=== PATIENT | male | born 1965 | race African-American/Black ===

== ENCOUNTER 2016-11-09 16:06 | Inpatient (IN) | payer OTHER ==
[2016-11-09 16:30] VITALS: BMI 25.2
--- NOTE | 2016-11-09 18:19 | HP ---
CIWA Score - CIWA Score Nausea/Vomitin-No Nausea/No Vomiting Muscle Tremors: 4-Moderate,w/Arms Extend Anxiety: 4-Mod. Anxious/Guarded Agitation: 4-Moderately Restless Paroxysmal Sweats: 3 Orientation: 0-Oriented Tacttile Disturbances: 0-None Auditory Disturbances: 0-None Visual Disturbances: 0-None Headache: 0-None Present CIWA-Ar Total Score: 15 Admission ROS BHS - HPI Chief Complaint: Withdrawal sx. Allergies/Adverse Reactions: Allergies Allergy/AdvReac Type Severity Reaction Status Date / Time No Known Allergies Allergy Verified 09/24/14 17:44 History of Present Illness: 51 y/o man with a long hx. of alcoholism is admitted for detox.Pt. has been in previous detox,reports 3 yrs. drug free. Exam Limitations: No Limitations - Ebola screening Have you traveled outside of the country in the last 21 days: No Have you had contact with anyone from an Ebola affected area: No Have you been sick,other than usual withdrawal symptoms: No Do you have a fever: No - Review of Systems Constitutional: Diaphoresis EENT: reports: No Symptoms Reported Respiratory: reports: No Symptoms reported Cardiac: reports: No Symptoms Reported GI: reports: Nausea, Abdominal cramping : reports: No Symptoms Reported Musculoskeletal: reports: Other (pain in both feet) Integumentary: reports: Sweating Neuro: reports: Tremors Endocrine: reports: No Symptoms Reported Hematology: reports: No Symptoms Reported Psychiatric: reports: No Sypmtoms Reported Other Systems: Reviewed and Negative Patient History - Patient Medical History Hx Anemia: No Hx Asthma: No Hx Chronic Obstructive Pulmonary Disease (COPD): No Hx Cancer: No Hx Cardiac Disorders: No Hx Congestive Heart Failure: No Hx Hypertension: No Hx Hypercholesterolemia: No Hx Pacemaker: No HX Cerebrovascular Accident: No Hx Seizures: No Hx Dementia: No Hx Diabetes: Yes (TYPE II on metformin & lantus) Hx Gastrointestinal Disorders: Yes Hx Liver Disease: No Hx Genitourinary Disorders: No Hx Sexually Transmitted Disorders: No Hx Renal Disease (ESRD): No Hx Thyroid Disease: No Hx Human Immunodeficiency Virus (HIV): No Hx Hepatitis C: No Hx Depression: Yes (ANXIETY) Hx Suicide Attempt: No Hx Bipolar Disorder: No Hx Schizophrenia: No - Patient Surgical History Past Surgical History: No Hx Neurologic Surgery: No Hx Cataract Extraction: No Hx Cardiac Surgery: No Hx Lung Surgery: No Hx Breast Surgery: No Hx Breast Biopsy: No Hx Abdominal Surgery: No Hx Appendectomy: No Hx Cholecystectomy: No Hx Genitourinary Surgery: No Hx Section: No Hx Orthopedic Surgery: No Other Surgical History: right inguinal hernia repair 5 yearsago Anesthesia Reaction: No - PPD History Previous Implant?: Yes Documented Results: Negative w/proof Implanted On Prior [facility] Admission?: Yes Date: 09/26/14 Results: 0mm PPD to be Administered?: Yes - Smoking Cessation Smoking history: Current every day smoker Have you smoked in the past 12 months: Yes Aproximately how many cigarettes per day: 3 Cigars Per Day: 0 Hx Chewing Tobacco Use: No Initiated information on smoking cessation: Yes 'Breaking Loose' booklet given: 11/09/16 - Substance & Tx. History Hx Alcohol Use: Yes Hx Substance Use: Yes Substance Use Type: Alcohol, Cocaine Hx Substance Use Treatment: Yes (Detox) - Substances Abused Alcohol Route: Oral Frequency: Daily Amount used: Vodka 1 pint, Beer 1(pack) Age of first use: 15 Date of Last Use: 11/09/16 Crack Route: Smoking Frequency: Daily Amount used: $200.00 Age of first use: 22 Date of Last Use: 11/09/16 Family Disease History - Family Disease History Family History: Denies Admission Physical Exam [facility] - Vital Signs Vital Signs: Vital Signs - 24 hr 11/09/16 16:27 Temperature 96.2 F L Pulse Rate 89 Respiratory 18 Rate Blood Pressure 140/89 - Physical General Appearance: Yes: Alcohol on Breath, Tremorous, Irritable, Sweating, Anxious HEENTM: Yes: Within Normal Limits Respiratory: Yes: Chest Non-Tender, Lungs Clear, Normal Breath Sounds Neck: Yes: Supple Breast: Yes: Breast Exam Deferred Cardiology: Yes: Regular Rhythm, Regular Rate, S1, S2 Abdominal: Yes: Normal Bowel Sounds, Non Tender, Soft Genitourinary: Yes: Within Normal Limits Back: Yes: Within Normal Limits Musculoskeletal: Yes: Within Normal Limits Extremities: Yes: Tremors Neurological: Yes: Fully Oriented, Alert Integumentary: Yes: Diaphoresis Lymphatic: Yes: Within Normal Limits - Diagnostic (1) Alcohol dependence with uncomplicated withdrawal Current Visit: Yes Status: Acute (2) Cocaine dependence Current Visit: Yes Status: Chronic (3) DM Diabetes mellitus type 2 Current Visit: Yes Status: Chronic (4) Eczema Current Visit: Yes Status: Chronic Qualifiers: Eczema type: flexural Qualified Code(s): L20.82 - Flexural eczema (5) GERD (gastroesophageal reflux disease) Current Visit: Yes Status: Chronic Qualifiers: Esophagitis presence: without esophagitis Qualified Code(s): K21.9 - Gastro-esophageal reflux disease without esophagitis Cleared for Admission BHS - Detox or Rehab [facility] Level of Care: Medically Managed Detox Regimen/Protocol: Librium S Breath Alcohol Content Breath Alcohol Content: 0.066 Urine Drug Screen - Results Drug Screen Negative: No Urine Drug Screen Results: GUERRERO-Cocaine
[2016-11-09] MEDS ORDERED: LOPERAMIDE HCL 2 MG CAPSULE PO PRN (18:28)
[2016-11-09] MEDS ORDERED: MAGNESIUM HYDROX 2400MG/30ML ORAL SUSPENSION 30 ML CUP PO PRN (18:28)
[2016-11-09] MEDS ORDERED: guaiFENesin/D-METHORPHAN HB 10 ML UNIT-DOSE CUPS PO PRN (18:28)
[2016-11-09] MEDS ORDERED: chlordiazePOXIDE HCL 25 MG CAPSULE PO ONE (18:28)
[2016-11-09] MEDS ORDERED: MAG HYDROX/AL HYDROX/SIMETH 30 ML UNIT-DOSE CUP PO PRN (18:28)
[2016-11-09] MEDS ORDERED: P-EPHED 60MG/TRIPROLIDI 2.5MG TABLET PO PRN (18:28)
[2016-11-09] MEDS ORDERED: IBUPROFEN 400 MG TABLET (FP) PO PRN (18:28)
[2016-11-09] MEDS ORDERED: ACETAMINOPHEN 325 MG TABLET (FP) PO PRN (18:28)
[2016-11-09] MEDS ORDERED: diphenhydrAMINE HCL 50 MG CAPSULE PO PRN (18:28)
[2016-11-09] MEDS ORDERED: NICOTINE POLACRILEX 2 MG GUM BUC PRN (18:28)
[2016-11-09] MEDS ORDERED: MAGNESIUM CITRATE 300 ML BOTTLE PO PRN (18:28)
[2016-11-09] MEDS ORDERED: chlordiazePOXIDE HCL 25 MG CAPSULE PO PRN (18:28)
[2016-11-09] MEDS ORDERED: MENTHOL/PHENOL 1 EACH UD MM PRN (18:28)
[2016-11-09] MEDS ORDERED: hydrOXYzine PAMOATE 50 MG CAPSULE (FP) PO PRN (18:28)
[2016-11-09] MEDS: PANTOPRAZOLE 40 MG TABLET (FP) PO SCH (20:16)
[2016-11-09] MEDS ORDERED: INSULIN (NOVOLOG) ASPART 100 UNITS/ML 10ML VIAL ONE (21:58)
[2016-11-09 22:27] LABS: URINE APPEARANCE CLEAR; URINE BILIRUBIN NEGATIVE (NEGATIVE); URINE BLOOD 1+ (NEGATIVE); URINE COLOR LTYELLOW; URINE GLUCOSE (UA) 3+ (NEGATIVE); URINE KETONE 1+ (NEGATIVE); URINE LEUK ESTERASE NEGATIVE (NEGATIVE); URINE NITRITE NEGATIVE (NEGATIVE); URINE UROBILINOGEN NEGATIVE mg/dL (0.2-1.0)
[2016-11-09 22:40] LABS: URINE PROTEIN 2+ (NEGATIVE)
[2016-11-09 22:42] LABS: URINE MUCUS RARE; URINE RBC 1 /hpf (0-3); URINE WBC 2 /hpf (3-5)
[2016-11-09] MEDS: THIAMINE HCL 100 MG TABLET (FP) PO SCH (22:45)
[2016-11-09] MEDS: chlordiazePOXIDE HCL 25 MG CAPSULE PO SCH (22:45)
[2016-11-09] MEDS: INSULIN SLIDING SCALE (NOVOLOG) 1 VIAL SQ SCH (22:49)
[2016-11-09] MEDS: INSULIN DETEMIR 100 UNITS/ML MDV SQ SCH (22:49)
[2016-11-10] MEDS: chlordiazePOXIDE HCL 25 MG CAPSULE PO SCH ×4 (05:47→22:05)
[2016-11-10] MEDS: INSULIN SLIDING SCALE (NOVOLOG) 1 VIAL SQ SCH ×4 (06:54→21:40)
[2016-11-10] MEDS: metFORMIN HCL 500 MG TABLET (FP) PO SCH ×2 (07:51→17:26)
[2016-11-10] MEDS: PRENATAL VITAMINS W/ FOLIC ACID TABLET (FP) PO SCH (10:32)
[2016-11-10] MEDS: PANTOPRAZOLE 40 MG TABLET (FP) PO SCH (10:32)
[2016-11-10 10:35] LABS: ALBUMIN 2.9 g/dl (3.4-5.0); ANION GAP 10 (8-16); CALCIUM 8.2 mg/dL (8.5-10.1); CO2 27 mmol/L (21-32); GLUCOSE,RANDOM 146 mg/dL (74-106); MCH 23.3 pg (25.7-33.7); MCHC 31.9 g/dl (32.0-35.9); MEAN CELL VOLUME 72.9 fl (80-96); MEAN PLT VOLUME 9.3 fl (7.5-11.1); PLATELET COUNT 191 K/MM3 (134-434); RDW 15.8 % (11.9-15.9); WHITE BLOOD COUNT 5.2 K/mm3 (4.0-10.0)
[2016-11-10 10:41] LABS: ALK PHOS 105 U/L (45-117); BILIRUBIN,TOTAL 0.6 mg/dL (0.2-1.0); CREATININE 0.9 mg/dL (0.7-1.3); SGOT/AST 18 U/L (15-37); SGPT/ALT 23 U/L (12-78); TOT PROT 6.7 g/dl (6.4-8.2)
[2016-11-10] MEDS ORDERED: INSULIN (NOVOLOG) ASPART 100 UNITS/ML 10ML VIAL ONE ×2 (11:15→21:33)
--- NOTE | 2016-11-10 13:44 | PN ---
S CIWA - CIWA Score Nausea/Vomitin Muscle Tremors: 4-Moderate,w/Arms Extend Anxiety: 4-Mod. Anxious/Guarded Agitation: 4-Moderately Restless Paroxysmal Sweats: No Perspiration Orientation: 0-Oriented Tacttile Disturbances: 1-Very Mild Itch/Numbness Auditory Disturbances: 0-None Visual Disturbances: 0-None Headache: 2-Mild CIWA-Ar Total Score: 18 BHS Progress Note (SOAP) Subjective: Sweating, nausea, anxious, interrupted sleep Objective: 11/10/16 13:42 Last Vital Signs Temp Pulse Resp BP Pulse Ox 96.5 F L 89 18 124/81 11/10/16 09:24 11/10/16 09:24 11/10/16 09:24 11/10/16 09:24 Laboratory Tests 11/09/16 11/10/16 11/10/16 21:00 05:46 07:45 WBC 5.2 RBC 4.91 Hgb 11.4 L Hct 35.8 MCV 72.9 L MCH 23.3 L MCHC 31.9 L RDW 15.8 Plt Count 191 MPV 9.3 Sodium Potassium Chloride Carbon Dioxide Anion Gap BUN Creatinine Creat Clearance w eGFR POC Glucometer 109 Random Glucose Calcium Total Bilirubin AST ALT Alkaline Phosphatase Total Protein Albumin Urine Color Ltyellow Urine Appearance Clear Urine pH 5.0 Ur Specific [place] 1.025 Urine Protein 2+ H Urine Glucose (UA) 3+ H Urine Ketones 1+ H Urine Blood 1+ H Urine Nitrite Negative Urine Bilirubin Negative Urine Urobilinogen Negative Ur Leukocyte Esterase Negative Urine RBC 1 Urine WBC 2 Ur Epithelial Cells Rare Urine Mucus Rare RPR Titer 11/10/16 11/10/16 11/10/16 07:45 07:45 11:13 WBC RBC Hgb Hct MCV MCH MCHC RDW Plt Count MPV Sodium 140 Potassium 3.8 Chloride 103 Carbon Dioxide 27 Anion Gap 10 BUN 14 Creatinine 0.9 Creat Clearance w eGFR > 60 POC Glucometer 378 Random Glucose 146 H D Calcium 8.2 L Total Bilirubin 0.6 AST 18 D ALT 23 Alkaline Phosphatase 105 D Total Protein 6.7 Albumin 2.9 L Urine Color Urine Appearance Urine pH Ur Specific [place] Urine Protein Urine Glucose (UA) Urine Ketones Urine Blood Urine Nitrite Urine Bilirubin Urine Urobilinogen Ur Leukocyte Esterase Urine RBC Urine WBC Ur Epithelial Cells Urine Mucus RPR Titer Nonreactive Labs noted: Abnormal UA Assessment: 11/10/16 13:44 Withdrawal symptoms Noted with abnormal UA Plan: Continue detox Abnormal UA: encouraged to drink lots of water, repeat UA
[2016-11-10] MEDS: INSULIN DETEMIR 100 UNITS/ML MDV SQ SCH (21:33)
[2016-11-10] MEDS: THIAMINE HCL 100 MG TABLET (FP) PO SCH (21:40)
[2016-11-11] MEDS: chlordiazePOXIDE HCL 25 MG CAPSULE PO SCH ×3 (06:09→16:58)
[2016-11-11] MEDS ORDERED: INSULIN (NOVOLOG) ASPART 100 UNITS/ML 10ML VIAL ONE ×3 (07:25→21:18)
[2016-11-11] MEDS: INSULIN SLIDING SCALE (NOVOLOG) 1 VIAL SQ SCH ×4 (07:27→22:18)
[2016-11-11] MEDS: metFORMIN HCL 500 MG TABLET (FP) PO SCH ×2 (07:27→16:54)
--- NOTE | 2016-11-11 09:59 | EKG ---
Test Reason : Blood Pressure : / mmHG Vent. Rate : 084 BPM Atrial Rate : 084 BPM P-R Int : 146 ms QRS Dur : 090 ms QT Int : 374 ms P-R-T Axes : 070 050 045 degrees QTc Int : 441 ms NORMAL SINUS RHYTHM NORMAL ECG NO PREVIOUS ECGS AVAILABLE Confirmed by SURJIT HERNÁNDEZ MD ([id number]) on 11/11/2016 9:58:37 AM Referred By: Confirmed By:SURJIT HERNÁNDEZ MD
[2016-11-11] MEDS: PRENATAL VITAMINS W/ FOLIC ACID TABLET (FP) PO SCH (10:22)
[2016-11-11] MEDS: PANTOPRAZOLE 40 MG TABLET (FP) PO SCH (10:22)
--- NOTE | 2016-11-11 11:34 | PN ---
[facility] CIWA - CIWA Score Nausea/Vomitin-No Nausea/No Vomiting Muscle Tremors: 3 Anxiety: 2 Agitation: 2 Paroxysmal Sweats: 3 Orientation: 0-Oriented Tacttile Disturbances: 0-None Auditory Disturbances: 0-None Visual Disturbances: 0-None Headache: 0-None Present CIWA-Ar Total Score: 10 [facility] Progress Note (SOAP) Subjective: Anxiety,tremors,sweating,interrupted sleep,restless Objective: 11/11/16 11:34 Vital Signs - 8 hr 11/11/16 11/11/16 04:00 09:10 Temperature 97.4 F L 97.6 F Pulse Rate 94 H 81 Respiratory 18 18 Rate Blood Pressure 138/83 133/87 Laboratory Last Values WBC 5.2 K/mm3 (4.0-10.0) 11/10/16 07:45 RBC 4.91 M/mm3 (4.00-5.60) 11/10/16 07:45 Hgb 11.4 GM/dL (11.7-16.9) L 11/10/16 07:45 Hct 35.8 % (35.4-49) 11/10/16 07:45 MCV 72.9 fl (80-96) L 11/10/16 07:45 MCH 23.3 pg (25.7-33.7) L 11/10/16 07:45 MCHC 31.9 g/dl (32.0-35.9) L 11/10/16 07:45 RDW 15.8 % (11.9-15.9) 11/10/16 07:45 Plt Count 191 K/MM3 (134-434) 11/10/16 07:45 MPV 9.3 fl (7.5-11.1) 11/10/16 07:45 Sodium 140 mmol/L (136-145) 11/10/16 07:45 Potassium 3.8 mmol/L (3.5-5.1) 11/10/16 07:45 Chloride 103 mmol/L (98-107) 11/10/16 07:45 Carbon Dioxide 27 mmol/L (21-32) 11/10/16 07:45 Anion Gap 10 (8-16) 11/10/16 07:45 BUN 14 mg/dL (7-18) 11/10/16 07:45 Creatinine 0.9 mg/dL (0.7-1.3) 11/10/16 07:45 Creat Clearance w eGFR > 60 (>60) 11/10/16 07:45 POC Glucometer 315 UNITS (()) 11/11/16 06:12 Random Glucose 146 mg/dL (74-106) H D 11/10/16 07:45 Calcium 8.2 mg/dL (8.5-10.1) L 11/10/16 07:45 Total Bilirubin 0.6 mg/dL (0.2-1.0) 11/10/16 07:45 AST 18 U/L (15-37) D 11/10/16 07:45 ALT 23 U/L (12-78) 11/10/16 07:45 Alkaline Phosphatase 105 U/L (45-117) D 11/10/16 07:45 Total Protein 6.7 g/dl (6.4-8.2) 11/10/16 07:45 Albumin 2.9 g/dl (3.4-5.0) L 11/10/16 07:45 Urine Color Ltyellow 11/09/16 21:00 Urine Appearance Clear 11/09/16 21:00 Urine pH 5.0 (5.0-8.0) 11/09/16 21:00 Ur Specific [place] 1.025 (1.005-1.025) 11/09/16 21:00 Urine Protein 2+ (NEGATIVE) H 11/09/16 21:00 Urine Glucose (UA) 3+ (NEGATIVE) H 11/09/16 21:00 Urine Ketones 1+ (NEGATIVE) H 11/09/16 21:00 Urine Blood 1+ (NEGATIVE) H 11/09/16 21:00 Urine Nitrite Negative (NEGATIVE) 11/09/16 21:00 Urine Bilirubin Negative (NEGATIVE) 11/09/16 21:00 Urine Urobilinogen Negative mg/dL (0.2-1.0) 11/09/16 21:00 Ur Leukocyte Esterase Negative (NEGATIVE) 11/09/16 21:00 Urine RBC 1 /hpf (0-3) 11/09/16 21:00 Urine WBC 2 /hpf (3-5) 11/09/16 21:00 Ur Epithelial Cells Rare /hpf (FEW) 11/09/16 21:00 Urine Mucus Rare 11/09/16 21:00 RPR Titer Nonreactive (NONREACTIVE) 11/10/16 07:45 labs noted Assessment: 11/11/16 11:35 Withdrawal sx. Plan: Continue detox
--- NOTE | 2016-11-11 12:27 | CONSULT ---
[facility] Psychiatric Consult - Data Date of interview: 11/11/16 Admission source: [facility] Identifying data: This is one of multiple admissions to [facility] for this 51 y/ o AA male seeking detox treatment on for alcohol and cocaine (crack) dependence.Patient is single without children,homeless,unemployed and supported on SSI benefits. Substance Abuse History: Discussed in detail with the patient in my interview.Mr Zazueta confirms data contained in this [facility] report. - Smoking Cessation. Smoking history: Current every day smoker. Have you smoked in the past 12 months: Yes. Aproximately how many cigarettes per day: 3. Cigars Per Day: 0. Hx Chewing Tobacco Use: No. Initiated information on smoking cessation : Yes. 'Breaking Loose' booklet given: 11/09/16. - Substance & Tx. History. Hx Alcohol Use: Yes. Hx Substance Use: Yes. Substance Use Type: Alcohol, Cocaine. Hx Substance Use Treatment: Yes (Detox). - Substances Abused. Alcohol. Route: Oral. Frequency: Daily. Amount used: Vodka 1 pint, Beer 1( pack). Age of first use: 15. Date of Last Use: 11/09/16. Crack. Route: Smoking. Frequency: Daily. Amount used: $200.00. Age of first use: 22. Date of Last Use: 11/09/16 Medical History: GERD and diabetes mellitus. Psychiatric History: Diagnosed with Bipolar Disorder.Patient reports one admission,years ago,to [facility].No OPD care for several months.Patient has abstained from all aspects of psychiatric care.Still not willing to get back on medications.Mr Zazueta states that he has no recall of the names of psychotropic medications prescribed to him in the past.He denies history of suicide attempts. Physical/Sexual Abuse/Trauma History: Patient denies. Additional Comment: Urine Drug Screen Results: GUERRERO-Cocaine.Noted. Mental Status Exam - Mental Status Exam Alert and Oriented to: Time, Place, Person Cognitive Function: Good Patient Appearance: Well Groomed Mood: Hopeful, Euthymic Affect: Normal Range Patient Behavior: Fatigued, Appropriate, Cooperative Speech Pattern: Clear Voice Loudness: Normal Thought Process: Goal Oriented Thought Disorder: Not Present Hallucinations: Denies Suicidal Ideation: Denies Homicidal Ideation: Denies Insight/Judgement: Poor Sleep: Poorly, Difficulty falling asleep Appetite: Good Muscle strength/Tone: Normal Gait/Station: Normal Psychiatric Findings - Problem List ([place] 1, 2,3) (1) Alcohol dependence with uncomplicated withdrawal Current Visit: Yes Status: Acute (2) Cocaine dependence Current Visit: Yes Status: Acute (3) Nicotine dependence Current Visit: Yes Status: Acute (4) Drug-induced mood disorder Current Visit: Yes Status: Acute (5) DM Diabetes mellitus type 2 Current Visit: Yes Status: Chronic (6) Eczema Current Visit: Yes Status: Chronic Qualifiers: Eczema type: flexural Qualified Code(s): L20.82 - Flexural eczema (7) GERD (gastroesophageal reflux disease) Current Visit: Yes Status: Chronic Qualifiers: Esophagitis presence: without esophagitis Qualified Code(s): K21.9 - Gastro-esophageal reflux disease without esophagitis - Initial Treatment Plan Initial Treatment Plan: Psychoeducation.Detoxification.Ambien 10 mg po hs prn.Patient made aware of potential for parasomnias.he agrees with careplan.Observation.
[2016-11-11] MEDS ORDERED: ZOLPIDEM TARTRATE 10 MG TABLET (PARK CARE ONLY) PO PRN (22:00)
[2016-11-11] MEDS: INSULIN DETEMIR 100 UNITS/ML MDV SQ SCH (22:18)
[2016-11-11] MEDS: THIAMINE HCL 100 MG TABLET (FP) PO SCH (22:19)
[2016-11-11] MEDS: chlordiazePOXIDE 5 MG CAPSULE PO SCH (22:19)
[2016-11-12] MEDS: chlordiazePOXIDE 5 MG CAPSULE PO SCH ×3 (05:57→17:30)
[2016-11-12] MEDS: metFORMIN HCL 500 MG TABLET (FP) PO SCH ×2 (06:01→17:30)
[2016-11-12] MEDS: INSULIN SLIDING SCALE (NOVOLOG) 1 VIAL SQ SCH ×4 (08:00→22:15)
[2016-11-12] MEDS ORDERED: INSULIN (NOVOLOG) ASPART 100 UNITS/ML 10ML VIAL ONE ×3 (08:45→20:54)
[2016-11-12] MEDS: PRENATAL VITAMINS W/ FOLIC ACID TABLET (FP) PO SCH (10:19)
[2016-11-12] MEDS: PANTOPRAZOLE 40 MG TABLET (FP) PO SCH (10:19)
--- NOTE | 2016-11-12 10:25 | PN ---
BHS Progress Note (SOAP) Subjective: Sweating,interrupted sleep,restless Objective: 11/12/16 10:23 Vital Signs - 8 hr 11/12/16 11/12/16 06:09 09:48 Temperature 97.3 F L 98.1 F Pulse Rate 85 60 Respiratory 18 18 Rate Blood Pressure 153/96 130/93 Assessment: 11/12/16 10:24 Withdrawal sx. Plan: Continue detox
[2016-11-12 21:59] VITALS: TEMP 97.1
[2016-11-12] MEDS: THIAMINE HCL 100 MG TABLET (FP) PO SCH (22:12)
[2016-11-12] MEDS: chlordiazePOXIDE HCL 10 MG CAPSULE PO SCH (22:12)
[2016-11-12] MEDS: INSULIN DETEMIR 100 UNITS/ML MDV SQ SCH (22:15)
[2016-11-13] MEDS: metFORMIN HCL 500 MG TABLET (FP) PO SCH (06:11)
[2016-11-13] MEDS: chlordiazePOXIDE HCL 10 MG CAPSULE PO SCH (06:11)
[2016-11-13 06:44] VITALS: BP 151/98; PULSE 80
[2016-11-13] MEDS ORDERED: INSULIN (NOVOLOG) ASPART 100 UNITS/ML 10ML VIAL ONE (07:38)
[2016-11-13] MEDS: INSULIN SLIDING SCALE (NOVOLOG) 1 VIAL SQ SCH (07:41)
[2016-11-13] MEDS: PANTOPRAZOLE 40 MG TABLET (FP) PO SCH (09:20)
[2016-11-13] MEDS: PRENATAL VITAMINS W/ FOLIC ACID TABLET (FP) PO SCH (09:20)
--- NOTE | 2016-11-13 11:47 | DS ---
[facility] Detox Discharge Summary Admission Date: 11/09/16 Discharge Date: 11/13/16 - History Present History: Alcohol Dependence, Cocaine Dependence Additional Comments: PATIENT TO ATTEND [facility] LONG-TERM RESIDENTIAL PROGRAM ([place], [place]). PATIENT ADVISED TO FOLLOW-UP THERE FOR AFTERCARE DIRECTED. Pertinent Past History: GERD, Type II DM, Eczema. - Physical Exam Results Vital Signs: Vital Signs Temperature 97.1 F L 11/13/16 06:43 Pulse Rate 80 11/13/16 06:43 Respiratory Rate 18 11/13/16 06:43 Blood Pressure 151/98 11/13/16 06:43 O2 Sat by Pulse Oximetry (%) Pertinent Admission Physical Exam Findings: WITHDRAWAL SYMPTOMS. Laboratory Tests 11/09/16 11/10/16 11/10/16 21:00 05:46 07:45 WBC 5.2 RBC 4.91 Hgb 11.4 L Hct 35.8 MCV 72.9 L MCH 23.3 L MCHC 31.9 L RDW 15.8 Plt Count 191 MPV 9.3 Sodium Potassium Chloride Carbon Dioxide Anion Gap BUN Creatinine Creat Clearance w eGFR POC Glucometer 109 Random Glucose Calcium Total Bilirubin AST ALT Alkaline Phosphatase Total Protein Albumin Urine Color Ltyellow Urine Appearance Clear Urine pH 5.0 Ur Specific [place] 1.025 Urine Protein 2+ H Urine Glucose (UA) 3+ H Urine Ketones 1+ H Urine Blood 1+ H Urine Nitrite Negative Urine Bilirubin Negative Urine Urobilinogen Negative Ur Leukocyte Esterase Negative Urine RBC 1 Urine WBC 2 Ur Epithelial Cells Rare Urine Mucus Rare RPR Titer 11/10/16 11/10/16 11/10/16 07:45 07:45 11:13 WBC RBC Hgb Hct MCV MCH MCHC RDW Plt Count MPV Sodium 140 Potassium 3.8 Chloride 103 Carbon Dioxide 27 Anion Gap 10 BUN 14 Creatinine 0.9 Creat Clearance w eGFR > 60 POC Glucometer 378 Random Glucose 146 H D Calcium 8.2 L Total Bilirubin 0.6 AST 18 D ALT 23 Alkaline Phosphatase 105 D Total Protein 6.7 Albumin 2.9 L Urine Color Urine Appearance Urine pH Ur Specific [place] Urine Protein Urine Glucose (UA) Urine Ketones Urine Blood Urine Nitrite Urine Bilirubin Urine Urobilinogen Ur Leukocyte Esterase Urine RBC Urine WBC Ur Epithelial Cells Urine Mucus RPR Titer Nonreactive 11/10/16 11/11/16 11/11/16 16:11 06:12 16:18 WBC RBC Hgb Hct MCV MCH MCHC RDW Plt Count MPV Sodium Potassium Chloride Carbon Dioxide Anion Gap BUN Creatinine Creat Clearance w eGFR POC Glucometer 106 315 272 Random Glucose Calcium Total Bilirubin AST ALT Alkaline Phosphatase Total Protein Albumin Urine Color Urine Appearance Urine pH Ur Specific [place] Urine Protein Urine Glucose (UA) Urine Ketones Urine Blood Urine Nitrite Urine Bilirubin Urine Urobilinogen Ur Leukocyte Esterase Urine RBC Urine WBC Ur Epithelial Cells Urine Mucus RPR Titer 11/11/16 11/12/16 11/12/16 20:46 06:00 16:11 WBC RBC Hgb Hct MCV MCH MCHC RDW Plt Count MPV Sodium Potassium Chloride Carbon Dioxide Anion Gap BUN Creatinine Creat Clearance w eGFR POC Glucometer 336 248 336 Random Glucose Calcium Total Bilirubin AST ALT Alkaline Phosphatase Total Protein Albumin Urine Color Urine Appearance Urine pH Ur Specific [place] Urine Protein Urine Glucose (UA) Urine Ketones Urine Blood Urine Nitrite Urine Bilirubin Urine Urobilinogen Ur Leukocyte Esterase Urine RBC Urine WBC Ur Epithelial Cells Urine Mucus RPR Titer 11/12/16 11/13/16 20:24 06:10 WBC RBC Hgb Hct MCV MCH MCHC RDW Plt Count MPV Sodium Potassium Chloride Carbon Dioxide Anion Gap BUN Creatinine Creat Clearance w eGFR POC Glucometer 253 227 Random Glucose Calcium Total Bilirubin AST ALT Alkaline Phosphatase Total Protein Albumin Urine Color Urine Appearance Urine pH Ur Specific [place] Urine Protein Urine Glucose (UA) Urine Ketones Urine Blood Urine Nitrite Urine Bilirubin Urine Urobilinogen Ur Leukocyte Esterase Urine RBC Urine WBC Ur Epithelial Cells Urine Mucus RPR Titer LABS NOTED. - Treatment Hospital Course: Detox Protocol Followed, Detoxed Safely, Responded well, Discharged Condition Good Patient has Accepted a Rehab Referral to: PT. TO GO TO [facility] LONG-TERM RESIDENTIAL PROGRAM. - Medication Discharge Medications: Ambulatory Orders Metformin HCl [Glucophage] 1,000 mg PO BIDAC #0 tablet 04/19/11 Omeprazole [Prilosec (RX)] 40 mg PO DAILY #30 capsule. 09/29/14 Insulin Glargine,Hum.rec.anlog [Lantus Solostar PEN -] 20 units SQ HS #1 ins 04/30 Metformin HCl [Glucophage -] 1,000 mg PO BID@0700,1630 #120 mg 11/12/16 - Diagnosis (1) Alcohol dependence with uncomplicated withdrawal Status: Acute (2) Cocaine dependence Status: Acute (3) Drug-induced mood disorder Status: Acute (4) Nicotine dependence Status: Chronic Qualifiers: Nicotine product type: cigarettes Substance use status: uncomplicated Qualified Code(s): F17.210 - Nicotine dependence, cigarettes, uncomplicated (5) DM Diabetes mellitus type 2 Status: Chronic (6) Eczema Status: Chronic Qualifiers: Eczema type: flexural Qualified Code(s): L20.82 - Flexural eczema (7) GERD (gastroesophageal reflux disease) Status: Chronic Qualifiers: Esophagitis presence: without esophagitis Qualified Code(s): K21.9 - Gastro-esophageal reflux disease without esophagitis - AMA Did Patient Leave Against Medical Advice: No
== END 2016-11-13 09:35 | disposition home or self-care (01) | DRG 774 ==
LOC: YASAS 16:06 → Y3N 18:10
PROVIDERS: ADMIT Internal Medicine; ATTEND Internal Medicine
PROC: HZ2ZZZZ Detoxification Services for Substance Abuse Treatment (ICD-10-PCS; principal; 2016-11-09)
DX: F10.230 Alcohol dependence with withdrawal, uncomplicated (principal); F14.20 Cocaine dependence, uncomplicated; F17.210 Nicotine dependence, cigarettes, uncomplicated; F19.24 Other psychoactive substance dependence with psychoactive substance-induced mood disorder; E11.9 Type 2 diabetes mellitus without complications; K21.9 Gastro-esophageal reflux disease without esophagitis; L20.82 Flexural eczema; R82.90 Unspecified abnormal findings in urine; Z79.84 Long term (current) use of oral hypoglycemic drugs
CPT/HCPCS: 36415; 80053; 81003; 81015; 85027; 86593; 93005; 93010

== ENCOUNTER 2017-01-19 11:02 | Inpatient (IN) | payer OTHER ==
[2017-01-19 12:02] VITALS: BMI 27.2
--- NOTE | 2017-01-19 14:59 | HP ---
CIWA Score - CIWA Score Nausea/Vomitin-No Nausea/No Vomiting Muscle Tremors: 3 Anxiety: 4-Mod. Anxious/Guarded Agitation: 3 Paroxysmal Sweats: 1-Minimal Palms Moist Orientation: 0-Oriented Tacttile Disturbances: 0-None Auditory Disturbances: 0-None Visual Disturbances: 0-None Headache: 0-None Present CIWA-Ar Total Score: 11 Admission ROS BHS - HPI Chief Complaint: Withdrawal sx. Allergies/Adverse Reactions: Allergies Allergy/AdvReac Type Severity Reaction Status Date / Time No Known Allergies Allergy Verified 11/10/16 00:39 History of Present Illness: 51 y/o man with a long hx. of alcohol & cocaine dependence is admitted for detox. Pt. has been in previous detox, he reports 3 yrs sobriety. Exam Limitations: No Limitations - Ebola screening Have you traveled outside of the country in the last 21 days: No Have you had contact with anyone from an Ebola affected area: No Have you been sick,other than usual withdrawal symptoms: No Do you have a fever: No - Review of Systems Constitutional: Diaphoresis EENT: reports: No Symptoms Reported Respiratory: reports: No Symptoms reported Cardiac: reports: No Symptoms Reported GI: reports: Abdominal cramping : reports: Frequency Musculoskeletal: reports: No Symptoms Reported Integumentary: reports: Flushing Neuro: reports: Tremors Endocrine: reports: Increased Thirst, Increased Urine Hematology: reports: No Symptoms Reported Psychiatric: reports: No Sypmtoms Reported Other Systems: Reviewed and Negative Patient History - Patient Medical History Hx Anemia: No Hx Asthma: No Hx Chronic Obstructive Pulmonary Disease (COPD): No Hx Cancer: No Hx Cardiac Disorders: No Hx Congestive Heart Failure: No Hx Hypertension: No Hx Hypercholesterolemia: No Hx Pacemaker: No HX Cerebrovascular Accident: No Hx Seizures: No Hx Dementia: No Hx Diabetes: Yes Hx Gastrointestinal Disorders: Yes (GERD) Hx Liver Disease: No Hx Genitourinary Disorders: No Hx Sexually Transmitted Disorders: No Hx Renal Disease (ESRD): No Hx Thyroid Disease: No Hx Human Immunodeficiency Virus (HIV): No Hx Hepatitis C: No Hx Depression: No Hx Suicide Attempt: No Hx Bipolar Disorder: No Hx Schizophrenia: No - Patient Surgical History Past Surgical History: No Hx Neurologic Surgery: No Hx Cataract Extraction: No Hx Cardiac Surgery: No Hx Lung Surgery: No Hx Breast Surgery: No Hx Breast Biopsy: No Hx Abdominal Surgery: No Hx Appendectomy: No Hx Cholecystectomy: No Hx Genitourinary Surgery: No Hx Section: No Hx Orthopedic Surgery: No Other Surgical History: right inguinal hernia repair in 2007 Anesthesia Reaction: No - PPD History Previous Implant?: Yes Documented Results: Negative w/proof Implanted On Prior [facility] Admission?: Yes Date: 11/11/16 Results: 0mm PPD to be Administered?: No - Smoking Cessation Smoking history: Current every day smoker Have you smoked in the past 12 months: Yes Aproximately how many cigarettes per day: 5 Cigars Per Day: 0 Hx Chewing Tobacco Use: No Initiated information on smoking cessation: Yes 'Breaking Loose' booklet given: 01/19/17 - Substance & Tx. History Hx Alcohol Use: Yes Hx Substance Use: Yes Substance Use Type: Alcohol, Cocaine Hx Substance Use Treatment: Yes (Detox at [facility] in 10/2016) - Substances Abused Alcohol Route: Oral Frequency: Daily Amount used: Vodka 1-2 pints, Beer 40 oz Age of first use: 15 Date of Last Use: 01/19/17 Cocaine Route: Inhalation Frequency: Daily Amount used: 1 gm Age of first use: 19 Date of Last Use: 01/18/17 Family Disease History - Family Disease History Family History: Unable to Obtain (pt. does not know) Admission Physical Exam S - Vital Signs Vital Signs: Vital Signs - 24 hr 01/19/17 12:00 Temperature 96.6 F L Pulse Rate 83 Respiratory 20 Rate Blood Pressure 152/82 - Physical General Appearance: Yes: Tremorous, Irritable, Sweating, Anxious HEENTM: Yes: Within Normal Limits Respiratory: Yes: Chest Non-Tender, Lungs Clear, Normal Breath Sounds Neck: Yes: Supple Breast: Yes: Breast Exam Deferred Cardiology: Yes: Regular Rhythm, Regular Rate, S1, S2 Abdominal: Yes: Normal Bowel Sounds, Non Tender, Soft Genitourinary: Yes: Within Normal Limits Back: Yes: Within Normal Limits Musculoskeletal: Yes: Within Normal Limits Extremities: Yes: Tremors Neurological: Yes: Fully Oriented, Alert Integumentary: Yes: Diaphoresis Lymphatic: Yes: Within Normal Limits - Diagnostic (1) Alcohol dependence with uncomplicated withdrawal Current Visit: Yes Status: Acute (2) Cocaine dependence Current Visit: Yes Status: Acute (3) DM Diabetes mellitus type 2 Current Visit: Yes Status: Chronic (4) GERD (gastroesophageal reflux disease) Current Visit: Yes Status: Chronic Qualifiers: Esophagitis presence: without esophagitis Qualified Code(s): K21.9 - Gastro-esophageal reflux disease without esophagitis; K21.9 - Gastro- esophageal reflux disease without esophagitis; K21.9 - Gastro-esophageal reflux disease without esophagitis (5) Nicotine dependence Current Visit: Yes Status: Chronic Qualifiers: Nicotine product type: cigarettes Substance use status: uncomplicated Qualified Code(s): F17.210 - Nicotine dependence, cigarettes, uncomplicated; F17.210 - Nicotine dependence, cigarettes, uncomplicated Cleared for Admission BHS - Detox or Rehab S Level of Care: Medically Managed Detox Regimen/Protocol: Librium S Breath Alcohol Content Breath Alcohol Content: 0 Urine Drug Screen - Results Drug Screen Negative: No Urine Drug Screen Results: GUERRERO-Cocaine
[2017-01-19] MEDS ORDERED: NICOTINE POLACRILEX 2 MG GUM BC PRN (15:06)
[2017-01-19] MEDS ORDERED: LOPERAMIDE HCL 2 MG CAPSULE PO PRN (15:06)
[2017-01-19] MEDS ORDERED: MENTHOL/PHENOL 1 EACH UD MM PRN (15:06)
[2017-01-19] MEDS ORDERED: P-EPHED 60MG/TRIPROLIDI 2.5MG TABLET PO PRN (15:06)
[2017-01-19] MEDS ORDERED: IBUPROFEN 400 MG TABLET (FP) PO PRN (15:06)
[2017-01-19] MEDS ORDERED: ACETAMINOPHEN 325 MG TABLET (FP) PO PRN (15:06)
[2017-01-19] MEDS ORDERED: MAG HYDROX/AL HYDROX/SIMETH 30 ML UNIT-DOSE CUP PO PRN (15:06)
[2017-01-19] MEDS ORDERED: MAGNESIUM CITRATE 300 ML BOTTLE PO PRN (15:06)
[2017-01-19] MEDS ORDERED: guaiFENesin/D-METHORPHAN HB 10 ML UNIT-DOSE CUPS PO PRN (15:06)
[2017-01-19] MEDS ORDERED: hydrOXYzine PAMOATE 50 MG CAPSULE (FP) PO PRN (15:06)
[2017-01-19] MEDS ORDERED: MAGNESIUM HYDROX 2400MG/30ML ORAL SUSPENSION 30 ML CUP PO PRN (15:06)
[2017-01-19] MEDS ORDERED: chlordiazePOXIDE HCL 25 MG CAPSULE PO ONE (15:06)
[2017-01-19] MEDS ORDERED: diphenhydrAMINE HCL 50 MG CAPSULE PO PRN (15:06)
[2017-01-19] MEDS ORDERED: chlordiazePOXIDE HCL 25 MG CAPSULE PO PRN (15:06)
[2017-01-19] MEDS: metFORMIN HCL 500 MG TABLET (FP) PO SCH (17:25)
[2017-01-19] MEDS: PANTOPRAZOLE 40 MG TABLET (FP) PO SCH (17:26)
[2017-01-19] MEDS: chlordiazePOXIDE HCL 25 MG CAPSULE PO SCH ×2 (17:27→22:32)
[2017-01-19] MEDS: INSULIN (NOVOLOG) ASPART 100 UNITS/ML 10ML VIAL SQ SCH ×2 (17:28→22:36)
[2017-01-19] MEDS ORDERED: INSULIN (NOVOLOG) ASPART 100 UNITS/ML 10ML VIAL ONE ×2 (17:35→22:04)
[2017-01-19 21:42] LABS: URINE APPEARANCE SLCLOUDY; URINE BILIRUBIN NEGATIVE (NEGATIVE); URINE BLOOD 1+ (NEGATIVE); URINE COLOR LTYELLOW; URINE GLUCOSE (UA) 3+ (NEGATIVE); URINE KETONE NEGATIVE (NEGATIVE); URINE NITRITE NEGATIVE (NEGATIVE); URINE UROBILINOGEN NEGATIVE mg/dL (0.2-1.0)
[2017-01-19 22:02] LABS: URINE PROTEIN 2+ (NEGATIVE)
[2017-01-19 22:10] LABS: URINE BACTERIA RARE /hpf (NONE SEEN); URINE HYALINE CAST 1 /lpf; URINE MUCUS RARE; URINE RBC 8 /hpf (0-3); URINE WBC 11 /hpf (3-5)
[2017-01-19] MEDS: THIAMINE HCL 100 MG TABLET (FP) PO SCH (22:32)
[2017-01-19] MEDS: INSULIN DETEMIR 100 UNITS/ML MDV SQ SCH (22:36)
[2017-01-20] MEDS: INSULIN (NOVOLOG) ASPART 100 UNITS/ML 10ML VIAL SQ SCH ×4 (07:17→22:00)
[2017-01-20] MEDS: chlordiazePOXIDE HCL 25 MG CAPSULE PO SCH ×4 (07:17→22:00)
[2017-01-20] MEDS: metFORMIN HCL 500 MG TABLET (FP) PO SCH ×2 (08:24→17:18)
--- NOTE | 2017-01-20 09:31 | PN ---
[facility] CIWA - CIWA Score Nausea/Vomitin-No Nausea/No Vomiting Muscle Tremors: 3 Anxiety: 2 Agitation: 4-Moderately Restless Paroxysmal Sweats: 3 Orientation: 0-Oriented Tacttile Disturbances: 0-None Auditory Disturbances: 0-None Visual Disturbances: 0-None Headache: 0-None Present CIWA-Ar Total Score: 12 S Progress Note (SOAP) Subjective: tired sleepy groggy sweats Objective: 01/20/17 09:30 Vital Signs Temperature 98 F 01/20/17 06:45 Pulse Rate 82 01/20/17 06:45 Respiratory Rate 18 01/20/17 06:45 Blood Pressure 114/62 01/20/17 06:45 O2 Sat by Pulse Oximetry (%) Laboratory Tests 01/19/17 01/19/17 01/19/17 15:28 17:25 17:53 POC Glucometer 355 231 Urine Color Ltyellow Urine Appearance Slcloudy Urine pH 5.0 Urine Protein 2+ H Urine Glucose (UA) 3+ H Urine Ketones Negative Urine Blood 1+ H Urine Nitrite Negative Urine Bilirubin Negative Urine Urobilinogen Negative Urine RBC 8 Urine WBC 11 Ur Epithelial Cells Rare Urine Bacteria Rare Hyaline Casts 1 Urine Mucus Rare 01/19/17 01/20/17 21:57 06:58 POC Glucometer 179 127 Urine Color Urine Appearance Urine pH Urine Protein Urine Glucose (UA) Urine Ketones Urine Blood Urine Nitrite Urine Bilirubin Urine Urobilinogen Urine RBC Urine WBC Ur Epithelial Cells Urine Bacteria Hyaline Casts Urine Mucus labs pending AAOx3 ambulating no acute distress Assessment: 01/20/17 09:30 withdrawal sx Plan: continue detox increase fluids hold 10am librium
[2017-01-20] MEDS: PRENATAL VITAMINS W/ FOLIC ACID TABLET (FP) PO SCH (10:17)
[2017-01-20] MEDS: PANTOPRAZOLE 40 MG TABLET (FP) PO SCH (10:17)
[2017-01-20 10:55] LABS: ALBUMIN 2.8 g/dl (3.4-5.0); ALK PHOS 88 U/L (45-117); ANION GAP 3 (8-16); BILIRUBIN,TOTAL 0.3 mg/dL (0.2-1.0); CALCIUM 7.8 mg/dL (8.5-10.1); CO2 30 mmol/L (21-32); CREATININE 0.8 mg/dL (0.7-1.3); GLUCOSE,RANDOM 119 mg/dL (74-106); SGOT/AST 14 U/L (15-37); SGPT/ALT 32 U/L (12-78); TOT PROT 6.1 g/dl (6.4-8.2)
[2017-01-20 11:12] LABS: MCH 22.3 pg (25.7-33.7); MCHC 30.7 g/dl (32.0-35.9); MEAN CELL VOLUME 72.7 fl (80-96); MEAN PLT VOLUME 9.5 fl (7.5-11.1); PLATELET COUNT 177 K/MM3 (134-434); RDW 16.9 % (11.9-15.9); WHITE BLOOD COUNT 5.3 K/mm3 (4.0-10.0)
[2017-01-20] MEDS ORDERED: INSULIN (NOVOLOG) ASPART 100 UNITS/ML 10ML VIAL ONE ×3 (12:10→21:54)
--- NOTE | 2017-01-20 12:45 | EKG ---
Test Reason : Blood Pressure : / mmHG Vent. Rate : 077 BPM Atrial Rate : 077 BPM P-R Int : 150 ms QRS Dur : 094 ms QT Int : 392 ms P-R-T Axes : 062 037 046 degrees QTc Int : 443 ms NORMAL SINUS RHYTHM NORMAL ECG WHEN COMPARED WITH ECG OF 09-NOV-2016 19:21, NO SIGNIFICANT CHANGE WAS FOUND Confirmed by SURJIT HERNÁNDEZ MD ([id number]) on 01/20/2017 12:44:42 PM Referred By: Segundo Amin Confirmed By:SURJIT HERNÁNDEZ MD
[2017-01-20 14:27] LABS: URINE LEUK ESTERASE Negative (NEGATIVE)
--- NOTE | 2017-01-20 16:06 | CONSULT ---
[facility] Psychiatric Consult - Data Date of interview: 01/20/17 Admission source: Patient refused psychiatric evaluation.RN Ms Garcia is made aware.
[2017-01-20] MEDS: THIAMINE HCL 100 MG TABLET (FP) PO SCH (21:55)
[2017-01-20] MEDS: INSULIN DETEMIR 100 UNITS/ML MDV SQ SCH (22:00)
[2017-01-21] MEDS: metFORMIN HCL 500 MG TABLET (FP) PO SCH ×2 (08:22→17:57)
[2017-01-21] MEDS: chlordiazePOXIDE HCL 25 MG CAPSULE PO SCH ×2 (08:25→10:27)
[2017-01-21] MEDS: INSULIN (NOVOLOG) ASPART 100 UNITS/ML 10ML VIAL SQ SCH ×4 (08:33→22:36)
--- NOTE | 2017-01-21 09:53 | PN ---
[facility] CIWA - CIWA Score Nausea/Vomitin-No Nausea/No Vomiting Muscle Tremors: 3 Anxiety: 3 Agitation: 3 Paroxysmal Sweats: 2 Orientation: 0-Oriented Tacttile Disturbances: 0-None Auditory Disturbances: 0-None Visual Disturbances: 0-None Headache: 0-None Present CIWA-Ar Total Score: 11 S Progress Note (SOAP) Subjective: irritable agitation anxiety Objective: 01/21/17 09:51 Vital Signs Temperature 97.5 F L 01/21/17 09:39 Pulse Rate 93 H 01/21/17 09:39 Respiratory Rate 20 01/21/17 09:39 Blood Pressure 158/92 01/21/17 09:39 O2 Sat by Pulse Oximetry (%) Laboratory Tests 01/19/17 01/19/17 01/19/17 15:28 17:25 17:53 WBC RBC Hgb Hct MCV MCH MCHC RDW Plt Count MPV Sodium Potassium Chloride Carbon Dioxide Anion Gap BUN Creatinine Creat Clearance w eGFR POC Glucometer 355 231 Random Glucose Calcium Total Bilirubin AST ALT Alkaline Phosphatase Total Protein Albumin Urine Color Ltyellow Urine Appearance Slcloudy Urine pH 5.0 Ur Specific [place] 1.020 Urine Protein 2+ H Urine Glucose (UA) 3+ H Urine Ketones Negative Urine Blood 1+ H Urine Nitrite Negative Urine Bilirubin Negative Urine Urobilinogen Negative Ur Leukocyte Esterase Negative Urine RBC 8 Urine WBC 11 Ur Epithelial Cells Rare Urine Bacteria Rare Hyaline Casts 1 Urine Mucus Rare RPR Titer 01/19/17 01/20/17 01/20/17 21:57 06:58 07:00 WBC 5.3 RBC 5.02 Hgb 11.2 L Hct 36.5 MCV 72.7 L MCH 22.3 L MCHC 30.7 L RDW 16.9 H Plt Count 177 MPV 9.5 Sodium Potassium Chloride Carbon Dioxide Anion Gap BUN Creatinine Creat Clearance w eGFR POC Glucometer 179 127 Random Glucose Calcium Total Bilirubin AST ALT Alkaline Phosphatase Total Protein Albumin Urine Color Urine Appearance Urine pH Ur Specific [place] Urine Protein Urine Glucose (UA) Urine Ketones Urine Blood Urine Nitrite Urine Bilirubin Urine Urobilinogen Ur Leukocyte Esterase Urine RBC Urine WBC Ur Epithelial Cells Urine Bacteria Hyaline Casts Urine Mucus RPR Titer 01/20/17 01/20/17 01/20/17 07:00 07:00 11:53 WBC RBC Hgb Hct MCV MCH MCHC RDW Plt Count MPV Sodium 140 Potassium 3.9 Chloride 107 Carbon Dioxide 30 Anion Gap 3 L BUN 10 D Creatinine 0.8 Creat Clearance w eGFR > 60 POC Glucometer 227 Random Glucose 119 H Calcium 7.8 L Total Bilirubin 0.3 D AST 14 L D ALT 32 D Alkaline Phosphatase 88 Total Protein 6.1 L Albumin 2.8 L Urine Color Urine Appearance Urine pH Ur Specific [place] Urine Protein Urine Glucose (UA) Urine Ketones Urine Blood Urine Nitrite Urine Bilirubin Urine Urobilinogen Ur Leukocyte Esterase Urine RBC Urine WBC Ur Epithelial Cells Urine Bacteria Hyaline Casts Urine Mucus RPR Titer Nonreactive 01/20/17 01/20/17 01/21/17 16:33 21:52 08:21 WBC RBC Hgb Hct MCV MCH MCHC RDW Plt Count MPV Sodium Potassium Chloride Carbon Dioxide Anion Gap BUN Creatinine Creat Clearance w eGFR POC Glucometer 162 204 143 Random Glucose Calcium Total Bilirubin AST ALT Alkaline Phosphatase Total Protein Albumin Urine Color Urine Appearance Urine pH Ur Specific [place] Urine Protein Urine Glucose (UA) Urine Ketones Urine Blood Urine Nitrite Urine Bilirubin Urine Urobilinogen Ur Leukocyte Esterase Urine RBC Urine WBC Ur Epithelial Cells Urine Bacteria Hyaline Casts Urine Mucus RPR Titer aaox3 ambulating no acute distress Assessment: 01/21/17 09:52 withdrawals sx Plan: continue detox increase fluids
[2017-01-21] MEDS: PRENATAL VITAMINS W/ FOLIC ACID TABLET (FP) PO SCH (10:27)
[2017-01-21] MEDS: PANTOPRAZOLE 40 MG TABLET (FP) PO SCH (10:27)
[2017-01-21] MEDS ORDERED: INSULIN (NOVOLOG) ASPART 100 UNITS/ML 10ML VIAL ONE ×3 (11:52→21:34)
[2017-01-21] MEDS ORDERED: cloNIDine HCL 0.1 MG TABLET PO ONE (14:26)
[2017-01-21] MEDS: chlordiazePOXIDE 5 MG CAPSULE PO SCH ×2 (17:57→22:34)
[2017-01-21] MEDS: THIAMINE HCL 100 MG TABLET (FP) PO SCH (22:34)
[2017-01-21] MEDS: INSULIN DETEMIR 100 UNITS/ML MDV SQ SCH (22:35)
[2017-01-22] MEDS: chlordiazePOXIDE 5 MG CAPSULE PO SCH ×2 (06:38→10:56)
[2017-01-22] MEDS: INSULIN (NOVOLOG) ASPART 100 UNITS/ML 10ML VIAL SQ SCH ×4 (06:38→21:22)
[2017-01-22] MEDS: metFORMIN HCL 500 MG TABLET (FP) PO SCH ×2 (08:00→18:39)
--- NOTE | 2017-01-22 09:38 | PN ---
BHS Progress Note (SOAP) Subjective: irritable Objective: 01/22/17 09:33 Vital Signs Temperature 97.0 F L 01/22/17 06:26 Pulse Rate 78 01/22/17 06:26 Respiratory Rate 18 01/22/17 06:26 Blood Pressure 118/78 01/22/17 06:26 O2 Sat by Pulse Oximetry (%) aaox3 ambulating no acute distress Assessment: 01/22/17 09:35 withdrawal sx Plan: continue detox increase fluids d/c in am
[2017-01-22] MEDS: PANTOPRAZOLE 40 MG TABLET (FP) PO SCH (10:56)
[2017-01-22] MEDS: PRENATAL VITAMINS W/ FOLIC ACID TABLET (FP) PO SCH (10:56)
[2017-01-22] MEDS ORDERED: INSULIN (NOVOLOG) ASPART 100 UNITS/ML 10ML VIAL ONE ×2 (11:32→18:26)
[2017-01-22] MEDS: chlordiazePOXIDE HCL 10 MG CAPSULE PO SCH ×2 (18:43→22:40)
[2017-01-22] MEDS: INSULIN DETEMIR 100 UNITS/ML MDV SQ SCH (21:21)
[2017-01-22] MEDS: THIAMINE HCL 100 MG TABLET (FP) PO SCH (21:23)
[2017-01-23 07:12] VITALS: BP 149/94; PULSE 76; TEMP 97.3
[2017-01-23] MEDS: chlordiazePOXIDE HCL 10 MG CAPSULE PO SCH (07:16)
[2017-01-23] MEDS: INSULIN (NOVOLOG) ASPART 100 UNITS/ML 10ML VIAL SQ SCH (07:16)
[2017-01-23] MEDS: metFORMIN HCL 500 MG TABLET (FP) PO SCH (08:24)
--- NOTE | 2017-01-23 09:03 | DS ---
[facility] Detox Discharge Summary Admission Date: 01/19/17 Discharge Date: 01/23/17 - History Present History: Alcohol Dependence, Cannabis Dependence, Cocaine Dependence Additional Comments: Detox completed. Patient is alert and oriented x 3. Stable and he is in no distress. Encouraged to follow up with PMD at [facility] for medical management. Pertinent Past History: DM type 2, GERD, Nicotine Dependence, Eczema, Tinea pedis - Physical Exam Results Vital Signs: Vital Signs Temperature 97.3 F L 01/23/17 06:00 Pulse Rate 76 01/23/17 06:00 Respiratory Rate 18 01/23/17 06:00 Blood Pressure 149/94 01/23/17 06:00 O2 Sat by Pulse Oximetry (%) Laboratory Last Values WBC 5.3 K/mm3 (4.0-10.0) 01/20/17 07:00 RBC 5.02 M/mm3 (4.00-5.60) 01/20/17 07:00 Hgb 11.2 GM/dL (11.7-16.9) L 01/20/17 07:00 Hct 36.5 % (35.4-49) 01/20/17 07:00 MCV 72.7 fl (80-96) L 01/20/17 07:00 MCH 22.3 pg (25.7-33.7) L 01/20/17 07:00 MCHC 30.7 g/dl (32.0-35.9) L 01/20/17 07:00 RDW 16.9 % (11.9-15.9) H 01/20/17 07:00 Plt Count 177 K/MM3 (134-434) 01/20/17 07:00 MPV 9.5 fl (7.5-11.1) 01/20/17 07:00 Sodium 140 mmol/L (136-145) 01/20/17 07:00 Potassium 3.9 mmol/L (3.5-5.1) 01/20/17 07:00 Chloride 107 mmol/L (98-107) 01/20/17 07:00 Carbon Dioxide 30 mmol/L (21-32) 01/20/17 07:00 Anion Gap 3 (8-16) L 01/20/17 07:00 BUN 10 mg/dL (7-18) D 01/20/17 07:00 Creatinine 0.8 mg/dL (0.7-1.3) 01/20/17 07:00 Creat Clearance w eGFR > 60 (>60) 01/20/17 07:00 POC Glucometer 93 UNITS (()) 01/23/17 06:19 Random Glucose 119 mg/dL (74-106) H 01/20/17 07:00 Calcium 7.8 mg/dL (8.5-10.1) L 01/20/17 07:00 Total Bilirubin 0.3 mg/dL (0.2-1.0) D 01/20/17 07:00 AST 14 U/L (15-37) L D 01/20/17 07:00 ALT 32 U/L (12-78) D 01/20/17 07:00 Alkaline Phosphatase 88 U/L (45-117) 01/20/17 07:00 Total Protein 6.1 g/dl (6.4-8.2) L 01/20/17 07:00 Albumin 2.8 g/dl (3.4-5.0) L 01/20/17 07:00 Urine Color Ltyellow 01/19/17 17:53 Urine Appearance Slcloudy 01/19/17 17:53 Urine pH 5.0 (5.0-8.0) 01/19/17 17:53 Ur Specific [place] 1.020 (1.005-1.025) 01/19/17 17:53 Urine Protein 2+ (NEGATIVE) H 01/19/17 17:53 Urine Glucose (UA) 3+ (NEGATIVE) H 01/19/17 17:53 Urine Ketones Negative (NEGATIVE) 01/19/17 17:53 Urine Blood 1+ (NEGATIVE) H 01/19/17 17:53 Urine Nitrite Negative (NEGATIVE) 01/19/17 17:53 Urine Bilirubin Negative (NEGATIVE) 01/19/17 17:53 Urine Urobilinogen Negative mg/dL (0.2-1.0) 01/19/17 17:53 Ur Leukocyte Esterase Negative (NEGATIVE) 01/19/17 17:53 Urine RBC 8 /hpf (0-3) 01/19/17 17:53 Urine WBC 11 /hpf (3-5) 01/19/17 17:53 Ur Epithelial Cells Rare /hpf (FEW) 01/19/17 17:53 Urine Bacteria Rare /hpf (NONE SEEN) 01/19/17 17:53 Hyaline Casts 1 /lpf 01/19/17 17:53 Urine Mucus Rare 01/19/17 17:53 RPR Titer Nonreactive (NONREACTIVE) 01/20/17 07:00 Labs noted. Random glucose 119mg/dl, hx of DM on Metformin. Pertinent Admission Physical Exam Findings: Withdrawal sx - Treatment Hospital Course: Detox Protocol Followed, Detoxed Safely, Responded well, Discharged Condition Good Patient has Accepted a Rehab Referral to: [facility] - Medication Discharge Medications: Ambulatory Orders Metformin HCl [Glucophage] 1,000 mg PO BIDAC #0 tablet 04/19/11 Omeprazole [Prilosec (RX)] 40 mg PO DAILY #30 capsule. 09/29/14 Insulin Glargine,Hum.rec.anlog [Lantus Solostar PEN -] 20 units SQ HS #1 ins 04/30 Metformin HCl [Glucophage -] 1,000 mg PO BID@0700,1630 #120 mg 11/12/16 - Diagnosis (1) Alcohol dependence with uncomplicated withdrawal Current Visit: Yes Status: Acute (2) Cocaine dependence Current Visit: Yes Status: Acute (3) DM Diabetes mellitus type 2 Current Visit: Yes Status: Chronic (4) GERD (gastroesophageal reflux disease) Current Visit: Yes Status: Chronic Qualifiers: Esophagitis presence: without esophagitis Qualified Code(s): K21.9 - Gastro-esophageal reflux disease without esophagitis; K21.9 - Gastro- esophageal reflux disease without esophagitis; K21.9 - Gastro-esophageal reflux disease without esophagitis (5) Nicotine dependence Current Visit: Yes Status: Acute Qualifiers: Nicotine product type: cigarettes Substance use status: uncomplicated Qualified Code(s): F17.210 - Nicotine dependence, cigarettes, uncomplicated; F17.210 - Nicotine dependence, cigarettes, uncomplicated (6) Tinea pedis Current Visit: No Status: Acute (7) Cannabis dependence Current Visit: Yes Status: Chronic (8) Eczema Current Visit: No Status: Chronic Qualifiers: Eczema type: flexural Qualified Code(s): L20.82 - Flexural eczema; L20.82 - Flexural eczema - AMA Did Patient Leave Against Medical Advice: No
== END 2017-01-23 09:20 | disposition home or self-care (01) | DRG 774 ==
LOC: YASAS 11:02 → Y6N 15:21
PROVIDERS: ADMIT Internal Medicine; ATTEND Internal Medicine
PROC: HZ2ZZZZ Detoxification Services for Substance Abuse Treatment (ICD-10-PCS; principal; 2017-01-19)
DX: F10.230 Alcohol dependence with withdrawal, uncomplicated (principal); F14.20 Cocaine dependence, uncomplicated; F12.20 Cannabis dependence, uncomplicated; F17.210 Nicotine dependence, cigarettes, uncomplicated; E11.9 Type 2 diabetes mellitus without complications; K21.9 Gastro-esophageal reflux disease without esophagitis; B35.3 Tinea pedis; L20.82 Flexural eczema
CPT/HCPCS: 36415; 80053; 81003; 81015; 85027; 86593; 93005; 93010

== ENCOUNTER 2017-04-11 17:44 | Inpatient (IN) | payer OTHER ==
[2017-04-11 18:47] VITALS: BMI 28.4
--- NOTE | 2017-04-11 20:51 | HP ---
CIWA Score - CIWA Score Nausea/Vomitin-Mild Nausea/No Vomiting Muscle Tremors: 4-Moderate,w/Arms Extend Anxiety: 4-Mod. Anxious/Guarded Agitation: 4-Moderately Restless Paroxysmal Sweats: 1-Minimal Palms Moist Orientation: 0-Oriented Tacttile Disturbances: 2-Mild Itch/Numbness/Burn Auditory Disturbances: 0-None Visual Disturbances: 0-None Headache: 2-Mild CIWA-Ar Total Score: 18 Admission ROS BHS - HPI Chief Complaint: C/O WITHDRAWAL SX'S. SEEKING DETOX TXMENT Allergies/Adverse Reactions: Allergies Allergy/AdvReac Type Severity Reaction Status Date / Time No Known Allergies Allergy Verified 04/11/17 19:32 History of Present Illness: 51 Y.O. MALE WITH ALCOHOLISM SEEKING DETOX TXMENT. CLIENT IS KNOWN TO THIS DETOX. LAST HERE IN 2016. HE IS SELF REFERRED. DENIES ANY SIGNIFICANT PERIOD CLEAN TIME. Exam Limitations: No Limitations - Ebola screening Have you traveled outside of the country in the last 21 days: No Have you had contact with anyone from an Ebola affected area: No Have you been sick,other than usual withdrawal symptoms: No Do you have a fever: No - Review of Systems Constitutional: Chills, Loss of Appetite, Night Sweats, Changes in sleep EENT: reports: Dental Problems Respiratory: reports: No Symptoms reported Cardiac: reports: No Symptoms Reported GI: reports: Nausea, Poor Appetite, Poor Fluid Intake : reports: No Symptoms Reported Musculoskeletal: reports: No Symptoms Reported Integumentary: reports: Flushing, Sweating Neuro: reports: No Symptoms reported Endocrine: reports: Other (HX/O DM) Hematology: reports: No Symptoms Reported Psychiatric: reports: Anxious, Depressed Other Systems: Reviewed and Negative Patient History - Patient Medical History Hx Anemia: No Hx Asthma: No Hx Chronic Obstructive Pulmonary Disease (COPD): No Hx Cancer: No Hx Cardiac Disorders: No Hx Congestive Heart Failure: No Hx Hypertension: No Hx Hypercholesterolemia: No Hx Pacemaker: No HX Cerebrovascular Accident: No Hx Seizures: No Hx Dementia: No Hx Diabetes: Yes Hx Gastrointestinal Disorders: Yes (GERD) Hx Liver Disease: No Hx Genitourinary Disorders: No Hx Sexually Transmitted Disorders: No Hx Renal Disease (ESRD): No Hx Thyroid Disease: No Hx Human Immunodeficiency Virus (HIV): No Hx Hepatitis C: No Hx Depression: Yes Hx Suicide Attempt: No Hx Bipolar Disorder: No Hx Schizophrenia: No Other Medical History: ECZEMA - Patient Surgical History Past Surgical History: No Hx Neurologic Surgery: No Hx Cataract Extraction: No Hx Cardiac Surgery: No Hx Lung Surgery: No Hx Breast Surgery: No Hx Breast Biopsy: No Hx Abdominal Surgery: No Hx Appendectomy: No Hx Cholecystectomy: No Hx Genitourinary Surgery: No Hx Section: No Hx Orthopedic Surgery: No Other Surgical History: right inguinal hernia repair in 2007 Anesthesia Reaction: No - PPD History Previous Implant?: Yes Documented Results: Negative w/proof Implanted On Prior [facility] Admission?: Yes Date: 11/11/16 Results: 0mm PPD to be Administered?: No - Smoking Cessation Smoking history: Current every day smoker Have you smoked in the past 12 months: Yes Aproximately how many cigarettes per day: 5 Cigars Per Day: 0 Hx Chewing Tobacco Use: No Initiated information on smoking cessation: Yes 'Breaking Loose' booklet given: 04/11/17 - Substance & Tx. History Hx Alcohol Use: Yes Hx Substance Use: Yes Substance Use Type: Alcohol, Cocaine Hx Substance Use Treatment: Yes ([facility]) - Substances Abused Alcohol Route: Oral Frequency: Daily Amount used: Vodka 2pints, Beer 40 oz Age of first use: 15 Date of Last Use: 04/11/17 Cocaine Route: Inhalation Frequency: 1-2 times per week Amount used: 3 Gm Age of first use: 19 Date of Last Use: 04/09/17 Family Disease History - Family Disease History Family Disease History: Diabetes: Grandparent Admission Physical Exam S - Vital Signs Vital Signs: Vital Signs - 24 hr 04/11/17 18:43 Temperature 95.9 F L Pulse Rate 98 H Respiratory 18 Rate Blood Pressure 154/94 - Physical General Appearance: Yes: Appropriately Dressed, Mild Distress, Tremorous HEENTM: Yes: EOMI, Normocephalic, Normal Voice, TC, Pharynx Normal Respiratory: Yes: Chest Non-Tender, Lungs Clear, Normal Breath Sounds, No Respiratory Distress, No Accessory Muscle Use Neck: Yes: No masses,lesions,Nodules, Supple, Trachea in good position Breast: Yes: Breast Exam Deferred Cardiology: Yes: Regular Rhythm, S1, S2, Tachycardia Abdominal: Yes: Normal Bowel Sounds, Non Tender, Soft, Protuberent Genitourinary: Yes: Within Normal Limits Back: Yes: Normal Inspection Musculoskeletal: Yes: full range of Motion, Gait Steady Extremities: Yes: Normal Capillary Refill, Normal Range of Motion, Non-Tender, Tremors Neurological: Yes: administration specialist II-XII NML intact, Fully Oriented, Alert, Motor Strength 5/5 Integumentary: Yes: Other (ECZEMA PATCH TO ARMS) Lymphatic: Yes: Within Normal Limits - Diagnostic (1) Alcohol dependence with uncomplicated withdrawal Current Visit: No Status: Chronic (2) Cocaine dependence Current Visit: No Status: Chronic (3) Nicotine dependence Current Visit: No Status: Chronic Qualifiers: Nicotine product type: cigarettes Substance use status: uncomplicated Qualified Code(s): F17.210 - Nicotine dependence, cigarettes, uncomplicated Cleared for Admission [facility] - Detox or Rehab [facility] Level of Care: Medically Managed Detox Regimen/Protocol: Librium [facility] Breath Alcohol Content Breath Alcohol Content: 0.043 Urine Drug Screen - Results Drug Screen Negative: No Urine Drug Screen Results: GUERRERO-Cocaine
[2017-04-11] MEDS ORDERED: MAGNESIUM HYDROX 2400MG/30ML ORAL SUSPENSION 30 ML CUP PO PRN (20:52)
[2017-04-11] MEDS ORDERED: MAG HYDROX/AL HYDROX/SIMETH 30 ML UNIT-DOSE CUP PO PRN (20:52)
[2017-04-11] MEDS ORDERED: MAGNESIUM CITRATE 300 ML BOTTLE PO PRN (20:52)
[2017-04-11] MEDS ORDERED: ACETAMINOPHEN 325 MG TABLET (FP) PO PRN (20:52)
[2017-04-11] MEDS ORDERED: guaiFENesin/D-METHORPHAN HB 10 ML UNIT-DOSE CUPS PO PRN (20:52)
[2017-04-11] MEDS ORDERED: IBUPROFEN 400 MG TABLET (FP) PO PRN (20:52)
[2017-04-11] MEDS ORDERED: hydrOXYzine PAMOATE 50 MG CAPSULE (FP) PO PRN (20:52)
[2017-04-11] MEDS ORDERED: P-EPHED 60MG/TRIPROLIDI 2.5MG TABLET PO PRN (20:52)
[2017-04-11] MEDS ORDERED: chlordiazePOXIDE HCL 25 MG CAPSULE PO PRN (20:52)
[2017-04-11] MEDS ORDERED: LOPERAMIDE HCL 2 MG CAPSULE PO PRN (20:52)
[2017-04-11] MEDS ORDERED: NICOTINE POLACRILEX 2 MG GUM BUC PRN (20:52)
[2017-04-11] MEDS ORDERED: MENTHOL/PHENOL 1 EACH UD MM PRN (20:52)
[2017-04-11] MEDS: chlordiazePOXIDE HCL 25 MG CAPSULE PO SCH (23:02)
[2017-04-11] MEDS: THIAMINE HCL 100 MG TABLET (FP) PO SCH (23:02)
[2017-04-11] MEDS: INSULIN DETEMIR 100 UNITS/ML MDV SQ SCH (23:07)
[2017-04-12 03:53] LABS: URINE APPEARANCE CLEAR; URINE BILIRUBIN NEGATIVE (NEGATIVE); URINE BLOOD NEGATIVE (NEGATIVE); URINE COLOR LTYELLOW; URINE GLUCOSE (UA) 3+ (NEGATIVE); URINE KETONE NEGATIVE (NEGATIVE); URINE LEUK ESTERASE NEGATIVE (NEGATIVE); URINE NITRITE NEGATIVE (NEGATIVE); URINE UROBILINOGEN NEGATIVE mg/dL (0.2-1.0)
[2017-04-12 04:12] LABS: URINE PROTEIN 2+ (NEGATIVE)
[2017-04-12 04:24] LABS: EPI CELLS RARE /HPF (FEW); URINE BACTERIA RARE /hpf (NONE SEEN); URINE MUCUS RARE
[2017-04-12] MEDS: chlordiazePOXIDE HCL 25 MG CAPSULE PO SCH ×3 (07:11→19:03)
[2017-04-12] MEDS: metFORMIN HCL 500 MG TABLET (FP) PO SCH ×2 (09:30→18:49)
[2017-04-12 10:07] LABS: HEMATOCRIT 37.3 % (35.4-49); HEMOGLOBIN 11.4 GM/dL (11.7-16.9); MCHC 30.5 g/dl (32.0-35.9); MEAN CELL VOLUME 72.2 fl (80-96); MEAN PLT VOLUME 9.8 fl (7.5-11.1); PLATELET COUNT 185 K/MM3 (134-434); RBC 5.16 M/mm3 (4.00-5.60); RDW 15.5 % (11.9-15.9); WHITE BLOOD COUNT 6.9 K/mm3 (4.0-10.0)
[2017-04-12 10:18] LABS: CHLORIDE 103 mmol/L (98-107); POTASSIUM 4.1 mmol/L (3.5-5.1); SODIUM 137 mmol/L (136-145)
[2017-04-12 10:26] LABS: ALBUMIN 2.8 g/dl (3.4-5.0); ALK PHOS 110 U/L (45-117); ANION GAP 8 (8-16); BILIRUBIN,TOTAL 0.4 mg/dL (0.2-1.0); BLOOD UREA NITROGEN 16 mg/dL (7-18); CALCIUM 7.9 mg/dL (8.5-10.1); CO2 26 mmol/L (21-32); GLUCOSE,RANDOM 285 mg/dL (74-106); SGOT/AST 17 U/L (15-37); SGPT/ALT 43 U/L (12-78); TOT PROT 6.6 g/dl (6.4-8.2)
[2017-04-12] MEDS: NICOTINE 14 MG/24 HOURS TOPICAL PATCH TD SCH (11:14)
[2017-04-12] MEDS: PRENATAL VITAMINS W/ FOLIC ACID TABLET (FP) PO SCH (11:19)
[2017-04-12] MEDS: PANTOPRAZOLE 40 MG TABLET (FP) PO SCH (11:19)
--- NOTE | 2017-04-12 11:25 | EKG ---
Test Reason : Blood Pressure : / mmHG Vent. Rate : 073 BPM Atrial Rate : 073 BPM P-R Int : 164 ms QRS Dur : 092 ms QT Int : 408 ms P-R-T Axes : 062 025 049 degrees QTc Int : 449 ms SINUS RHYTHM WITH PREMATURE ATRIAL COMPLEXES OTHERWISE NORMAL ECG WHEN COMPARED WITH ECG OF 11-APR-2017 22:35, NONSPECIFIC T WAVE ABNORMALITY NO LONGER EVIDENT IN INFERIOR LEADS BASELINE ARTIFACT Confirmed by ISAI KRAFT, MUNA ([id number]) on 04/12/2017 11:24:42 AM Referred By: Confirmed By:MUNA ALEX MD
--- NOTE | 2017-04-12 11:26 | EKG ---
Test Reason : Blood Pressure : / mmHG Vent. Rate : 095 BPM Atrial Rate : 095 BPM P-R Int : 142 ms QRS Dur : 090 ms QT Int : 362 ms P-R-T Axes : 063 050 027 degrees QTc Int : 454 ms SINUS RHYTHM WITH PREMATURE ATRIAL COMPLEXES WITH ABERRANT CONDUCTION NONSPECIFIC T WAVE ABNORMALITY ABNORMAL ECG WHEN COMPARED WITH ECG OF 19-JAN-2017 16:30, ABERRANT CONDUCTION IS NOW PRESENT NONSPECIFIC T WAVE ABNORMALITY NOW EVIDENT IN INFERIOR LEADS CLINICAL CORRELATION IS RECOMMENDED Confirmed by ISAI KRAFT, MUNA ([id number]) on 04/12/2017 11:26:36 AM Referred By: Confirmed By:MUNA ALEX MD
[2017-04-12] MEDS ORDERED: FLU VACCINE QUAD 60 MCG/0.5 ML (MDV 17-18) IM ONE (13:00)
--- NOTE | 2017-04-12 13:59 | PN ---
[facility] CIWA - CIWA Score Nausea/Vomitin Muscle Tremors: 2 Anxiety: 2 Agitation: 3 Paroxysmal Sweats: 3 Orientation: 0-Oriented Tacttile Disturbances: 0-None Auditory Disturbances: 0-None Visual Disturbances: 0-None Headache: 0-None Present CIWA-Ar Total Score: 15 S Progress Note (SOAP) Subjective: Reports vomiting, sweats, withdrawal sx Objective: 04/12/17 13:58 Vital Signs Temperature 97.9 F 04/12/17 13:41 Pulse Rate 87 04/12/17 13:41 Respiratory Rate 20 04/12/17 13:41 Blood Pressure 148/93 04/12/17 13:41 O2 Sat by Pulse Oximetry (%) Laboratory Last Values WBC 6.9 K/mm3 (4.0-10.0) D 04/12/17 08:00 RBC 5.16 M/mm3 (4.00-5.60) 04/12/17 08:00 Hgb 11.4 GM/dL (11.7-16.9) L 04/12/17 08:00 Hct 37.3 % (35.4-49) 04/12/17 08:00 MCV 72.2 fl (80-96) L 04/12/17 08:00 MCH 22.0 pg (25.7-33.7) L 04/12/17 08:00 MCHC 30.5 g/dl (32.0-35.9) L 04/12/17 08:00 RDW 15.5 % (11.9-15.9) 04/12/17 08:00 Plt Count 185 K/MM3 (134-434) 04/12/17 08:00 MPV 9.8 fl (7.5-11.1) 04/12/17 08:00 Sodium 137 mmol/L (136-145) 04/12/17 08:00 Potassium 4.1 mmol/L (3.5-5.1) 04/12/17 08:00 Chloride 103 mmol/L (98-107) 04/12/17 08:00 Carbon Dioxide 26 mmol/L (21-32) 04/12/17 08:00 Anion Gap 8 (8-16) 04/12/17 08:00 BUN 16 mg/dL (7-18) D 04/12/17 08:00 Creatinine 1.0 mg/dL (0.7-1.3) D 04/12/17 08:00 Creat Clearance w eGFR > 60 (>60) 04/12/17 08:00 POC Glucometer 258 UNITS (80-120) 04/12/17 07:58 Random Glucose 285 mg/dL (74-106) H D 04/12/17 08:00 Calcium 7.9 mg/dL (8.5-10.1) L 04/12/17 08:00 Total Bilirubin 0.4 mg/dL (0.2-1.0) D 04/12/17 08:00 AST 17 U/L (15-37) D 04/12/17 08:00 ALT 43 U/L (12-78) D 04/12/17 08:00 Alkaline Phosphatase 110 U/L (45-117) D 04/12/17 08:00 Total Protein 6.6 g/dl (6.4-8.2) 04/12/17 08:00 Albumin 2.8 g/dl (3.4-5.0) L 04/12/17 08:00 Urine Color Ltyellow 04/11/17 23:24 Urine Appearance Clear 04/11/17 23:24 Urine pH 5.0 (5.0-8.0) 04/11/17 23:24 Ur Specific [place] 1.026 (1.001-1.035) 04/11/17 23:24 Urine Protein 2+ (NEGATIVE) H 04/11/17 23:24 Urine Glucose (UA) 3+ (NEGATIVE) H 04/11/17 23:24 Urine Ketones Negative (NEGATIVE) 04/11/17 23:24 Urine Blood Negative (NEGATIVE) 04/11/17 23:24 Urine Nitrite Negative (NEGATIVE) 04/11/17 23:24 Urine Bilirubin Negative (NEGATIVE) 04/11/17 23:24 Urine Urobilinogen Negative mg/dL (0.2-1.0) 04/11/17 23:24 Ur Leukocyte Esterase Negative (NEGATIVE) 04/11/17 23:24 Urine WBC (Auto) 1 /hpf (3-5) 04/11/17 23:24 Urine RBC (Auto) <1 /hpf (0-3) 04/11/17 23:24 Ur Epithelial Cells Rare /HPF (FEW) 04/11/17 23:24 Urine Bacteria Rare /hpf (NONE SEEN) 04/11/17 23:24 Urine Mucus Rare 04/11/17 23:24 RPR Titer Nonreactive (NONREACTIVE) 04/12/17 08:00 HIV 1&2 Antibody Screen Negative 04/12/17 08:30 HIV P24 Antigen Negative 04/12/17 08:30 Labs noted Assessment: 04/12/17 13:59 withdrawal symptoms Plan: Continue detox
--- NOTE | 2017-04-12 16:07 | CONSULT ---
[facility] Psychiatric Consult - Data Date of interview: 04/12/17 Admission source: [facility] Identifying data: Another admission to [facility] for this 51 y/o AA male seeking detox treatment on for alcohol and cocaine (crack) dependence.Patient is without children,homeless,unemployed and supported on SSI benefits. Substance Abuse History: Confirmed by patient in this interview.Details in current [facility] report : Smoking history: Current every day smoker. Have you smoked in the past 12 months: Yes. Aproximately how many cigarettes per day: 5. Cigars Per Day: 0. Hx Chewing Tobacco Use: No. Initiated information on smoking cessation: Yes. 'Breaking Loose' booklet given: 04/11/17. - Substance & Tx. History. Hx Alcohol Use: Yes. Hx Substance Use: Yes. Substance Use Type : Alcohol, Cocaine. Hx Substance Use Treatment: Yes ([facility]). - Substances Abused. Alcohol. Route: Oral. Frequency: Daily. Amount used: Vodka 2pints , Beer 40 oz. Age of first use: 15. Date of Last Use: 04/11/17. Cocaine. Route: Inhalation. Frequency: 1-2 times per week. Amount used: 3 Gm. Age of first use: 19. Date of Last Use: 04/09/17 Medical History: GERD,eczema,diabetes mellitus and a history of right inguinal herniorraphy (2007). Psychiatric History: Patient reports past psychiatric hospitalizations at [facility] in [facility] (2005 and 2013).Diagnosed with Schizoaffective Disorder.No recent history of psychiatric OPD care.Off psychotropic medications for months.Mr Zazueta states that he used to be prescribed seroquel,risperdal and abilify." I got rid of these things because I did not like the way they made me feel.Too many bad effects." Patient denies history of suicide attempts. Physical/Sexual Abuse/Trauma History: No reported history of abuse. Additional Comment: Urine Drug Screen Results: GUERRERO-Cocaine.Noted. Mental Status Exam - Mental Status Exam Alert and Oriented to: Time, Place, Person Cognitive Function: Good Patient Appearance: Well Groomed Mood: Withdrawn, Anxious, Irritable Affect: Appropriate, Normal Range Patient Behavior: Fatigued, Cooperative (superficially cooperative) Speech Pattern: Clear, Appropriate Voice Loudness: Normal Thought Process: Goal Oriented Thought Disorder: Not Present Hallucinations: Denies Suicidal Ideation: Denies Homicidal Ideation: Denies Insight/Judgement: Poor Sleep: Fair Appetite: Good Muscle strength/Tone: Normal Gait/Station: Normal Psychiatric Findings - Problem List (Adrian 1, 2,3) (1) Alcohol dependence with uncomplicated withdrawal Current Visit: Yes Status: Acute (2) Cocaine dependence Current Visit: Yes Status: Acute (3) Nicotine dependence Current Visit: Yes Status: Acute Qualifiers: Nicotine product type: cigarettes Substance use status: uncomplicated Qualified Code(s): F17.210 - Nicotine dependence, cigarettes, uncomplicated (4) Drug-induced mood disorder Current Visit: Yes Status: Acute - Initial Treatment Plan Initial Treatment Plan: Psychoeducation and support provided.Detoxification in effect.Mr Zazueta declines resumption of mood stabilizers or atypical agents ( asymptomatic at time of this examination).Made aware of benefits of psychotropic medications and risks inherent to refusal of maintenance treatment.Observation.
[2017-04-13] MEDS: chlordiazePOXIDE HCL 25 MG CAPSULE PO SCH ×4 (00:09→16:57)
[2017-04-13] MEDS: THIAMINE HCL 100 MG TABLET (FP) PO SCH ×2 (00:09→22:03)
[2017-04-13] MEDS: INSULIN DETEMIR 100 UNITS/ML MDV SQ SCH ×2 (00:10→22:07)
[2017-04-13] MEDS: metFORMIN HCL 500 MG TABLET (FP) PO SCH ×2 (06:21→16:55)
[2017-04-13] MEDS ORDERED: INSULIN (NOVOLOG) ASPART 100 UNITS/ML 10ML VIAL ONE ×2 (06:48→16:54)
[2017-04-13] MEDS: INSULIN SLIDING SCALE (NOVOLOG) 1 VIAL SQ SCH ×4 (07:12→22:08)
[2017-04-13] MEDS: PRENATAL VITAMINS W/ FOLIC ACID TABLET (FP) PO SCH (10:57)
[2017-04-13] MEDS: PANTOPRAZOLE 40 MG TABLET (FP) PO SCH (10:57)
[2017-04-13] MEDS: NICOTINE 14 MG/24 HOURS TOPICAL PATCH TD SCH (11:02)
[2017-04-13] MEDS ORDERED: FLU VACCINE QUAD 60 MCG/0.5 ML (MDV 17-18) IM ONE (12:00)
--- NOTE | 2017-04-13 14:08 | PN ---
[facility] CIWA - CIWA Score Nausea/Vomitin Muscle Tremors: 3 Anxiety: 3 Agitation: 3 Paroxysmal Sweats: 2 Orientation: 0-Oriented Tacttile Disturbances: 0-None Auditory Disturbances: 0-None Visual Disturbances: 0-None Headache: 0-None Present CIWA-Ar Total Score: 13 S Progress Note (SOAP) Subjective: nausea, night swaets, tremors Objective: 04/13/17 14:06 Vital Signs Temperature 97.7 F 04/13/17 06:00 Pulse Rate 82 04/13/17 06:00 Respiratory Rate 18 04/13/17 06:00 Blood Pressure 155/91 04/13/17 06:00 O2 Sat by Pulse Oximetry (%) Laboratory Last Values WBC 6.9 K/mm3 (4.0-10.0) D 04/12/17 08:00 RBC 5.16 M/mm3 (4.00-5.60) 04/12/17 08:00 Hgb 11.4 GM/dL (11.7-16.9) L 04/12/17 08:00 Hct 37.3 % (35.4-49) 04/12/17 08:00 MCV 72.2 fl (80-96) L 04/12/17 08:00 MCH 22.0 pg (25.7-33.7) L 04/12/17 08:00 MCHC 30.5 g/dl (32.0-35.9) L 04/12/17 08:00 RDW 15.5 % (11.9-15.9) 04/12/17 08:00 Plt Count 185 K/MM3 (134-434) 04/12/17 08:00 MPV 9.8 fl (7.5-11.1) 04/12/17 08:00 Sodium 137 mmol/L (136-145) 04/12/17 08:00 Potassium 4.1 mmol/L (3.5-5.1) 04/12/17 08:00 Chloride 103 mmol/L (98-107) 04/12/17 08:00 Carbon Dioxide 26 mmol/L (21-32) 04/12/17 08:00 Anion Gap 8 (8-16) 04/12/17 08:00 BUN 16 mg/dL (7-18) D 04/12/17 08:00 Creatinine 1.0 mg/dL (0.7-1.3) D 04/12/17 08:00 Creat Clearance w eGFR > 60 (>60) 04/12/17 08:00 POC Glucometer 130 UNITS (80-120) 04/13/17 11:01 Random Glucose 285 mg/dL (74-106) H D 04/12/17 08:00 Calcium 7.9 mg/dL (8.5-10.1) L 04/12/17 08:00 Total Bilirubin 0.4 mg/dL (0.2-1.0) D 04/12/17 08:00 AST 17 U/L (15-37) D 04/12/17 08:00 ALT 43 U/L (12-78) D 04/12/17 08:00 Alkaline Phosphatase 110 U/L (45-117) D 04/12/17 08:00 Total Protein 6.6 g/dl (6.4-8.2) 04/12/17 08:00 Albumin 2.8 g/dl (3.4-5.0) L 04/12/17 08:00 Urine Color Ltyellow 04/11/17 23:24 Urine Appearance Clear 04/11/17 23:24 Urine pH 5.0 (5.0-8.0) 04/11/17 23:24 Ur Specific [place] 1.026 (1.001-1.035) 04/11/17 23:24 Urine Protein 2+ (NEGATIVE) H 04/11/17 23:24 Urine Glucose (UA) 3+ (NEGATIVE) H 04/11/17 23:24 Urine Ketones Negative (NEGATIVE) 04/11/17 23:24 Urine Blood Negative (NEGATIVE) 04/11/17 23:24 Urine Nitrite Negative (NEGATIVE) 04/11/17 23:24 Urine Bilirubin Negative (NEGATIVE) 04/11/17 23:24 Urine Urobilinogen Negative mg/dL (0.2-1.0) 04/11/17 23:24 Ur Leukocyte Esterase Negative (NEGATIVE) 04/11/17 23:24 Urine WBC (Auto) 1 /hpf (3-5) 04/11/17 23:24 Urine RBC (Auto) <1 /hpf (0-3) 04/11/17 23:24 Ur Epithelial Cells Rare /HPF (FEW) 04/11/17 23:24 Urine Bacteria Rare /hpf (NONE SEEN) 04/11/17 23:24 Urine Mucus Rare 04/11/17 23:24 RPR Titer Nonreactive (NONREACTIVE) 04/12/17 08:00 Hepatitis C Antibody <0.1 s/co ratio (0.0-0.9) 04/12/17 08:00 HIV 1&2 Antibody Screen Negative 04/12/17 08:30 HIV P24 Antigen Negative 04/12/17 08:30 labs noted, BGM elevated Assessment: 04/13/17 14:08 withdrawal sx Plan: continue detox continue with hyperglycemic agents
[2017-04-13] MEDS: chlordiazePOXIDE 5 MG CAPSULE PO SCH (22:03)
[2017-04-14] MEDS: chlordiazePOXIDE 5 MG CAPSULE PO SCH ×3 (06:30→17:29)
[2017-04-14] MEDS: metFORMIN HCL 500 MG TABLET (FP) PO SCH ×2 (06:33→17:29)
[2017-04-14] MEDS ORDERED: INSULIN (NOVOLOG) ASPART 100 UNITS/ML 10ML VIAL ONE ×4 (06:35→22:12)
[2017-04-14] MEDS: INSULIN SLIDING SCALE (NOVOLOG) 1 VIAL SQ SCH ×4 (07:41→22:09)
[2017-04-14] MEDS: NICOTINE 14 MG/24 HOURS TOPICAL PATCH TD SCH (10:29)
[2017-04-14] MEDS: PRENATAL VITAMINS W/ FOLIC ACID TABLET (FP) PO SCH (10:29)
[2017-04-14] MEDS: PANTOPRAZOLE 40 MG TABLET (FP) PO SCH (10:29)
--- NOTE | 2017-04-14 10:32 | PN ---
S Progress Note (SOAP) Subjective: ALERT,IRRITABLE,ANXIOUS,INTERRUPTED SLEEP Objective: 04/14/17 10:30 Vital Signs Temperature 98.2 F 04/14/17 10:00 Pulse Rate 99 H 04/14/17 10:00 Respiratory Rate 20 04/14/17 10:00 Blood Pressure 148/94 04/14/17 10:00 O2 Sat by Pulse Oximetry (%) Assessment: 04/14/17 10:31 WITHDRAWAL SYMPTOM Plan: CONTINUE DETOX,DISCHARGE IN AM
[2017-04-14] MEDS: THIAMINE HCL 100 MG TABLET (FP) PO SCH (22:09)
[2017-04-14] MEDS: chlordiazePOXIDE HCL 10 MG CAPSULE PO SCH (22:10)
[2017-04-14] MEDS: INSULIN DETEMIR 100 UNITS/ML MDV SQ SCH (22:10)
[2017-04-15] MEDS: chlordiazePOXIDE HCL 10 MG CAPSULE PO SCH ×2 (06:57→11:54)
[2017-04-15] MEDS: metFORMIN HCL 500 MG TABLET (FP) PO SCH (07:57)
[2017-04-15] MEDS: INSULIN SLIDING SCALE (NOVOLOG) 1 VIAL SQ SCH ×2 (07:58→11:39)
[2017-04-15] MEDS ORDERED: INSULIN (NOVOLOG) ASPART 100 UNITS/ML 10ML VIAL ONE ×2 (08:51→11:31)
--- NOTE | 2017-04-15 09:13 | DS ---
[facility] Detox Discharge Summary Admission Date: 04/11/17 Discharge Date: 04/15/17 - History Present History: Alcohol Dependence, Cocaine Dependence Additional Comments: FOLLOW UP WITH AFTER CARE PROGRAM ARRANGEMENT Pertinent Past History: NICOTINE DEPENDENCE DIABETES MELLITUS - Physical Exam Results Vital Signs: Vital Signs Temperature 96.3 F L 04/15/17 05:49 Pulse Rate 78 04/15/17 05:49 Respiratory Rate 18 04/15/17 05:49 Blood Pressure 146/90 04/15/17 05:49 O2 Sat by Pulse Oximetry (%) - Treatment Hospital Course: Detox Protocol Followed, Detoxed Safely, Responded well, Discharged Condition Good, Rehab Referral Accepted Patient has Accepted a Rehab Referral to: [facility] - Medication Discharge Medications: Ambulatory Orders Metformin HCl [Glucophage] 1,000 mg PO BIDAC #0 tablet 04/19/11 Omeprazole [Prilosec (RX)] 40 mg PO DAILY #30 capsule. 09/29/14 Insulin Glargine,Hum.rec.anlog [Lantus Solostar PEN -] 20 units SQ HS #1 ins 04/30 Metformin HCl [Glucophage -] 1,000 mg PO BID@0700,1630 #120 mg 11/12/16 - Diagnosis (1) Alcohol dependence with uncomplicated withdrawal Current Visit: Yes Status: Acute (2) Cocaine dependence Current Visit: Yes Status: Acute (3) Nicotine dependence Current Visit: Yes Status: Acute Qualifiers: Nicotine product type: cigarettes Substance use status: uncomplicated Qualified Code(s): F17.210 - Nicotine dependence, cigarettes, uncomplicated (4) gerd Current Visit: No Status: Active (5) DM Diabetes mellitus type 2 Current Visit: No Status: Chronic - AMA Did Patient Leave Against Medical Advice: No
[2017-04-15 10:30] VITALS: BP 149/99; PULSE 102; TEMP 98.2
[2017-04-15] MEDS: PRENATAL VITAMINS W/ FOLIC ACID TABLET (FP) PO SCH (11:53)
[2017-04-15] MEDS: NICOTINE 14 MG/24 HOURS TOPICAL PATCH TD SCH (11:53)
[2017-04-15] MEDS: PANTOPRAZOLE 40 MG TABLET (FP) PO SCH (11:54)
== END 2017-04-15 12:15 | disposition home or self-care (01) | DRG 774 ==
LOC: YASAS 17:44 → Y6N 21:43
PROVIDERS: ADMIT Internal Medicine; ATTEND Internal Medicine
PROC: HZ2ZZZZ Detoxification Services for Substance Abuse Treatment (ICD-10-PCS; principal; 2017-04-11)
DX: F10.230 Alcohol dependence with withdrawal, uncomplicated (principal); F14.20 Cocaine dependence, uncomplicated; F17.210 Nicotine dependence, cigarettes, uncomplicated; K21.9 Gastro-esophageal reflux disease without esophagitis; E11.9 Type 2 diabetes mellitus without complications; L30.9 Dermatitis, unspecified; Z79.4 Long term (current) use of insulin; Z79.84 Long term (current) use of oral hypoglycemic drugs
CPT/HCPCS: 36415; 80053; 81003; 81015; 85027; 86593; 86803; 87389; 90688; 93005; 93010; G0008

== ENCOUNTER 2017-07-10 17:37 | Inpatient (IN) | payer OTHER ==
[2017-07-10 19:42] VITALS: BMI 27.9
--- NOTE | 2017-07-10 22:26 | HP ---
CIWA Score - CIWA Score Nausea/Vomitin-No Nausea/No Vomiting Muscle Tremors: 4-Moderate,w/Arms Extend Anxiety: 4-Mod. Anxious/Guarded Agitation: 4-Moderately Restless Paroxysmal Sweats: 2 Orientation: 3-Disoriented Date>2 days Tacttile Disturbances: 0-None Auditory Disturbances: 0-None Visual Disturbances: 0-None Headache: 3-Moderate CIWA-Ar Total Score: 20 Admission ROS [facility]HS - HPI Chief Complaint: " I NEED TO GET MY LIFE BACK AND STOP DRINKING AND USING DRUGS" Allergies/Adverse Reactions: Allergies Allergy/AdvReac Type Severity Reaction Status Date / Time No Known Allergies Allergy Verified 07/10/17 21:58 History of Present Illness: 51 Y.O. MALE WITH LONG HX/O ALCOHOLISM AND CRACK, COCAINE DEPENDENCE HERE FOR DETOX. CLIENT IS KNOWN TO THIS PROGRAM. LAST DC 04/2017. SELF REFERRED. LONGEST CLEAN TIME 3 YEARS. Exam Limitations: No Limitations - Ebola screening Have you traveled outside of the country in the last 21 days: No (N) Have you had contact with anyone from an Ebola affected area: No Have you been sick,other than usual withdrawal symptoms: No Do you have a fever: No - Review of Systems Constitutional: Chills, Malaise, Night Sweats, Changes in sleep EENT: reports: No Symptoms Reported Respiratory: reports: No Symptoms reported Cardiac: reports: No Symptoms Reported GI: reports: Poor Appetite, Poor Fluid Intake : reports: No Symptoms Reported Musculoskeletal: reports: Joint Pain, Muscle Pain Integumentary: reports: No Symptoms Reported, Other (ITCHING BETWEEN TOES) Neuro: reports: Headache (MUGRAINES) Endocrine: reports: Other (DM) Hematology: reports: Anemia Psychiatric: reports: other (BIPOLAR SCHIZOAFFECTIVEE) Other Systems: Reviewed and Negative Patient History - Patient Medical History Hx Anemia: No Hx Asthma: No Hx Chronic Obstructive Pulmonary Disease (COPD): No Hx Cancer: No Hx Cardiac Disorders: No Hx Congestive Heart Failure: No Hx Hypertension: No Hx Hypercholesterolemia: No Hx Pacemaker: No HX Cerebrovascular Accident: No Hx Seizures: No Hx Dementia: No Hx Diabetes: Yes (BGM 406 07/10/17 @10PM; INSULIN AND METFORMIN) Hx Gastrointestinal Disorders: No Hx Liver Disease: No Hx Genitourinary Disorders: No Hx Sexually Transmitted Disorders: No Hx Renal Disease (ESRD): No Hx Thyroid Disease: No Hx Human Immunodeficiency Virus (HIV): No Hx Hepatitis C: No Hx Depression: Yes Hx Suicide Attempt: No Hx Bipolar Disorder: Yes Hx Schizophrenia: Yes (SCHIZOAFFECTIVE) Other Medical History: NO MED MGMT - Patient Surgical History Past Surgical History: No Hx Neurologic Surgery: No Hx Cataract Extraction: No Hx Cardiac Surgery: No Hx Lung Surgery: No Hx Breast Surgery: No Hx Breast Biopsy: No Hx Abdominal Surgery: No Hx Appendectomy: No Hx Cholecystectomy: No Hx Genitourinary Surgery: No Hx Section: No Hx Orthopedic Surgery: No Other Surgical History: right inguinal hernia repair in 2007 Anesthesia Reaction: No - PPD History Previous Implant?: Yes Documented Results: Negative w/proof Implanted On Prior [facility] Admission?: Yes Date: 11/11/16 Results: 0mm PPD to be Administered?: Yes - Smoking Cessation Smoking history: Current every day smoker Have you smoked in the past 12 months: Yes Aproximately how many cigarettes per day: 2 Cigars Per Day: 0 Hx Chewing Tobacco Use: No Initiated information on smoking cessation: Yes 'Breaking Loose' booklet given: 07/10/17 - Substance & Tx. History Hx Alcohol Use: Yes Hx Substance Use: Yes Substance Use Type: Alcohol, Cocaine, Marijuana Hx Substance Use Treatment: Yes ([facility]) - Substances Abused Alcohol Route: Oral Frequency: Daily Amount used: 3 [employer] Age of first use: 15 Date of Last Use: 07/10/17 Cocaine Route: Smoking Frequency: Daily Amount used: 1 GRAM Age of first use: 19 Date of Last Use: 07/09/17 THC Route: Smoking Frequency: Daily Amount used: $20 Age of first use: 15 Date of Last Use: 07/09/17 Family Disease History - Family Disease History Family Disease History: Diabetes: Grandparent Admission Physical Exam BHS - Vital Signs Vital Signs: Vital Signs - 24 hr 07/10/17 19:41 Temperature 97.1 F L Pulse Rate 90 Respiratory 18 Rate Blood Pressure 156/95 - Physical General Appearance: Yes: Appropriately Dressed, Tremorous, Anxious HEENTM: Yes: EOMI, Normocephalic, TC, Pharynx Normal Respiratory: Yes: Chest Non-Tender, Lungs Clear, Normal Breath Sounds, No Respiratory Distress, No Accessory Muscle Use Neck: Yes: No masses,lesions,Nodules, Supple, Trachea in good position Breast: Yes: Breast Exam Deferred Cardiology: Yes: Regular Rhythm, S1, S2, Tachycardia Abdominal: Yes: Normal Bowel Sounds, Non Tender, Protuberent Genitourinary: Yes: Other (NO C/O) Back: Yes: Normal Inspection Musculoskeletal: Yes: full range of Motion, Gait Steady Extremities: Yes: Normal Range of Motion, Non-Tender, Tremors Neurological: Yes: Fully Oriented, Alert, Motor Strength 5/5 Integumentary: Yes: Normal Color, Dry, Warm, Other (C/O OF ITCHING BETWEEN TOES) Lymphatic: Yes: Within Normal Limits - Diagnostic (1) Alcohol dependence with uncomplicated withdrawal Current Visit: Yes Status: Chronic (2) Cocaine dependence Current Visit: Yes Status: Chronic (3) Nicotine dependence Current Visit: Yes Status: Chronic Qualifiers: Nicotine product type: cigarettes Substance use status: uncomplicated Qualified Code(s): F17.210 - Nicotine dependence, cigarettes, uncomplicated (4) Tinea pedis Current Visit: Yes Status: Chronic Qualifiers: Laterality: bilateral Qualified Code(s): B35.3 - Tinea pedis (5) Cannabis dependence Current Visit: Yes Status: Chronic (6) DM Diabetes mellitus type 2 Current Visit: Yes Status: Chronic Cleared for Admission [facility] - Detox or Rehab [facility] Level of Care: Medically Managed Detox Regimen/Protocol: Librium Claeared for Rehab Admission: No [facility] Breath Alcohol Content Breath Alcohol Content: 0 Urine Drug Screen - Results Drug Screen Negative: No Urine Drug Screen Results: THC-Marijuana, GUERRERO-Cocaine
[2017-07-10] MEDS ORDERED: MAGNESIUM CITRATE 300 ML BOTTLE PO PRN (22:36)
[2017-07-10] MEDS ORDERED: guaiFENesin/D-METHORPHAN HB 10 ML UNIT-DOSE CUPS PO PRN (22:36)
[2017-07-10] MEDS ORDERED: MENTHOL/PHENOL 1 EACH UD MM PRN (22:36)
[2017-07-10] MEDS ORDERED: LOPERAMIDE HCL 2 MG CAPSULE PO PRN (22:36)
[2017-07-10] MEDS ORDERED: P-EPHED 60MG/TRIPROLIDI 2.5MG TABLET PO PRN (22:36)
[2017-07-10] MEDS ORDERED: chlordiazePOXIDE HCL 25 MG CAPSULE PO PRN (22:36)
[2017-07-10] MEDS ORDERED: IBUPROFEN 400 MG TABLET (FP) PO PRN (22:36)
[2017-07-10] MEDS ORDERED: MAGNESIUM HYDROX 2400MG/30ML ORAL SUSPENSION 30 ML CUP PO PRN (22:36)
[2017-07-10] MEDS ORDERED: NICOTINE POLACRILEX 2 MG GUM BC PRN (22:36)
[2017-07-10] MEDS ORDERED: ACETAMINOPHEN 325 MG TABLET (FP) PO PRN (22:36)
[2017-07-10] MEDS ORDERED: MAG HYDROX/AL HYDROX/SIMETH 30 ML UNIT-DOSE CUP PO PRN (22:36)
[2017-07-10] MEDS ORDERED: hydrOXYzine PAMOATE 50 MG CAPSULE (FP) PO PRN (22:36)
[2017-07-10] MEDS ORDERED: TOLNAFTATE 1% CREAM 15 GM TUBE TP SCH (23:45)
[2017-07-11] MEDS: TOLNAFTATE 1% CREAM 15 GM TUBE TP SCH ×3 (00:20→22:12)
[2017-07-11] MEDS: chlordiazePOXIDE HCL 25 MG CAPSULE PO SCH ×5 (00:47→22:12)
[2017-07-11] MEDS ORDERED: INSULIN DETEMIR 100 UNITS/ML MDV SQ ONE ×2 (00:56→01:01)
[2017-07-11 01:44] LABS: URINE APPEARANCE CLEAR; URINE BILIRUBIN NEGATIVE (<2.0 mg/dL); URINE BLOOD 1+ (NEGATIVE); URINE COLOR YELLOW; URINE GLUCOSE (UA) 3+ (NEGATIVE); URINE KETONE TRACE (NEGATIVE); URINE LEUK ESTERASE NEGATIVE (NEGATIVE); URINE NITRITE NEGATIVE (NEGATIVE); URINE UROBILINOGEN NEGATIVE mg/dL (0.2-1.0)
[2017-07-11 01:45] LABS: URINE PROTEIN 3+ (NEGATIVE)
[2017-07-11 01:56] LABS: EPI CELLS RARE /HPF (FEW); URINE HYALINE CAST 54 /lpf; URINE MUCUS RARE
[2017-07-11] MEDS: metFORMIN HCL 500 MG TABLET (FP) PO SCH ×2 (08:00→17:00)
--- NOTE | 2017-07-11 09:20 | PN ---
S CIWA - CIWA Score Nausea/Vomitin Muscle Tremors: 3 Anxiety: 2 Agitation: 2 Paroxysmal Sweats: 3 Orientation: 0-Oriented Tacttile Disturbances: 1-Very Mild Itch/Numbness Auditory Disturbances: 0-None Visual Disturbances: 0-None Headache: 0-None Present CIWA-Ar Total Score: 14 S Progress Note (SOAP) Subjective: interrupted sleep,sweats, shakes Objective: 07/11/17 09:15 Vital Signs Temperature 97.7 F 07/11/17 06:00 Pulse Rate 68 07/11/17 06:00 Respiratory Rate 20 07/11/17 06:00 Blood Pressure 134/84 07/11/17 06:00 O2 Sat by Pulse Oximetry (%) Laboratory Tests 07/10/17 07/11/17 07/11/17 22:06 00:32 00:52 POC Glucometer 406 304 Urine Color Yellow Urine Appearance Clear Urine pH 5.0 Ur Specific [place] 1.024 Urine Protein 3+ H Urine Glucose (UA) 3+ H Urine Ketones Trace H Urine Blood 1+ H Urine Nitrite Negative Urine Bilirubin Negative Urine Urobilinogen Negative Ur Leukocyte Esterase Negative Urine WBC (Auto) 3 Urine RBC (Auto) 7 Ur Epithelial Cells Rare Hyaline Casts 54 Urine Mucus Rare 07/11/17 06:12 POC Glucometer 179 Urine Color Urine Appearance Urine pH Ur Specific [place] Urine Protein Urine Glucose (UA) Urine Ketones Urine Blood Urine Nitrite Urine Bilirubin Urine Urobilinogen Ur Leukocyte Esterase Urine WBC (Auto) Urine RBC (Auto) Ur Epithelial Cells Hyaline Casts Urine Mucus pt sleeping in bed ,woke up when spoken to in nad . Assessment: 07/11/17 09:16 withdrawal sx's dm t2 Plan: cont. detox increase fluids bgm monitoring insulin sliding scale as indicated
--- NOTE | 2017-07-11 10:04 | EKG ---
Test Reason : Blood Pressure : / mmHG Vent. Rate : 094 BPM Atrial Rate : 094 BPM P-R Int : 148 ms QRS Dur : 090 ms QT Int : 374 ms P-R-T Axes : 063 046 070 degrees QTc Int : 467 ms SINUS RHYTHM WITH PREMATURE ATRIAL COMPLEXES NONSPECIFIC T WAVE ABNORMALITY PROLONGED QT ABNORMAL ECG Confirmed by HEIKE TORREZ MD ([id number]) on 07/11/2017 10:03:49 AM Referred By: Confirmed By:HEIKE TORREZ MD
[2017-07-11 10:27] LABS: CHLORIDE 106 mmol/L (98-107); SODIUM 140 mmol/L (136-145)
[2017-07-11 10:34] LABS: HEMATOCRIT 35.7 % (35.4-49); HEMOGLOBIN 11.3 GM/dL (11.7-16.9); MCH 22.9 pg (25.7-33.7); MCHC 31.6 g/dl (32.0-35.9); MEAN CELL VOLUME 72.5 fl (80-96); MEAN PLT VOLUME 9.2 fl (7.5-11.1); PLATELET COUNT 238 K/MM3 (134-434); RBC 4.93 M/mm3 (4.00-5.60); RDW 16.6 % (11.9-15.9); WHITE BLOOD COUNT 5.1 K/mm3 (4.0-10.0)
[2017-07-11 10:39] LABS: ALBUMIN 2.9 g/dl (3.4-5.0); ALK PHOS 94 U/L (45-117); ANION GAP 5 (8-16); BILIRUBIN,TOTAL 0.2 mg/dL (0.2-1.0); BLOOD UREA NITROGEN 13 mg/dL (7-18); CALCIUM 8.2 mg/dL (8.5-10.1); CO2 29 mmol/L (21-32); CREATININE 0.8 mg/dL (0.7-1.3); GLUCOSE,RANDOM 143 mg/dL (74-106); SGOT/AST 11 U/L (15-37); SGPT/ALT 20 U/L (12-78); TOT PROT 6.5 g/dl (6.4-8.2)
[2017-07-11] MEDS: NICOTINE 14 MG/24 HOURS TOPICAL PATCH TD SCH (11:00)
[2017-07-11] MEDS: PRENATAL VITAMINS W/ FOLIC ACID TABLET (FP) PO SCH (11:00)
--- NOTE | 2017-07-11 14:04 | CONSULT ---
[facility] Psychiatric Consult - Data Date of interview: 07/11/17 Admission source: [facility] Identifying data: Approached at bedside for psychiatric evaluation (as requested )." Who are you ? A counselor ! I don't need psychiatrists.I need a counselor to talk about going to rehab.Good bye." Mr Zazueta dismissed this commercial loan underwriter.Refused contact with sales operations consultant.Nursing staff is made aware.
[2017-07-11] MEDS: INSULIN SLIDING SCALE (NOVOLOG) 1 VIAL SQ SCH (17:00)
[2017-07-11] MEDS ORDERED: INSULIN (NOVOLOG) ASPART 100 UNITS/ML 10ML VIAL ONE (17:35)
[2017-07-11] MEDS: INSULIN DETEMIR 100 UNITS/ML MDV SQ SCH (22:12)
[2017-07-11] MEDS: THIAMINE HCL 100 MG TABLET (FP) PO SCH (22:12)
[2017-07-12] MEDS: chlordiazePOXIDE HCL 25 MG CAPSULE PO SCH ×3 (06:47→18:18)
[2017-07-12] MEDS: metFORMIN HCL 500 MG TABLET (FP) PO SCH ×2 (06:47→18:18)
[2017-07-12] MEDS: INSULIN SLIDING SCALE (NOVOLOG) 1 VIAL SQ SCH ×2 (06:49→18:18)
[2017-07-12] MEDS: PRENATAL VITAMINS W/ FOLIC ACID TABLET (FP) PO SCH (11:09)
[2017-07-12] MEDS: NICOTINE 14 MG/24 HOURS TOPICAL PATCH TD SCH (11:09)
[2017-07-12] MEDS: TOLNAFTATE 1% CREAM 15 GM TUBE TP SCH ×2 (11:09→22:04)
--- NOTE | 2017-07-12 14:57 | PN ---
S CIWA - CIWA Score Nausea/Vomitin Muscle Tremors: 3 Anxiety: 3 Agitation: 2 Paroxysmal Sweats: 1-Minimal Palms Moist Orientation: 0-Oriented Tacttile Disturbances: 1-Very Mild Itch/Numbness Auditory Disturbances: 1-Very Mild Visual Disturbances: 0-None Headache: 2-Mild CIWA-Ar Total Score: 16 S Progress Note (SOAP) Subjective: ALERT,IRRITABLE,ANXIOUS,INTERRUPTED SLEEP,TREMOR Objective: 07/12/17 14:54 Vital Signs Temperature 98.1 F 07/12/17 11:20 Pulse Rate 87 07/12/17 11:20 Respiratory Rate 20 07/12/17 11:20 Blood Pressure 123/66 07/12/17 11:20 O2 Sat by Pulse Oximetry (%) EKG NSR OCCASIONAL PAC,PROLONG QT 358/454 NO CHEST PAIN,NO SOB,NO DIZZINESS Laboratory Last Values WBC 5.1 K/mm3 (4.0-10.0) 07/11/17 08:00 RBC 4.93 M/mm3 (4.00-5.60) 07/11/17 08:00 Hgb 11.3 GM/dL (11.7-16.9) L 07/11/17 08:00 Hct 35.7 % (35.4-49) 07/11/17 08:00 MCV 72.5 fl (80-96) L 07/11/17 08:00 MCH 22.9 pg (25.7-33.7) L 07/11/17 08:00 MCHC 31.6 g/dl (32.0-35.9) L 07/11/17 08:00 RDW 16.6 % (11.9-15.9) H 07/11/17 08:00 Plt Count 238 K/MM3 (134-434) D 07/11/17 08:00 MPV 9.2 fl (7.5-11.1) 07/11/17 08:00 Sodium 140 mmol/L (136-145) 07/11/17 08:00 Potassium 4.0 mmol/L (3.5-5.1) 07/11/17 08:00 Chloride 106 mmol/L (98-107) 07/11/17 08:00 Carbon Dioxide 29 mmol/L (21-32) 07/11/17 08:00 Anion Gap 5 (8-16) L 07/11/17 08:00 BUN 13 mg/dL (7-18) 07/11/17 08:00 Creatinine 0.8 mg/dL (0.7-1.3) 07/11/17 08:00 Creat Clearance w eGFR > 60 (>60) 07/11/17 08:00 POC Glucometer 145 UNITS (80-120) 07/12/17 06:46 Random Glucose 143 mg/dL (74-106) H D 07/11/17 08:00 Calcium 8.2 mg/dL (8.5-10.1) L 07/11/17 08:00 Total Bilirubin 0.2 mg/dL (0.2-1.0) D 07/11/17 08:00 AST 11 U/L (15-37) L D 07/11/17 08:00 ALT 20 U/L (12-78) D 07/11/17 08:00 Alkaline Phosphatase 94 U/L (45-117) 07/11/17 08:00 Total Protein 6.5 g/dl (6.4-8.2) 07/11/17 08:00 Albumin 2.9 g/dl (3.4-5.0) L 07/11/17 08:00 Urine Color Yellow 07/11/17 00:32 Urine Appearance Clear 07/11/17 00:32 Urine pH 5.0 (5.0-8.0) 07/11/17 00:32 Ur Specific [place] 1.024 (1.001-1.035) 07/11/17 00:32 Urine Protein 3+ (NEGATIVE) H 07/11/17 00:32 Urine Glucose (UA) 3+ (NEGATIVE) H 07/11/17 00:32 Urine Ketones Trace (NEGATIVE) H 07/11/17 00:32 Urine Blood 1+ (NEGATIVE) H 07/11/17 00:32 Urine Nitrite Negative (NEGATIVE) 07/11/17 00:32 Urine Bilirubin Negative (<2.0 mg/dL) 07/11/17 00:32 Urine Urobilinogen Negative mg/dL (0.2-1.0) 07/11/17 00:32 Ur Leukocyte Esterase Negative (NEGATIVE) 07/11/17 00:32 Urine WBC (Auto) 3 /hpf (3-5) 07/11/17 00:32 Urine RBC (Auto) 7 /hpf (0-3) 07/11/17 00:32 Ur Epithelial Cells Rare /HPF (FEW) 07/11/17 00:32 Hyaline Casts 54 /lpf 07/11/17 00:32 Urine Mucus Rare 07/11/17 00:32 RPR Titer Nonreactive (NONREACTIVE) 07/11/17 08:00 Assessment: 07/12/17 14:57 WITHDRAWAL SYMPTOM Plan: CONTINUE DETOX
[2017-07-12] MEDS ORDERED: INSULIN (NOVOLOG) ASPART 100 UNITS/ML 10ML VIAL ONE (21:18)
[2017-07-12] MEDS: MELATONIN 5 MG TABLETS PO PRN (22:04)
[2017-07-12] MEDS: chlordiazePOXIDE 5 MG CAPSULE PO SCH (22:04)
[2017-07-12] MEDS: THIAMINE HCL 100 MG TABLET (FP) PO SCH (22:04)
[2017-07-12] MEDS: INSULIN DETEMIR 100 UNITS/ML MDV SQ SCH (22:05)
[2017-07-13] MEDS: chlordiazePOXIDE 5 MG CAPSULE PO SCH ×3 (06:25→17:15)
[2017-07-13] MEDS: metFORMIN HCL 500 MG TABLET (FP) PO SCH ×2 (06:29→17:15)
[2017-07-13] MEDS ORDERED: INSULIN (NOVOLOG) ASPART 100 UNITS/ML 10ML VIAL ONE ×2 (06:31→17:14)
[2017-07-13] MEDS: INSULIN SLIDING SCALE (NOVOLOG) 1 VIAL SQ SCH ×2 (06:44→17:16)
[2017-07-13] MEDS: PRENATAL VITAMINS W/ FOLIC ACID TABLET (FP) PO SCH (10:22)
[2017-07-13] MEDS: NICOTINE 14 MG/24 HOURS TOPICAL PATCH TD SCH (10:23)
[2017-07-13] MEDS: TOLNAFTATE 1% CREAM 15 GM TUBE TP SCH ×2 (10:23→22:18)
--- NOTE | 2017-07-13 14:33 | PN ---
[facility] Progress Note (SOAP) Subjective: feeling better no tremor less sweat sleep better felt well rested tolerates food and fluid well Objective: 07/13/17 14:32 Vital Signs Temperature 98.1 F 07/13/17 13:12 Pulse Rate 95 H 07/13/17 13:12 Respiratory Rate 18 07/13/17 13:12 Blood Pressure 147/94 07/13/17 13:12 O2 Sat by Pulse Oximetry (%) Laboratory Last Values WBC 5.1 K/mm3 (4.0-10.0) 07/11/17 08:00 RBC 4.93 M/mm3 (4.00-5.60) 07/11/17 08:00 Hgb 11.3 GM/dL (11.7-16.9) L 07/11/17 08:00 Hct 35.7 % (35.4-49) 07/11/17 08:00 MCV 72.5 fl (80-96) L 07/11/17 08:00 MCH 22.9 pg (25.7-33.7) L 07/11/17 08:00 MCHC 31.6 g/dl (32.0-35.9) L 07/11/17 08:00 RDW 16.6 % (11.9-15.9) H 07/11/17 08:00 Plt Count 238 K/MM3 (134-434) D 07/11/17 08:00 MPV 9.2 fl (7.5-11.1) 07/11/17 08:00 Sodium 140 mmol/L (136-145) 07/11/17 08:00 Potassium 4.0 mmol/L (3.5-5.1) 07/11/17 08:00 Chloride 106 mmol/L (98-107) 07/11/17 08:00 Carbon Dioxide 29 mmol/L (21-32) 07/11/17 08:00 Anion Gap 5 (8-16) L 07/11/17 08:00 BUN 13 mg/dL (7-18) 07/11/17 08:00 Creatinine 0.8 mg/dL (0.7-1.3) 07/11/17 08:00 Creat Clearance w eGFR > 60 (>60) 07/11/17 08:00 POC Glucometer 181 UNITS (80-120) 07/13/17 06:25 Random Glucose 143 mg/dL (74-106) H D 07/11/17 08:00 Calcium 8.2 mg/dL (8.5-10.1) L 07/11/17 08:00 Total Bilirubin 0.2 mg/dL (0.2-1.0) D 07/11/17 08:00 AST 11 U/L (15-37) L D 07/11/17 08:00 ALT 20 U/L (12-78) D 07/11/17 08:00 Alkaline Phosphatase 94 U/L (45-117) 07/11/17 08:00 Total Protein 6.5 g/dl (6.4-8.2) 07/11/17 08:00 Albumin 2.9 g/dl (3.4-5.0) L 07/11/17 08:00 Urine Color Yellow 07/11/17 00:32 Urine Appearance Clear 07/11/17 00:32 Urine pH 5.0 (5.0-8.0) 07/11/17 00:32 Ur Specific [place] 1.024 (1.001-1.035) 07/11/17 00:32 Urine Protein 3+ (NEGATIVE) H 07/11/17 00:32 Urine Glucose (UA) 3+ (NEGATIVE) H 07/11/17 00:32 Urine Ketones Trace (NEGATIVE) H 07/11/17 00:32 Urine Blood 1+ (NEGATIVE) H 07/11/17 00:32 Urine Nitrite Negative (NEGATIVE) 07/11/17 00:32 Urine Bilirubin Negative (<2.0 mg/dL) 07/11/17 00:32 Urine Urobilinogen Negative mg/dL (0.2-1.0) 07/11/17 00:32 Ur Leukocyte Esterase Negative (NEGATIVE) 07/11/17 00:32 Urine WBC (Auto) 3 /hpf (3-5) 07/11/17 00:32 Urine RBC (Auto) 7 /hpf (0-3) 07/11/17 00:32 Ur Epithelial Cells Rare /HPF (FEW) 07/11/17 00:32 Hyaline Casts 54 /lpf 07/11/17 00:32 Urine Mucus Rare 07/11/17 00:32 RPR Titer Nonreactive (NONREACTIVE) 07/11/17 08:00 lab noted Assessment: 07/13/17 14:32 mild withdrawal sx 07/13/17 14:33 Plan: medically supervised detox
[2017-07-13] MEDS: chlordiazePOXIDE HCL 10 MG CAPSULE PO SCH (22:17)
[2017-07-13] MEDS: THIAMINE HCL 100 MG TABLET (FP) PO SCH (22:17)
[2017-07-13] MEDS: MELATONIN 5 MG TABLETS PO PRN (22:17)
[2017-07-13] MEDS: INSULIN DETEMIR 100 UNITS/ML MDV SQ SCH (22:18)
[2017-07-14] MEDS: chlordiazePOXIDE HCL 10 MG CAPSULE PO SCH ×2 (06:09→10:31)
[2017-07-14] MEDS: metFORMIN HCL 500 MG TABLET (FP) PO SCH (06:12)
[2017-07-14] MEDS: INSULIN SLIDING SCALE (NOVOLOG) 1 VIAL SQ SCH (06:35)
--- NOTE | 2017-07-14 08:34 | DS ---
[facility] Detox Discharge Summary Admission Date: 07/10/17 Discharge Date: 07/14/17 - History Present History: Alcohol Dependence Additional Comments: patient is alert oriented x 3 denies alcohol withdrawal sx denies pain completed alcohol detox regimen and tolerated well wants to go to [facility] inpatient chemical rehab at [facility] patient acknowledged the benefit of healthy life style - Physical Exam Results Vital Signs: Vital Signs Temperature 95.9 F L 07/14/17 06:00 Pulse Rate 78 07/14/17 06:00 Respiratory Rate 20 07/14/17 06:00 Blood Pressure 136/81 07/14/17 06:00 O2 Sat by Pulse Oximetry (%) Pertinent Admission Physical Exam Findings: withdrawal sx Vital Signs Temperature 95.9 F L 07/14/17 06:00 Pulse Rate 78 07/14/17 06:00 Respiratory Rate 20 07/14/17 06:00 Blood Pressure 136/81 07/14/17 06:00 O2 Sat by Pulse Oximetry (%) Laboratory Last Values WBC 5.1 K/mm3 (4.0-10.0) 07/11/17 08:00 RBC 4.93 M/mm3 (4.00-5.60) 07/11/17 08:00 Hgb 11.3 GM/dL (11.7-16.9) L 07/11/17 08:00 Hct 35.7 % (35.4-49) 07/11/17 08:00 MCV 72.5 fl (80-96) L 07/11/17 08:00 MCH 22.9 pg (25.7-33.7) L 07/11/17 08:00 MCHC 31.6 g/dl (32.0-35.9) L 07/11/17 08:00 RDW 16.6 % (11.9-15.9) H 07/11/17 08:00 Plt Count 238 K/MM3 (134-434) D 07/11/17 08:00 MPV 9.2 fl (7.5-11.1) 07/11/17 08:00 Sodium 140 mmol/L (136-145) 07/11/17 08:00 Potassium 4.0 mmol/L (3.5-5.1) 07/11/17 08:00 Chloride 106 mmol/L (98-107) 07/11/17 08:00 Carbon Dioxide 29 mmol/L (21-32) 07/11/17 08:00 Anion Gap 5 (8-16) L 07/11/17 08:00 BUN 13 mg/dL (7-18) 07/11/17 08:00 Creatinine 0.8 mg/dL (0.7-1.3) 07/11/17 08:00 Creat Clearance w eGFR > 60 (>60) 07/11/17 08:00 POC Glucometer 109 UNITS (80-120) 07/14/17 06:11 Random Glucose 143 mg/dL (74-106) H D 07/11/17 08:00 Calcium 8.2 mg/dL (8.5-10.1) L 07/11/17 08:00 Total Bilirubin 0.2 mg/dL (0.2-1.0) D 07/11/17 08:00 AST 11 U/L (15-37) L D 07/11/17 08:00 ALT 20 U/L (12-78) D 07/11/17 08:00 Alkaline Phosphatase 94 U/L (45-117) 07/11/17 08:00 Total Protein 6.5 g/dl (6.4-8.2) 07/11/17 08:00 Albumin 2.9 g/dl (3.4-5.0) L 07/11/17 08:00 Urine Color Yellow 07/11/17 00:32 Urine Appearance Clear 07/11/17 00:32 Urine pH 5.0 (5.0-8.0) 07/11/17 00:32 Ur Specific [place] 1.024 (1.001-1.035) 07/11/17 00:32 Urine Protein 3+ (NEGATIVE) H 07/11/17 00:32 Urine Glucose (UA) 3+ (NEGATIVE) H 07/11/17 00:32 Urine Ketones Trace (NEGATIVE) H 07/11/17 00:32 Urine Blood 1+ (NEGATIVE) H 07/11/17 00:32 Urine Nitrite Negative (NEGATIVE) 07/11/17 00:32 Urine Bilirubin Negative (<2.0 mg/dL) 07/11/17 00:32 Urine Urobilinogen Negative mg/dL (0.2-1.0) 07/11/17 00:32 Ur Leukocyte Esterase Negative (NEGATIVE) 07/11/17 00:32 Urine WBC (Auto) 3 /hpf (3-5) 07/11/17 00:32 Urine RBC (Auto) 7 /hpf (0-3) 07/11/17 00:32 Ur Epithelial Cells Rare /HPF (FEW) 07/11/17 00:32 Hyaline Casts 54 /lpf 07/11/17 00:32 Urine Mucus Rare 07/11/17 00:32 RPR Titer Nonreactive (NONREACTIVE) 07/11/17 08:00 lab noted - Treatment Hospital Course: Detox Protocol Followed, Detoxed Safely, Responded well, Discharged Condition Good, Rehab Referral Accepted Patient has Accepted a Rehab Referral to: [facility] - Medication Discharge Medications: Ambulatory Orders Insulin Glargine,Hum.rec.anlog [Lantus Solostar PEN -] 25 units SQ HS 07/10/17 metFORMIN HCL [Glucophage -] 1,000 mg PO BID@0700,1630 #120 mg 07/13/17 - Diagnosis (1) Alcohol dependence with uncomplicated withdrawal Current Visit: Yes Status: Acute (2) DM Diabetes mellitus type 2 Current Visit: Yes Status: Chronic - AMA Did Patient Leave Against Medical Advice: No
[2017-07-14] MEDS: PRENATAL VITAMINS W/ FOLIC ACID TABLET (FP) PO SCH (10:31)
[2017-07-14] MEDS: TOLNAFTATE 1% CREAM 15 GM TUBE TP SCH (10:31)
[2017-07-14] MEDS: NICOTINE 14 MG/24 HOURS TOPICAL PATCH TD SCH (10:31)
[2017-07-14 13:14] VITALS: BP 129/90; PULSE 93; TEMP 96.3
== END 2017-07-14 14:17 | disposition other institution (70) | DRG 775 ==
LOC: YASAS 17:37 → Y6N 22:49
PROVIDERS: ADMIT Internal Medicine; ATTEND Internal Medicine
PROC: HZ2ZZZZ Detoxification Services for Substance Abuse Treatment (ICD-10-PCS; principal; 2017-07-10)
DX: F10.230 Alcohol dependence with withdrawal, uncomplicated (principal); F25.9 Schizoaffective disorder, unspecified; E11.9 Type 2 diabetes mellitus without complications; Z79.4 Long term (current) use of insulin; Z79.84 Long term (current) use of oral hypoglycemic drugs
CPT/HCPCS: 36415; 80053; 81003; 81015; 82962; 85027; 86593; 93005; 93010

== ENCOUNTER 2017-07-14 14:32 | Inpatient (IN) | payer OTHER ==
--- NOTE | 2017-07-14 15:44 | HP ---
[facility] Rehab Assess/Revision - Admission History Admitted to Rehab from: [facility] Date of Admission to Rehab: 07/14/17 - Findings Detox History & Physical reviewed: Yes Concur with findings: Yes Comments/Additional Findings: transferred from detox to rehab admission as per protocol
[2017-07-14] MEDS ORDERED: NICOTINE POLACRILEX 2 MG GUM BUC PRN (15:45)
[2017-07-14] MEDS ORDERED: MAGNESIUM CITRATE 300 ML BOTTLE PO PRN (15:45)
[2017-07-14] MEDS ORDERED: MENTHOL/PHENOL 1 EACH UD MM PRN (15:45)
[2017-07-14] MEDS ORDERED: LOPERAMIDE HCL 2 MG CAPSULE PO PRN (15:45)
[2017-07-14] MEDS ORDERED: P-EPHED 60MG/TRIPROLIDI 2.5MG TABLET PO PRN (15:45)
[2017-07-14] MEDS ORDERED: guaiFENesin/D-METHORPHAN HB 10 ML UNIT-DOSE CUPS PO PRN (15:45)
[2017-07-14] MEDS ORDERED: MAG HYDROX/AL HYDROX/SIMETH 30 ML UNIT-DOSE CUP PO PRN (15:45)
[2017-07-14] MEDS ORDERED: MAGNESIUM HYDROX 2400MG/30ML ORAL SUSPENSION 30 ML CUP PO PRN (15:45)
[2017-07-14] MEDS ORDERED: ACETAMINOPHEN 325 MG TABLET (FP) PO PRN (15:45)
[2017-07-14] MEDS ORDERED: IBUPROFEN 400 MG TABLET (FP) PO PRN (15:45)
[2017-07-14] MEDS: metFORMIN HCL 500 MG TABLET (FP) PO SCH (16:59)
[2017-07-14] MEDS: THIAMINE HCL 100 MG TABLET (FP) PO SCH (21:03)
[2017-07-14] MEDS: INSULIN DETEMIR 100 UNITS/ML MDV SQ SCH (21:03)
[2017-07-14] MEDS ORDERED: MELATONIN 5 MG TABLETS PO PRN (22:00)
--- NOTE | 2017-07-15 06:11 | HP ---
Psychiatrist Admission - Data Date of interview: 07/15/17 Admission source: 6N Identifying data: This is the first [facility] admission for this 51 years old Black male, unemployed on SSI, homeless Medical History: Significant for GERD, eczema, diabetes mellitus and a history of surgery for right inguinal hernia repair in 2007. smokes 2 cigarettes daily Psychiatric History: Patient is somewhat hostile and not forth coming in providing information. Reports that his first psychiatric hospitalization was in 2005 at [facility] for auditory hallucinations and parnoid delusions. He was diagnosed with Schizoaffective Disorder and started on medications. Reports a couple of subsequent admissions to [facility] with most recent one being 2 months ago. Claims that he was prescribed medications but he was not taking them. According to Dr Staley whom patient saw on 04/12/17, he has no history of psychiatric OPD care and has been off medications for months. However in the past he has been on Seroquel, Risperdal and Abilify.No recent history of psychiatric OPD care.Off psychotropic medications for months citing too many side-effects. He denies history of suicide attempt. At present, patient states he is ok and sleeps well but looks very irritable. He is unwilling to resume psychotropic medications Physical/Sexual Abuse/Trauma History: No reported history of abuse. Vital Signs: Vital Signs - 24 hr 07/15/17 07/15/17 00:30 03:29 Respiratory 18 18 Rate Allergies/Adverse Reactions: Allergies Allergy/AdvReac Type Severity Reaction Status Date / Time No Known Allergies Allergy Verified 07/10/17 21:58 Date of last physical exam: 07/10/17 Concur with the findings of this exam: Yes - Substance Abuse/Tx History Hx Alcohol Use: Yes Hx Substance Use: Yes Substance Use Type: Alcohol (Started drinking alcohol at age 15, consunes 3 pints of beer daily. Last drank on 07/10/17), Cocaine (Started smoking crack cocaine at age 19, consumes one gram daily. Last smked on 07/09/17), Marijuana ( Started smoking marijuana at age 15, consumes $20 worth daily. Last smoked on ) Hx Substance Use Treatment: Yes ([address] previous [address] [facility]) Mental Status Exam - Mental Status Exam Alert and Oriented to: Time, Place, Person Cognitive Function: Fair Patient Appearance: Well Groomed Mood: Irritable Affect: Appropriate Voice Loudness: Normal Thought Process: Intact, Goal Oriented Hallucinations: Denies Suicidal Ideation: Denies Homicidal Ideation: Denies Sleep: Well Muscle strength/Tone: Normal Gait/Station: Normal Psychiatric Findings - Problem List ([place] 1, 2,3) (1) Alcohol dependence Current Visit: No Status: Active (2) Cocaine dependence Current Visit: No Status: Acute (3) Cannabis dependence Current Visit: No Status: Acute (4) Nicotine dependence Current Visit: No Status: Chronic Qualifiers: Nicotine product type: cigarettes Substance use status: uncomplicated Qualified Code(s): F17.210 - Nicotine dependence, cigarettes, uncomplicated (5) Schizoaffective disorder Current Visit: Yes Status: Chronic (6) Substance induced mood disorder Current Visit: Yes Status: Acute (7) DM Diabetes mellitus type 2 Current Visit: No Status: Chronic (8) Eczema Current Visit: No Status: Chronic Qualifiers: Eczema type: flexural Qualified Code(s): L20.82 - Flexural eczema (9) GERD (gastroesophageal reflux disease) Current Visit: No Status: Chronic Qualifiers: Esophagitis presence: without esophagitis Qualified Code(s): K21.9 - Gastro -esophageal reflux disease without esophagitis - Initial Treatment Plan Initial Treatment Plan: Monitor progress
[2017-07-15] MEDS: metFORMIN HCL 500 MG TABLET (FP) PO SCH ×2 (06:36→17:10)
[2017-07-15] MEDS: PRENATAL VITAMINS W/ FOLIC ACID TABLET (FP) PO SCH (10:29)
[2017-07-15] MEDS: NICOTINE 14 MG/24 HOURS TOPICAL PATCH TD SCH (10:29)
[2017-07-15] MEDS: INSULIN DETEMIR 100 UNITS/ML MDV SQ SCH (22:25)
[2017-07-15] MEDS: THIAMINE HCL 100 MG TABLET (FP) PO SCH (22:25)
[2017-07-16] MEDS: metFORMIN HCL 500 MG TABLET (FP) PO SCH ×2 (07:35→16:53)
[2017-07-16] MEDS: PRENATAL VITAMINS W/ FOLIC ACID TABLET (FP) PO SCH (10:31)
[2017-07-16] MEDS: NICOTINE 14 MG/24 HOURS TOPICAL PATCH TD SCH (10:31)
[2017-07-16] MEDS: INSULIN DETEMIR 100 UNITS/ML MDV SQ SCH (21:25)
[2017-07-16] MEDS: THIAMINE HCL 100 MG TABLET (FP) PO SCH (21:25)
[2017-07-17] MEDS: metFORMIN HCL 500 MG TABLET (FP) PO SCH ×2 (07:16→16:49)
[2017-07-17] MEDS: NICOTINE 14 MG/24 HOURS TOPICAL PATCH TD SCH (10:34)
[2017-07-17] MEDS: PRENATAL VITAMINS W/ FOLIC ACID TABLET (FP) PO SCH (10:34)
[2017-07-17] MEDS: THIAMINE HCL 100 MG TABLET (FP) PO SCH (22:01)
[2017-07-17] MEDS: INSULIN DETEMIR 100 UNITS/ML MDV SQ SCH (22:05)
[2017-07-18] MEDS: metFORMIN HCL 500 MG TABLET (FP) PO SCH ×2 (07:05→16:53)
[2017-07-18] MEDS: NICOTINE 14 MG/24 HOURS TOPICAL PATCH TD SCH (10:45)
[2017-07-18] MEDS: PRENATAL VITAMINS W/ FOLIC ACID TABLET (FP) PO SCH (10:45)
[2017-07-18] MEDS ORDERED: COLLOIDAL OATMEAL 1 BAR EACH TP PRN (17:38)
--- NOTE | 2017-07-18 17:42 | PN ---
[facility] Progress Note Note: Patient presents with dry skin and right arm rash. Laboratory Tests 07/14/17 07/14/17 07/15/17 16:58 21:01 06:36 POC Glucometer 323 194 101 07/15/17 07/15/17 07/16/17 17:09 22:24 06:40 POC Glucometer 303 257 118 07/16/17 07/16/17 07/17/17 16:53 21:23 06:37 POC Glucometer 231 185 161 07/17/17 22:02 POC Glucometer 292 Vital Signs Temperature 97.3 F L 07/18/17 06:52 Pulse Rate 83 07/18/17 06:52 Respiratory Rate 20 07/18/17 06:52 Blood Pressure 107/76 07/18/17 06:52 O2 Sat by Pulse Oximetry (%) Obj: Skin: warm and dry. +hyperpigmented rash to right lateral upper arm. No open areas and lesions. A/P: Dry skin Eczema Will start Clotrimazole cream and Aveeno soap monitor clinically
[2017-07-18] MEDS: INSULIN DETEMIR 100 UNITS/ML MDV SQ SCH (22:25)
[2017-07-18] MEDS: CLOTRIMAZOLE 1% CREAM 15 GM TUBE TP SCH (22:26)
[2017-07-18] MEDS: THIAMINE HCL 100 MG TABLET (FP) PO SCH (22:28)
[2017-07-19] MEDS: metFORMIN HCL 500 MG TABLET (FP) PO SCH ×2 (06:17→17:18)
[2017-07-19] MEDS: CLOTRIMAZOLE 1% CREAM 15 GM TUBE TP SCH ×2 (10:55→21:01)
[2017-07-19] MEDS: PRENATAL VITAMINS W/ FOLIC ACID TABLET (FP) PO SCH (10:55)
[2017-07-19] MEDS: NICOTINE 14 MG/24 HOURS TOPICAL PATCH TD SCH (10:55)
[2017-07-19] MEDS: INSULIN DETEMIR 100 UNITS/ML MDV SQ SCH (21:00)
[2017-07-19] MEDS: THIAMINE HCL 100 MG TABLET (FP) PO SCH (21:02)
[2017-07-20] MEDS: metFORMIN HCL 500 MG TABLET (FP) PO SCH ×2 (06:32→16:59)
[2017-07-20] MEDS ORDERED: PT OWN MED DRAWER 7, Y5N ONE ×2 (08:50→21:43)
[2017-07-20] MEDS: NICOTINE 14 MG/24 HOURS TOPICAL PATCH TD SCH (11:10)
[2017-07-20] MEDS: CLOTRIMAZOLE 1% CREAM 15 GM TUBE TP SCH ×2 (11:10→21:44)
[2017-07-20] MEDS: PRENATAL VITAMINS W/ FOLIC ACID TABLET (FP) PO SCH (11:11)
[2017-07-20] MEDS: THIAMINE HCL 100 MG TABLET (FP) PO SCH (21:45)
[2017-07-20] MEDS: INSULIN DETEMIR 100 UNITS/ML MDV SQ SCH (21:45)
[2017-07-21] MEDS: metFORMIN HCL 500 MG TABLET (FP) PO SCH ×2 (07:11→16:40)
[2017-07-21] MEDS: CLOTRIMAZOLE 1% CREAM 15 GM TUBE TP SCH ×2 (10:47→21:27)
[2017-07-21] MEDS: NICOTINE 14 MG/24 HOURS TOPICAL PATCH TD SCH (10:47)
[2017-07-21] MEDS: PRENATAL VITAMINS W/ FOLIC ACID TABLET (FP) PO SCH (10:47)
--- NOTE | 2017-07-21 13:46 | PN ---
Psychiatric Progress Note Vital Signs: Vital Signs Period Temp Pulse Resp BP Sys/Green Pulse Ox Last 24 Hr 97.4 F 83 20-20 124/91 Date of Session: 07/21/17 Chief Complaint:: Discharge Note HPI: Patient addressing Alcohol, Cocaine and Cannabis Dependence comorbid with Nicotine Dependence, Schizoaffective Disorder and Substance-Induced Mood Disorder ROS: Type 2 DM, GERD, Eczema were medically managed Current Medications: Active Medications Generic Name Dose Route Start Last Admin Trade Name Freq PRN Reason Stop Dose Admin Acetaminophen 650 mg 07/14/17 15:45 Tylenol - PO Q4H PRN FEVER Al Hydroxide/Mg Hydroxide 30 ml 07/14/17 15:45 07/16/17 23:56 Mylanta Oral Suspension - PO 30 ml Q6H PRN Administration DYSPEPSIA Clotrimazole 1 applic 07/18/17 22:00 07/21/17 10:47 Lotrimin 1% Cream - TP Not Given BID LANCE Colloidal Oatmeal 1 applic 07/18/17 17:38 07/18/17 22:27 Aveeno Soap - TP 1 applic DAILY PRN Administration HYGEINE Eucalyptus/Menthol/Phenol/Sorbitol 1 each 07/14/17 15:45 Cepastat Lozenge - MM Q4H PRN SORE THROAT Guaifenesin 10 ml 07/14/17 15:45 Robitussin Dm - PO Q6H PRN COUGH Ibuprofen 400 mg 07/14/17 15:45 Motrin - PO Q6H PRN Pain Level 4-6 Insulin Detemir 25 units 07/14/17 22:00 07/20/17 21:45 Levemir Vial SQ 25 units HS LANCE Administration Loperamide HCl 4 mg 07/14/17 15:45 Imodium - PO Q6H PRN DIARRHEA Magnesium Citrate 300 ml 07/14/17 15:45 Citroma - PO Q48H PRN CONSTIPATION Magnesium Hydroxide 30 ml 07/14/17 15:45 Milk Of Magnesia - PO DAILY PRN CONSTIPATION Melatonin 5 mg 07/14/17 22:00 07/17/17 22:01 Melatonin PO 5 mg HS PRN Administration INSOMNIA Metformin HCl 1,000 mg 07/14/17 16:30 07/21/17 07:11 Glucophage - PO 1,000 mg BID@0700,1630 LANCE Administration Nicotine 14 mg 07/15/17 10:00 07/21/17 10:47 Nicoderm Patch - TD Not Given DAILY LANCE Nicotine Polacrilex 2 mg 07/14/17 15:45 Nicorette Gum - BUC Q2H PRN NICOTINE REPLACEMENT RX Multivit/Folic Acid/Iron 1 tab 07/15/17 10:00 07/21/17 10:47 Vitamins (Sjr) - PO Not Given DAILY LANCE Pseudoephedrine/Triprolidine 1 combo 07/14/17 15:45 Actifed - PO TID PRN NASAL CONGESTION Thiamine HCl 100 mg 07/14/17 22:00 07/20/17 21:45 Vitamin B1 - PO Not Given HS LANCE Current Side Effect: No Lab tests ordered: Yes Lab tests reviewed: Yes Provider note:: Patient will complete this program on 07/22/17. He has met his treatment goals and will continue to address his issues in outpatient treatment at [facility]. 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 He is stable for discharge on 07/22/17 Total face to face time:: 35 Mental Status Exam - Mental Status Exam Alert and Oriented to: Time, Place, Person Cognitive Function: Fair Patient Appearance: Well Groomed Mood: Hopeful, Euthymic Affect: Appropriate Patient Behavior: Cooperative Speech Pattern: Clear Voice Loudness: Normal Thought Process: Intact, Goal Oriented Thought Disorder: Not Present Hallucinations: Denies Suicidal Ideation: Denies Homicidal Ideation: Denies Insight/Judgement: Fair Sleep: Well Appetite: Good Muscle strength/Tone: Normal Gait/Station: Normal Psychiatric Treatment Plan - Problem List (1) Alcohol dependence Current Visit: No (2) Cocaine dependence Current Visit: No (3) Cannabis dependence Current Visit: No (4) Nicotine dependence Current Visit: No Qualifiers: Nicotine product type: cigarettes Substance use status: uncomplicated Qualified Code(s): F17.210 - Nicotine dependence, cigarettes, uncomplicated (5) Schizoaffective disorder Current Visit: Yes (6) Substance induced mood disorder Current Visit: Yes (7) DM Diabetes mellitus type 2 Current Visit: No (8) Eczema Current Visit: No Qualifiers: Eczema type: flexural Qualified Code(s): L20.82 - Flexural eczema (9) GERD (gastroesophageal reflux disease) Current Visit: No Qualifiers: Esophagitis presence: without esophagitis Qualified Code(s): K21.9 - Gastro -esophageal reflux disease without esophagitis Initial treatment plan: Patient will be discharged tomorrow and referred to [facility] for outpatient treatment
[2017-07-21] MEDS: INSULIN DETEMIR 100 UNITS/ML MDV SQ SCH (21:28)
[2017-07-21] MEDS: THIAMINE HCL 100 MG TABLET (FP) PO SCH (21:29)
[2017-07-22] MEDS: metFORMIN HCL 500 MG TABLET (FP) PO SCH (06:27)
[2017-07-22 07:16] VITALS: BP 157/85; PULSE 85; TEMP 97.5
== END 2017-07-22 08:10 | disposition home or self-care (01) | DRG 772 ==
LOC: YASAS 14:32 → Y3W 14:33
PROVIDERS: ADMIT Psychiatry & Neurology Psychiatry; ATTEND Psychiatry & Neurology Psychiatry
PROC: HZ42ZZZ Group Counseling for Substance Abuse Treatment, Cognitive-Behavioral (ICD-10-PCS; principal; 2017-07-14)
DX: F10.20 Alcohol dependence, uncomplicated (principal); F14.20 Cocaine dependence, uncomplicated; F12.20 Cannabis dependence, uncomplicated; F17.210 Nicotine dependence, cigarettes, uncomplicated; F25.9 Schizoaffective disorder, unspecified; E11.9 Type 2 diabetes mellitus without complications; Z79.4 Long term (current) use of insulin; Z79.84 Long term (current) use of oral hypoglycemic drugs; L20.82 Flexural eczema; K21.9 Gastro-esophageal reflux disease without esophagitis
CPT/HCPCS: 82962

== ENCOUNTER 2017-11-12 15:47 | Inpatient (IN) | payer OTHER ==
[2017-11-12 16:41] VITALS: BMI 34.4
--- NOTE | 2017-11-12 21:01 | HP ---
CIWA Score - CIWA Score Nausea/Vomitin Muscle Tremors: 3 Anxiety: 3 Agitation: 3 Paroxysmal Sweats: No Perspiration Orientation: 0-Oriented Tacttile Disturbances: 0-None Auditory Disturbances: 0-None Visual Disturbances: 0-None Headache: 3-Moderate CIWA-Ar Total Score: 14 [address] [facility] Chief Complaint: Alcohol withdrawal symptoms Allergies/Adverse Reactions: Allergies Allergy/AdvReac Type Severity Reaction Status Date / Time No Known Allergies Allergy Verified 11/11/17 18:26 History of Present Illness: 52 years old male with a long history of alcohol withdrawal is seeking admission to detox. Patient was in detox/ Rehab. for the period 07/10/2017 - 07/22. He has medical history of DM Type 2, GERD, DEpression and eczema. He denies suicide attempt and suicidal ideation at this time. Exam Limitations: No Limitations - Ebola screening Have you traveled outside of the country in the last 21 days: No (N) Have you had contact with anyone from an Ebola affected area: No Have you been sick,other than usual withdrawal symptoms: No Do you have a fever: No - Review of Systems Constitutional: Chills, Loss of Appetite, Malaise, Weakness EENT: reports: No Symptoms Reported Respiratory: reports: No Symptoms reported Cardiac: reports: No Symptoms Reported GI: reports: Poor Appetite, Poor Fluid Intake, Abdominal cramping : reports: No Symptoms Reported Musculoskeletal: reports: No Symptoms Reported Integumentary: reports: Dryness, Flushing Neuro: reports: Tremors Endocrine: reports: No Symptoms Reported Hematology: reports: No Symptoms Reported Psychiatric: reports: Mood/Affect Appropiate, Orientated x3 Other Systems: Reviewed and Negative Patient History - Patient Medical History Hx Anemia: No Hx Asthma: No Hx Chronic Obstructive Pulmonary Disease (COPD): No Hx Cancer: No Hx Cardiac Disorders: No Hx Congestive Heart Failure: No Hx Hypertension: No Hx Hypercholesterolemia: No Hx Pacemaker: No HX Cerebrovascular Accident: No Hx Seizures: No Hx Dementia: No Hx Diabetes: Yes Hx Gastrointestinal Disorders: No Hx Liver Disease: No Hx Genitourinary Disorders: No Hx Sexually Transmitted Disorders: No Hx Renal Disease (ESRD): No Hx Thyroid Disease: No Hx Human Immunodeficiency Virus (HIV): No (Negative 2017) Hx Hepatitis C: No Hx Depression: No Hx Suicide Attempt: No Hx Bipolar Disorder: Yes (Not on medication) Hx Schizophrenia: No - Patient Surgical History Past Surgical History: Yes Hx Neurologic Surgery: No Hx Cataract Extraction: No Hx Cardiac Surgery: No Hx Lung Surgery: No Hx Abdominal Surgery: No Hx Appendectomy: No Hx Cholecystectomy: No Hx Genitourinary Surgery: No Hx Section: No Hx Orthopedic Surgery: No Other Surgical History: right inguinal hernia repair in 2007 Anesthesia Reaction: No - PPD History Previous Implant?: Yes Documented Results: Negative w/proof Date: 11/11/16 Results: 0mm PPD to be Administered?: Yes - Reproductive History Patient is a Female of Child Bearing Age (11 -55 yrs old): No (MALE) - Smoking Cessation Smoking history: Current every day smoker Have you smoked in the past 12 months: Yes Aproximately how many cigarettes per day: 4 Cigars Per Day: 0 Hx Chewing Tobacco Use: No Initiated information on smoking cessation: Yes 'Breaking Loose' booklet given: 11/12/17 - Substance & Tx. History Hx Alcohol Use: Yes Hx Substance Use: Yes Substance Use Type: Cocaine, Marijuana Hx Substance Use Treatment: Yes ([facility]) - Substances Abused Alcohol Route: Oral Frequency: Daily Amount used: 2 pints vodka Age of first use: 15 Date of Last Use: 11/12/17 Cocaine Route: Smoking Frequency: Daily Amount used: $100 Age of first use: 19 Date of Last Use: 11/12/17 PCP Route: Smoking Frequency: 1-3 times last 30 days Amount used: $20 Age of first use: 49 Date of Last Use: 11/12/17 Family Disease History - Family Disease History Family Disease History: Diabetes: Grandparent Admission Physical Exam [facility] - Vital Signs Vital Signs: Vital Signs - 24 hr 11/12/17 16:38 Temperature 97.5 F L Pulse Rate 90 Respiratory 18 Rate Blood Pressure 140/80 - Physical General Appearance: Yes: Moderate Distress, Tremorous, Irritable, Anxious HEENTM: Yes: EOMI, Normal ENT Inspection, Normocephalic, Normal Voice Respiratory: Yes: Lungs Clear, Normal Breath Sounds, No Respiratory Distress Neck: Yes: Supple Breast: Yes: Breast Exam Deferred Cardiology: Yes: Regular Rhythm, Regular Rate, S1, S2 Abdominal: Yes: Normal Bowel Sounds Genitourinary: Yes: Within Normal Limits Back: Yes: Normal Inspection Musculoskeletal: Yes: Muscle Pain Extremities: Yes: Tremors Neurological: Yes: Alert, Normal Mood/Affect Integumentary: Yes: Warm Lymphatic: Yes: Within Normal Limits - Diagnostic (1) depression Current Visit: Yes Status: Chronic (2) gerd Current Visit: Yes Status: Acute (3) Alcohol dependence with uncomplicated withdrawal Current Visit: Yes Status: Chronic (4) Cannabis dependence Current Visit: Yes Status: Chronic (5) Drug-induced mood disorder Current Visit: Yes Status: Chronic (6) DM Diabetes mellitus type 2 Current Visit: Yes Status: Chronic (7) Eczema Current Visit: Yes Status: Chronic Qualifiers: Eczema type: flexural Qualified Code(s): L20.82 - Flexural eczema (8) GERD (gastroesophageal reflux disease) Current Visit: Yes Status: Chronic Qualifiers: Esophagitis presence: without esophagitis Qualified Code(s): K21.9 - Gastro -esophageal reflux disease without esophagitis (9) Nicotine dependence Current Visit: Yes Status: Chronic Qualifiers: Nicotine product type: cigarettes Substance use status: uncomplicated Qualified Code(s): F17.210 - Nicotine dependence, cigarettes, uncomplicated Cleared for Admission [facility] - Detox or Rehab [facility] Level of Care: Medically Managed Detox Regimen/Protocol: Librium [facility] Breath Alcohol Content Breath Alcohol Content: 0.086 Urine Drug Screen - Results Drug Screen Negative: No Urine Drug Screen Results: GUERRERO-Cocaine, PCP-Phencyclidine
[2017-11-12] MEDS ORDERED: IBUPROFEN 400 MG TABLET (FP) PO PRN (21:29)
[2017-11-12] MEDS ORDERED: MAG HYDROX/AL HYDROX/SIMETH 30 ML UNIT-DOSE CUP PO PRN (21:29)
[2017-11-12] MEDS ORDERED: MENTHOL/PHENOL 1 EACH UD MM PRN (21:29)
[2017-11-12] MEDS ORDERED: MAGNESIUM HYDROX 2400MG/30ML ORAL SUSPENSION 30 ML CUP PO PRN (21:29)
[2017-11-12] MEDS ORDERED: ACETAMINOPHEN 325 MG TABLET (FP) PO PRN (21:29)
[2017-11-12] MEDS ORDERED: NICOTINE POLACRILEX 2 MG GUM BUC PRN (21:29)
[2017-11-12] MEDS ORDERED: LOPERAMIDE HCL 2 MG CAPSULE PO PRN (21:29)
[2017-11-12] MEDS ORDERED: MAGNESIUM CITRATE 300 ML BOTTLE PO PRN (21:29)
[2017-11-12] MEDS ORDERED: chlordiazePOXIDE HCL 25 MG CAPSULE PO PRN (21:29)
[2017-11-12] MEDS ORDERED: guaiFENesin/D-METHORPHAN HB 10 ML UNIT-DOSE CUPS PO PRN (21:29)
[2017-11-12] MEDS ORDERED: P-EPHED 60MG/TRIPROLIDI 2.5MG TABLET PO PRN (21:29)
[2017-11-12] MEDS ORDERED: MELATONIN 5 MG TABLETS PO PRN (22:00)
[2017-11-12] MEDS: INSULIN (LEVEMIR) 100 UNITS/ML UNITS SQ SCH (22:30)
[2017-11-12] MEDS ORDERED: INSULIN (NOVOLOG) ASPART 100 UNITS/ML 10ML VIAL ONE (22:33)
[2017-11-12] MEDS: INSULIN SLIDING SCALE (NOVOLOG) 1 VIAL SQ SCH (22:37)
[2017-11-12] MEDS: THIAMINE HCL 100 MG TABLET (FP) PO SCH (22:38)
[2017-11-12] MEDS: chlordiazePOXIDE HCL 25 MG CAPSULE PO SCH (22:38)
[2017-11-13 05:11] LABS: URINE APPEARANCE CLEAR; URINE BILIRUBIN NEGATIVE (<2.0 mg/dL); URINE COLOR STRAW; URINE GLUCOSE (UA) 3+ (NEGATIVE); URINE KETONE NEGATIVE (NEGATIVE); URINE LEUK ESTERASE NEGATIVE (NEGATIVE); URINE NITRITE NEGATIVE (NEGATIVE); URINE UROBILINOGEN NEGATIVE mg/dL (0.2-1.0)
[2017-11-13 05:38] LABS: URINE PROTEIN 1+ (NEGATIVE)
[2017-11-13 05:42] LABS: EPI CELLS RARE /HPF (FEW)
[2017-11-13] MEDS ORDERED: INSULIN (NOVOLOG) ASPART 100 UNITS/ML 10ML VIAL ONE ×2 (05:56→16:31)
[2017-11-13] MEDS: metFORMIN HCL 500 MG TABLET (FP) PO SCH ×2 (06:01→17:42)
[2017-11-13] MEDS: INSULIN SLIDING SCALE (NOVOLOG) 1 VIAL SQ SCH ×3 (06:02→17:44)
[2017-11-13] MEDS: chlordiazePOXIDE HCL 25 MG CAPSULE PO SCH ×4 (06:19→22:36)
[2017-11-13 09:51] LABS: HEMATOCRIT 34.3 % (35.4-49); HEMOGLOBIN 11.1 GM/dL (11.7-16.9); MCH 23.4 pg (25.7-33.7); MCHC 32.3 g/dl (32.0-35.9); MEAN CELL VOLUME 72.5 fl (80-96); MEAN PLT VOLUME 9.4 fl (7.5-11.1); PLATELET COUNT 247 K/MM3 (134-434); RBC 4.74 M/mm3 (4.00-5.60); RDW 16.3 % (11.9-15.9); WHITE BLOOD COUNT 6.9 K/mm3 (4.0-10.0)
[2017-11-13 10:05] LABS: CHLORIDE 104 mmol/L (98-107); POTASSIUM 3.9 mmol/L (3.5-5.1); SODIUM 141 mmol/L (136-145)
[2017-11-13] MEDS: NICOTINE 14 MG/24 HOURS TOPICAL PATCH TD SCH (10:13)
[2017-11-13] MEDS: PRENATAL VITAMINS W/ FOLIC ACID TABLET (FP) PO SCH (10:14)
[2017-11-13 10:40] LABS: ALBUMIN 2.7 g/dl (3.4-5.0); ALK PHOS 135 U/L (45-117); ANION GAP 10 (8-16); BILIRUBIN,TOTAL 0.2 mg/dL (0.2-1.0); BLOOD UREA NITROGEN 11 mg/dL (7-18); CALCIUM 8.1 mg/dL (8.5-10.1); CO2 27 mmol/L (21-32); GLUCOSE,RANDOM 161 mg/dL (74-106); SGOT/AST 19 U/L (15-37); SGPT/ALT 30 U/L (12-78); TOT PROT 6.6 g/dl (6.4-8.2)
--- NOTE | 2017-11-13 12:50 | EKG ---
Test Reason : Blood Pressure : / mmHG Vent. Rate : 085 BPM Atrial Rate : 085 BPM P-R Int : 148 ms QRS Dur : 090 ms QT Int : 372 ms P-R-T Axes : 053 040 071 degrees QTc Int : 442 ms NORMAL SINUS RHYTHM NONSPECIFIC T WAVE ABNORMALITY ABNORMAL ECG WHEN COMPARED WITH ECG OF 12-NOV-2017 22:14, PREMATURE VENTRICULAR COMPLEXES ARE NO LONGER PRESENT NONSPECIFIC T WAVE ABNORMALITY NOW EVIDENT IN ANTERIOR LEADS Confirmed by ARLEEN OSWALD MD ([id number]) on 11/13/2017 12:50:36 PM Referred By: Confirmed By:ARLEEN OSWALD MD
--- NOTE | 2017-11-13 14:47 | CONSULT ---
[facility] Psychiatric Consult - Data Date of interview: 11/13/17 Admission source: 52 years old male with a long history of alcohol withdrawal is seeking admi Identifying data: This ism 52 years old male, single, homeless on [place], with no psychiatric hospitalization history, as per computer bwith Bipolar Disorder history, with a long history of alcohol, PCP, Cocaine, Nicotine dependence, reports Alcohol withdrawal symptoms and is seeking admission to detox. Substance Abuse History: - Smoking Cessation. Smoking history: Current every day smoker. Have you smoked in the past 12 months: Yes. Aproximately how many cigarettes per day: 4. Cigars Per Day: 0. Hx Chewing Tobacco Use: No. Initiated information on smoking cessation: Yes. 'Breaking Loose' booklet given : 11/12/17. - Substance & Tx. History. Hx Alcohol Use: Yes. Hx Substance Use : Yes. Substance Use Type: Cocaine, Marijuana. Hx Substance Use Treatment: Yes ([facility]). - Substances Abused. Alcohol. Route: Oral. Frequency: Daily. Amount used: 2 pints vodka. Age of first use: 15. Date of Last Use: . Cocaine. Route: Smoking. Frequency: Daily. Amount used: $100. Age of first use: 19. Date of Last Use: 11/12/17. PCP. Route: Smoking. Frequency: 1-3 times last 30 days. Amount used: $20. Age of first use: 49. Date of Last Use: 11/12/17 Medical History: GERD, DM-II, Ecxema Psychiatric History: Patient reports history of deprerssion, as per computer there is a history of Bipolar Disorder, patient reports no psychiatric hospitalization history, no medications taking prior to admission. Physical/Sexual Abuse/Trauma History: Denies Additional Comment: Observation. Detox Unit Care Protocol Mental Status Exam - Mental Status Exam Alert and Oriented to: Person Cognitive Function: Fair Patient Appearance: Unkempt Mood: Sad Affect: Mood Congruent Patient Behavior: Cooperative Speech Pattern: Delayed Voice Loudness: Mildly Soft/Quiet Thought Process: Circumstantial, Goal Oriented Thought Disorder: Being Controlled Hallucinations: Denies Suicidal Ideation: Denies Homicidal Ideation: Denies Insight/Judgement: Fair Sleep: Difficulty falling asleep Appetite: Weight gain Muscle strength/Tone: Mild Hypotonicity Gait/Station: Shuffling Additional Comments: Observation. Detox Unit Care Protocol Psychiatric Findings - Problem List ([place] 1, 2,3) (1) PCP (phencyclidine) abuse Current Visit: Yes Status: Acute (2) Alcohol dependence with uncomplicated withdrawal Current Visit: Yes Status: Chronic (3) Cannabis dependence Current Visit: Yes Status: Chronic (4) Drug-induced mood disorder Current Visit: Yes Status: Chronic (5) Nicotine dependence Current Visit: Yes Status: Chronic Qualifiers: Nicotine product type: cigarettes Substance use status: uncomplicated Qualified Code(s): F17.210 - Nicotine dependence, cigarettes, uncomplicated (6) depression Current Visit: Yes Status: Chronic (7) Substance induced mood disorder Current Visit: No Status: Acute (8) Schizoaffective disorder Current Visit: No Status: Chronic - Initial Treatment Plan Initial Treatment Plan: Observation. Detox Unit Care Protocol
--- NOTE | 2017-11-13 15:20 | PN ---
S CIWA - CIWA Score Nausea/Vomitin-Int. Nausea w/Dry Heave Muscle Tremors: 2 Anxiety: 3 Agitation: 2 Paroxysmal Sweats: 2 Orientation: 0-Oriented Tacttile Disturbances: 0-None Auditory Disturbances: 0-None Visual Disturbances: 0-None Headache: 0-None Present CIWA-Ar Total Score: 13 S Progress Note (SOAP) Subjective: c/o of fatigue, interrupted sleep, chills, shakes sweats Objective: 11/13/17 15:18 Vital Signs Temperature 98.1 F 11/13/17 13:07 Pulse Rate 93 H 11/13/17 13:07 Respiratory Rate 20 11/13/17 13:07 Blood Pressure 141/91 11/13/17 13:07 O2 Sat by Pulse Oximetry (%) Laboratory Last Values WBC 6.9 K/mm3 (4.0-10.0) 11/13/17 07:30 RBC 4.74 M/mm3 (4.00-5.60) 11/13/17 07:30 Hgb 11.1 GM/dL (11.7-16.9) L 11/13/17 07:30 Hct 34.3 % (35.4-49) L 11/13/17 07:30 MCV 72.5 fl (80-96) L 11/13/17 07:30 MCH 23.4 pg (25.7-33.7) L 11/13/17 07:30 MCHC 32.3 g/dl (32.0-35.9) 11/13/17 07:30 RDW 16.3 % (11.9-15.9) H 11/13/17 07:30 Plt Count 247 K/MM3 (134-434) 11/13/17 07:30 MPV 9.4 fl (7.5-11.1) 11/13/17 07:30 Sodium 141 mmol/L (136-145) 11/13/17 07:30 Potassium 3.9 mmol/L (3.5-5.1) 11/13/17 07:30 Chloride 104 mmol/L (98-107) 11/13/17 07:30 Carbon Dioxide 27 mmol/L (21-32) 11/13/17 07:30 Anion Gap 10 (8-16) 11/13/17 07:30 BUN 11 mg/dL (7-18) 11/13/17 07:30 Creatinine 1.0 mg/dL (0.7-1.3) 11/13/17 07:30 Creat Clearance w eGFR > 60 (>60) 11/13/17 07:30 POC Glucometer 115 UNITS (80-120) 11/13/17 11:10 Random Glucose 161 mg/dL (74-106) H 11/13/17 07:30 Calcium 8.1 mg/dL (8.5-10.1) L 11/13/17 07:30 Total Bilirubin 0.2 mg/dL (0.2-1.0) 11/13/17 07:30 AST 19 U/L (15-37) D 11/13/17 07:30 ALT 30 U/L (12-78) D 11/13/17 07:30 Alkaline Phosphatase 135 U/L (45-117) H 11/13/17 07:30 Total Protein 6.6 g/dl (6.4-8.2) 11/13/17 07:30 Albumin 2.7 g/dl (3.4-5.0) L 11/13/17 07:30 Urine Color Straw 11/12/17 23:22 Urine Appearance Clear 11/12/17 23:22 Urine pH 5.0 (5.0-8.0) 11/12/17 23:22 Ur Specific [place] 1.023 (1.001-1.035) 11/12/17 23:22 Urine Protein 1+ (NEGATIVE) H D 11/12/17 23:22 Urine Glucose (UA) 3+ (NEGATIVE) H 11/12/17 23:22 Urine Ketones Negative (NEGATIVE) 11/12/17 23:22 Urine Blood Negative (NEGATIVE) 11/12/17 23:22 Urine Nitrite Negative (NEGATIVE) 11/12/17 23:22 Urine Bilirubin Negative (<2.0 mg/dL) 11/12/17 23:22 Urine Urobilinogen Negative mg/dL (0.2-1.0) 11/12/17 23:22 Ur Leukocyte Esterase Negative (NEGATIVE) 11/12/17 23:22 Urine WBC (Auto) <1 /hpf (3-5) 11/12/17 23:22 Urine RBC (Auto) <1 /hpf (0-3) 11/12/17 23:22 Ur Epithelial Cells Rare /HPF (FEW) 11/12/17 23:22 RPR Titer Nonreactive (NONREACTIVE) 11/13/17 07:30 HIV 1&2 Antibody Screen Negative 11/13/17 07:30 HIV P24 Antigen Negative 11/13/17 07:30 Lab reviewed AOX3 no distress full ROM ambulating in the unit 11/13/17 15:19 Assessment: 11/13/17 15:19 withdrawal symptoms Plan: continue detox increase PO fluids continue to monitor
[2017-11-13] MEDS: INSULIN (LEVEMIR) 100 UNITS/ML UNITS SQ SCH (22:37)
[2017-11-13] MEDS: THIAMINE HCL 100 MG TABLET (FP) PO SCH (22:37)
[2017-11-14] MEDS: chlordiazePOXIDE HCL 25 MG CAPSULE PO SCH ×3 (06:21→17:47)
[2017-11-14] MEDS: metFORMIN HCL 500 MG TABLET (FP) PO SCH ×2 (06:21→17:47)
[2017-11-14] MEDS ORDERED: INSULIN (NOVOLOG) ASPART 100 UNITS/ML 10ML VIAL ONE ×2 (06:27→16:43)
[2017-11-14] MEDS: INSULIN SLIDING SCALE (NOVOLOG) 1 VIAL SQ SCH ×3 (07:36→17:48)
[2017-11-14] MEDS: PRENATAL VITAMINS W/ FOLIC ACID TABLET (FP) PO SCH (10:52)
[2017-11-14] MEDS: NICOTINE 14 MG/24 HOURS TOPICAL PATCH TD SCH (10:52)
--- NOTE | 2017-11-14 15:33 | PN ---
S CIWA - CIWA Score Nausea/Vomitin-Mild Nausea/No Vomiting Muscle Tremors: 2 Anxiety: 1-Mildly Anxious Agitation: 1-Slight > Activity Paroxysmal Sweats: 1-Minimal Palms Moist Orientation: 0-Oriented Tacttile Disturbances: 0-None Auditory Disturbances: 0-None Visual Disturbances: 0-None Headache: 0-None Present CIWA-Ar Total Score: 6 [facility] Progress Note (SOAP) Subjective: pt without complaints Objective: 11/14/17 15:32 Vital Signs - 24 hr 11/13/17 11/13/17 11/14/17 18:11 21:45 00:30 Temperature 97.2 F L 98.0 F Pulse Rate 91 H 73 Respiratory 16 18 18 Rate Blood Pressure 117/71 143/94 11/14/17 11/14/17 11/14/17 03:30 06:30 06:41 Temperature 98.9 F Pulse Rate 76 Respiratory 20 18 18 Rate Blood Pressure 135/92 11/14/17 09:29 Temperature 97.7 F Pulse Rate 78 Respiratory 18 Rate Blood Pressure 136/86 Laboratory Tests 11/12/17 11/12/17 11/12/17 18:33 21:12 23:22 WBC RBC Hgb Hct MCV MCH MCHC RDW Plt Count MPV Sodium Potassium Chloride Carbon Dioxide Anion Gap BUN Creatinine Creat Clearance w eGFR POC Glucometer 508 442 Random Glucose Calcium Total Bilirubin AST ALT Alkaline Phosphatase Total Protein Albumin Urine Color Straw Urine Appearance Clear Urine pH 5.0 Ur Specific [place] 1.023 Urine Protein 1+ H D Urine Glucose (UA) 3+ H Urine Ketones Negative Urine Blood Negative Urine Nitrite Negative Urine Bilirubin Negative Urine Urobilinogen Negative Ur Leukocyte Esterase Negative Urine WBC (Auto) <1 Urine RBC (Auto) <1 Ur Epithelial Cells Rare RPR Titer HIV 1&2 Antibody Screen HIV P24 Antigen 11/13/17 11/13/17 11/13/17 05:53 07:30 07:30 WBC 6.9 RBC 4.74 Hgb 11.1 L Hct 34.3 L MCV 72.5 L MCH 23.4 L MCHC 32.3 RDW 16.3 H Plt Count 247 MPV 9.4 Sodium Potassium Chloride Carbon Dioxide Anion Gap BUN Creatinine Creat Clearance w eGFR POC Glucometer 203 Random Glucose Calcium Total Bilirubin AST ALT Alkaline Phosphatase Total Protein Albumin Urine Color Urine Appearance Urine pH Ur Specific [place] Urine Protein Urine Glucose (UA) Urine Ketones Urine Blood Urine Nitrite Urine Bilirubin Urine Urobilinogen Ur Leukocyte Esterase Urine WBC (Auto) Urine RBC (Auto) Ur Epithelial Cells RPR Titer HIV 1&2 Antibody Screen Negative HIV P24 Antigen Negative 11/13/17 11/13/17 11/13/17 07:30 07:30 11:10 WBC RBC Hgb Hct MCV MCH MCHC RDW Plt Count MPV Sodium 141 Potassium 3.9 Chloride 104 Carbon Dioxide 27 Anion Gap 10 BUN 11 Creatinine 1.0 Creat Clearance w eGFR > 60 POC Glucometer 115 Random Glucose 161 H Calcium 8.1 L Total Bilirubin 0.2 AST 19 D ALT 30 D Alkaline Phosphatase 135 H Total Protein 6.6 Albumin 2.7 L Urine Color Urine Appearance Urine pH Ur Specific [place] Urine Protein Urine Glucose (UA) Urine Ketones Urine Blood Urine Nitrite Urine Bilirubin Urine Urobilinogen Ur Leukocyte Esterase Urine WBC (Auto) Urine RBC (Auto) Ur Epithelial Cells RPR Titer Nonreactive HIV 1&2 Antibody Screen HIV P24 Antigen 11/14/17 11/14/17 06:15 10:56 WBC RBC Hgb Hct MCV MCH MCHC RDW Plt Count MPV Sodium Potassium Chloride Carbon Dioxide Anion Gap BUN Creatinine Creat Clearance w eGFR POC Glucometer 344 111 Random Glucose Calcium Total Bilirubin AST ALT Alkaline Phosphatase Total Protein Albumin Urine Color Urine Appearance Urine pH Ur Specific [place] Urine Protein Urine Glucose (UA) Urine Ketones Urine Blood Urine Nitrite Urine Bilirubin Urine Urobilinogen Ur Leukocyte Esterase Urine WBC (Auto) Urine RBC (Auto) Ur Epithelial Cells RPR Titer HIV 1&2 Antibody Screen HIV P24 Antigen labs shows mild anemia increased blood sugar Assessment: 11/14/17 15:32 52 years old male with a long history of alcohol withdrawal is here for detox. Plan: continue alcohol detox mild anemia increased blood sugar
[2017-11-14] MEDS: INSULIN (LEVEMIR) 100 UNITS/ML UNITS SQ SCH (21:35)
[2017-11-14] MEDS: THIAMINE HCL 100 MG TABLET (FP) PO SCH (22:34)
[2017-11-14] MEDS: chlordiazePOXIDE 5 MG CAPSULE PO SCH (22:35)
[2017-11-15] MEDS: metFORMIN HCL 500 MG TABLET (FP) PO SCH ×2 (06:39→16:50)
[2017-11-15] MEDS: INSULIN SLIDING SCALE (NOVOLOG) 1 VIAL SQ SCH ×3 (06:40→17:40)
[2017-11-15] MEDS: chlordiazePOXIDE 5 MG CAPSULE PO SCH ×3 (07:19→18:50)
[2017-11-15] MEDS: NICOTINE 14 MG/24 HOURS TOPICAL PATCH TD SCH (11:54)
[2017-11-15] MEDS: PRENATAL VITAMINS W/ FOLIC ACID TABLET (FP) PO SCH (11:55)
--- NOTE | 2017-11-15 17:52 | PN ---
[facility] Progress Note (SOAP) Subjective: Sweating, Tremors, Body Aches. Objective: PATIENT A & O X 3. NO ACUTE DISTRESS. 11/15/17 17:51 Vital Signs Temperature 97.2 F L 11/15/17 15:13 Pulse Rate 65 11/15/17 15:13 Respiratory Rate 18 11/15/17 15:13 Blood Pressure 118/72 11/15/17 15:13 O2 Sat by Pulse Oximetry (%) Laboratory Tests 11/12/17 11/12/17 11/12/17 18:33 21:12 23:22 WBC RBC Hgb Hct MCV MCH MCHC RDW Plt Count MPV Sodium Potassium Chloride Carbon Dioxide Anion Gap BUN Creatinine Creat Clearance w eGFR POC Glucometer 508 442 Random Glucose Calcium Total Bilirubin AST ALT Alkaline Phosphatase Total Protein Albumin Urine Color Straw Urine Appearance Clear Urine pH 5.0 Ur Specific [place] 1.023 Urine Protein 1+ H D Urine Glucose (UA) 3+ H Urine Ketones Negative Urine Blood Negative Urine Nitrite Negative Urine Bilirubin Negative Urine Urobilinogen Negative Ur Leukocyte Esterase Negative Urine WBC (Auto) <1 Urine RBC (Auto) <1 Ur Epithelial Cells Rare RPR Titer HIV 1&2 Antibody Screen HIV P24 Antigen 11/13/17 11/13/17 11/13/17 05:53 07:30 07:30 WBC 6.9 RBC 4.74 Hgb 11.1 L Hct 34.3 L MCV 72.5 L MCH 23.4 L MCHC 32.3 RDW 16.3 H Plt Count 247 MPV 9.4 Sodium Potassium Chloride Carbon Dioxide Anion Gap BUN Creatinine Creat Clearance w eGFR POC Glucometer 203 Random Glucose Calcium Total Bilirubin AST ALT Alkaline Phosphatase Total Protein Albumin Urine Color Urine Appearance Urine pH Ur Specific [place] Urine Protein Urine Glucose (UA) Urine Ketones Urine Blood Urine Nitrite Urine Bilirubin Urine Urobilinogen Ur Leukocyte Esterase Urine WBC (Auto) Urine RBC (Auto) Ur Epithelial Cells RPR Titer HIV 1&2 Antibody Screen Negative HIV P24 Antigen Negative 11/13/17 11/13/17 11/13/17 07:30 07:30 11:10 WBC RBC Hgb Hct MCV MCH MCHC RDW Plt Count MPV Sodium 141 Potassium 3.9 Chloride 104 Carbon Dioxide 27 Anion Gap 10 BUN 11 Creatinine 1.0 Creat Clearance w eGFR > 60 POC Glucometer 115 Random Glucose 161 H Calcium 8.1 L Total Bilirubin 0.2 AST 19 D ALT 30 D Alkaline Phosphatase 135 H Total Protein 6.6 Albumin 2.7 L Urine Color Urine Appearance Urine pH Ur Specific [place] Urine Protein Urine Glucose (UA) Urine Ketones Urine Blood Urine Nitrite Urine Bilirubin Urine Urobilinogen Ur Leukocyte Esterase Urine WBC (Auto) Urine RBC (Auto) Ur Epithelial Cells RPR Titer Nonreactive HIV 1&2 Antibody Screen HIV P24 Antigen 11/14/17 11/14/17 11/14/17 06:15 10:56 16:18 WBC RBC Hgb Hct MCV MCH MCHC RDW Plt Count MPV Sodium Potassium Chloride Carbon Dioxide Anion Gap BUN Creatinine Creat Clearance w eGFR POC Glucometer 344 111 249 Random Glucose Calcium Total Bilirubin AST ALT Alkaline Phosphatase Total Protein Albumin Urine Color Urine Appearance Urine pH Ur Specific [place] Urine Protein Urine Glucose (UA) Urine Ketones Urine Blood Urine Nitrite Urine Bilirubin Urine Urobilinogen Ur Leukocyte Esterase Urine WBC (Auto) Urine RBC (Auto) Ur Epithelial Cells RPR Titer HIV 1&2 Antibody Screen HIV P24 Antigen 11/15/17 11/15/17 06:29 16:33 WBC RBC Hgb Hct MCV MCH MCHC RDW Plt Count MPV Sodium Potassium Chloride Carbon Dioxide Anion Gap BUN Creatinine Creat Clearance w eGFR POC Glucometer 167 387 Random Glucose Calcium Total Bilirubin AST ALT Alkaline Phosphatase Total Protein Albumin Urine Color Urine Appearance Urine pH Ur Specific [place] Urine Protein Urine Glucose (UA) Urine Ketones Urine Blood Urine Nitrite Urine Bilirubin Urine Urobilinogen Ur Leukocyte Esterase Urine WBC (Auto) Urine RBC (Auto) Ur Epithelial Cells RPR Titer HIV 1&2 Antibody Screen HIV P24 Antigen LABS NOTED. Assessment: 11/15/17 17:51 WITHDRAWAL SYMPTOMS. ANEMIA. 11/15/17 17:52 Plan: CONTINUE DETOX.
[2017-11-15] MEDS: THIAMINE HCL 100 MG TABLET (FP) PO SCH (23:19)
[2017-11-15] MEDS: chlordiazePOXIDE HCL 10 MG CAPSULE PO SCH (23:19)
[2017-11-15] MEDS: INSULIN (LEVEMIR) 100 UNITS/ML UNITS SQ SCH (23:19)
[2017-11-16] MEDS: chlordiazePOXIDE HCL 10 MG CAPSULE PO SCH (06:00)
[2017-11-16] MEDS: metFORMIN HCL 500 MG TABLET (FP) PO SCH (06:37)
[2017-11-16] MEDS: INSULIN SLIDING SCALE (NOVOLOG) 1 VIAL SQ SCH (06:40)
[2017-11-16 11:02] VITALS: BP 149/97; PULSE 94; TEMP 96.4
--- NOTE | 2017-11-16 12:06 | DS ---
[facility] Detox Discharge Summary Admission Date: 11/12/17 Discharge Date: 11/16/17 - History Present History: Alcohol Dependence, Cannabis Dependence Pertinent Past History: Eczema GERD DMT2 Anemia - Physical Exam Results Vital Signs: Vital Signs Temperature 96.4 F L 11/16/17 11:01 Pulse Rate 94 H 11/16/17 11:01 Respiratory Rate 18 11/16/17 11:01 Blood Pressure 149/97 11/16/17 11:01 O2 Sat by Pulse Oximetry (%) Pertinent Admission Physical Exam Findings: Withdrawal symptoms Laboratory Tests 11/12/17 11/12/17 11/12/17 18:33 21:12 23:22 WBC RBC Hgb Hct MCV MCH MCHC RDW Plt Count MPV Sodium Potassium Chloride Carbon Dioxide Anion Gap BUN Creatinine Creat Clearance w eGFR POC Glucometer 508 442 Random Glucose Calcium Total Bilirubin AST ALT Alkaline Phosphatase Total Protein Albumin Urine Color Straw Urine Appearance Clear Urine pH 5.0 Ur Specific [place] 1.023 Urine Protein 1+ H D Urine Glucose (UA) 3+ H Urine Ketones Negative Urine Blood Negative Urine Nitrite Negative Urine Bilirubin Negative Urine Urobilinogen Negative Ur Leukocyte Esterase Negative Urine WBC (Auto) <1 Urine RBC (Auto) <1 Ur Epithelial Cells Rare RPR Titer HIV 1&2 Antibody Screen HIV P24 Antigen 11/13/17 11/13/17 11/13/17 05:53 07:30 07:30 WBC 6.9 RBC 4.74 Hgb 11.1 L Hct 34.3 L MCV 72.5 L MCH 23.4 L MCHC 32.3 RDW 16.3 H Plt Count 247 MPV 9.4 Sodium Potassium Chloride Carbon Dioxide Anion Gap BUN Creatinine Creat Clearance w eGFR POC Glucometer 203 Random Glucose Calcium Total Bilirubin AST ALT Alkaline Phosphatase Total Protein Albumin Urine Color Urine Appearance Urine pH Ur Specific [place] Urine Protein Urine Glucose (UA) Urine Ketones Urine Blood Urine Nitrite Urine Bilirubin Urine Urobilinogen Ur Leukocyte Esterase Urine WBC (Auto) Urine RBC (Auto) Ur Epithelial Cells RPR Titer HIV 1&2 Antibody Screen Negative HIV P24 Antigen Negative 11/13/17 11/13/17 11/13/17 07:30 07:30 11:10 WBC RBC Hgb Hct MCV MCH MCHC RDW Plt Count MPV Sodium 141 Potassium 3.9 Chloride 104 Carbon Dioxide 27 Anion Gap 10 BUN 11 Creatinine 1.0 Creat Clearance w eGFR > 60 POC Glucometer 115 Random Glucose 161 H Calcium 8.1 L Total Bilirubin 0.2 AST 19 D ALT 30 D Alkaline Phosphatase 135 H Total Protein 6.6 Albumin 2.7 L Urine Color Urine Appearance Urine pH Ur Specific [place] Urine Protein Urine Glucose (UA) Urine Ketones Urine Blood Urine Nitrite Urine Bilirubin Urine Urobilinogen Ur Leukocyte Esterase Urine WBC (Auto) Urine RBC (Auto) Ur Epithelial Cells RPR Titer Nonreactive HIV 1&2 Antibody Screen HIV P24 Antigen 11/13/17 11/13/17 11/14/17 16:12 21:40 06:15 WBC RBC Hgb Hct MCV MCH MCHC RDW Plt Count MPV Sodium Potassium Chloride Carbon Dioxide Anion Gap BUN Creatinine Creat Clearance w eGFR POC Glucometer 404 218 344 Random Glucose Calcium Total Bilirubin AST ALT Alkaline Phosphatase Total Protein Albumin Urine Color Urine Appearance Urine pH Ur Specific [place] Urine Protein Urine Glucose (UA) Urine Ketones Urine Blood Urine Nitrite Urine Bilirubin Urine Urobilinogen Ur Leukocyte Esterase Urine WBC (Auto) Urine RBC (Auto) Ur Epithelial Cells RPR Titer HIV 1&2 Antibody Screen HIV P24 Antigen 11/14/17 11/14/17 11/14/17 10:56 16:18 21:30 WBC RBC Hgb Hct MCV MCH MCHC RDW Plt Count MPV Sodium Potassium Chloride Carbon Dioxide Anion Gap BUN Creatinine Creat Clearance w eGFR POC Glucometer 111 249 428 Random Glucose Calcium Total Bilirubin AST ALT Alkaline Phosphatase Total Protein Albumin Urine Color Urine Appearance Urine pH Ur Specific [place] Urine Protein Urine Glucose (UA) Urine Ketones Urine Blood Urine Nitrite Urine Bilirubin Urine Urobilinogen Ur Leukocyte Esterase Urine WBC (Auto) Urine RBC (Auto) Ur Epithelial Cells RPR Titer HIV 1&2 Antibody Screen HIV P24 Antigen 11/15/17 11/15/17 11/15/17 06:29 16:33 21:10 WBC RBC Hgb Hct MCV MCH MCHC RDW Plt Count MPV Sodium Potassium Chloride Carbon Dioxide Anion Gap BUN Creatinine Creat Clearance w eGFR POC Glucometer 167 387 191 Random Glucose Calcium Total Bilirubin AST ALT Alkaline Phosphatase Total Protein Albumin Urine Color Urine Appearance Urine pH Ur Specific [place] Urine Protein Urine Glucose (UA) Urine Ketones Urine Blood Urine Nitrite Urine Bilirubin Urine Urobilinogen Ur Leukocyte Esterase Urine WBC (Auto) Urine RBC (Auto) Ur Epithelial Cells RPR Titer HIV 1&2 Antibody Screen HIV P24 Antigen 11/16/17 06:33 WBC RBC Hgb Hct MCV MCH MCHC RDW Plt Count MPV Sodium Potassium Chloride Carbon Dioxide Anion Gap BUN Creatinine Creat Clearance w eGFR POC Glucometer 239 Random Glucose Calcium Total Bilirubin AST ALT Alkaline Phosphatase Total Protein Albumin Urine Color Urine Appearance Urine pH Ur Specific [place] Urine Protein Urine Glucose (UA) Urine Ketones Urine Blood Urine Nitrite Urine Bilirubin Urine Urobilinogen Ur Leukocyte Esterase Urine WBC (Auto) Urine RBC (Auto) Ur Epithelial Cells RPR Titer HIV 1&2 Antibody Screen HIV P24 Antigen Labs reviewed - Treatment Hospital Course: Detox Protocol Followed, Detoxed Safely, Responded well, Discharged Condition Good, Rehab Referral Accepted - Medication Discharge Medications: Ambulatory Orders metFORMIN HCL [Glucophage -] 1,000 mg PO BID@0700,1630 #120 mg 07/13/17 Insulin Glargine,Hum.rec.anlog [Lantus Solostar PEN -] 25 units SQ HS 30 Days ins 07/21/17 - Diagnosis (1) Alcohol dependence with uncomplicated withdrawal Status: Acute (2) Anemia Status: Chronic Qualifiers: Anemia type: unspecified type Qualified Code(s): D64.9 - Anemia, unspecified (3) Cannabis dependence Status: Chronic (4) DM Diabetes mellitus type 2 Status: Chronic (5) Drug-induced mood disorder Status: Acute (6) Eczema Status: Chronic Qualifiers: Eczema type: flexural Qualified Code(s): L20.82 - Flexural eczema (7) GERD (gastroesophageal reflux disease) Status: Chronic Qualifiers: Esophagitis presence: without esophagitis Qualified Code(s): K21.9 - Gastro -esophageal reflux disease without esophagitis (8) Nicotine dependence Status: Chronic Qualifiers: Nicotine product type: cigarettes Substance use status: uncomplicated Qualified Code(s): F17.210 - Nicotine dependence, cigarettes, uncomplicated (9) depression Status: Chronic - AMA Did Patient Leave Against Medical Advice: No (F/U with PCP post rehab)
== END 2017-11-16 11:29 | disposition other institution (70) | DRG 774 ==
LOC: YASAS 15:47 → Y3N 19:43
PROVIDERS: ADMIT Surgery; ATTEND Surgery
PROC: HZ2ZZZZ Detoxification Services for Substance Abuse Treatment (ICD-10-PCS; principal; 2017-11-12)
DX: F10.230 Alcohol dependence with withdrawal, uncomplicated (principal); F14.20 Cocaine dependence, uncomplicated; F16.10 Hallucinogen abuse, uncomplicated; F17.210 Nicotine dependence, cigarettes, uncomplicated; F19.24 Other psychoactive substance dependence with psychoactive substance-induced mood disorder; F32.9 Major depressive disorder, single episode, unspecified; F25.9 Schizoaffective disorder, unspecified; D64.9 Anemia, unspecified; E11.9 Type 2 diabetes mellitus without complications; L20.82 Flexural eczema; K21.9 Gastro-esophageal reflux disease without esophagitis; Z79.4 Long term (current) use of insulin; Z79.84 Long term (current) use of oral hypoglycemic drugs
CPT/HCPCS: 36415; 80053; 81003; 81015; 82962; 85027; 86593; 87389; 93005; 93010

== ENCOUNTER 2018-07-11 08:32 | Inpatient (IN) | payer OTHER ==
[2018-07-11 09:18] VITALS: BMI 25.0
--- NOTE | 2018-07-11 10:41 | HP ---
CIWA Score Nausea/Vomitin Muscle Tremors: 2 Anxiety: 2 Agitation: 2 Paroxysmal Sweats: 1-Minimal Palms Moist Orientation: 0-Oriented Tacttile Disturbances: 1-Very Mild Itch/Numbness Auditory Disturbances: 1-Very Mild Visual Disturbances: 0-None Headache: 2-Mild CIWA-Ar Total Score: 13 - Admission Criteria OASAS Guidelines: Admission for Medically Managed Detox: Requires at least one of the followin. CIWA greater than 12 2. Seizures within the past 24 hours 3. Delirium tremens within the past 24 hours 4. Hallucinations within the past 24 hours 5. Acute intervention needed for co occurring medical disorder 6. Acute intervention needed for co occurring psychiatric disorder 7. Severe withdrawal that cannot be handled at a lower level of care (continued vomiting, continued diarrhea, abnormal vital signs) requiring intravenous medication and/or fluids 8. Admission ROS S - HPI Chief Complaint: i need help to stop drinking alcohol,xanax,cocaine,marijuana and k2 Allergies/Adverse Reactions: Allergies Allergy/AdvReac Type Severity Reaction Status Date / Time No Known Allergies Allergy Verified 07/11/18 11:51 History of Present Illness: this 52 years old male with alcohol,xanax,cocaine,marijuana,k2,requested help to stop,withdrawal symptom, multiple detox in the past ,but keep relapsing last detox [facility] 11/12/17 to 11/16/17,rehab 11/16/17 to 11/30/17 syncope alcohol related iddm nicotine dependence 4 cigarette/day,do not need nicotine replacement longest period of sobriety 3 years plan to go to rehab after detox Exam Limitations: No Limitations - Ebola screening Have you traveled outside of the country in the last 21 days: No (N) Have you had contact with anyone from an Ebola affected area: No Have you been sick,other than usual withdrawal symptoms: No Do you have a fever: No - Review of Systems Constitutional: Loss of Appetite, Malaise, Night Sweats, Changes in sleep, Weakness, Unintentional Wgt. Loss EENT: reports: Nose Congestion Respiratory: reports: No Symptoms reported Cardiac: reports: No Symptoms Reported GI: reports: Nausea, Poor Appetite, Abdominal cramping : reports: No Symptoms Reported Musculoskeletal: reports: Back Pain, Muscle Pain Integumentary: reports: Dryness Neuro: reports: Headache, Tremors Endocrine: reports: No Symptoms Reported (iddm) Hematology: reports: No Symptoms Reported Psychiatric: reports: No Sypmtoms Reported, Judgement Intact, Mood/Affect Appropiate, Orientated x3 Other Systems: Reviewed and Negative Patient History - Patient Medical History Hx Anemia: No Hx Asthma: No Hx Chronic Obstructive Pulmonary Disease (COPD): No Hx Cancer: No Hx Cardiac Disorders: No Hx Congestive Heart Failure: No Hx Hypertension: No Hx Hypercholesterolemia: No Hx Pacemaker: No HX Cerebrovascular Accident: No Hx Seizures: No Hx Dementia: No Hx Diabetes: Yes (iddm last medicated 2 days ago) Hx Gastrointestinal Disorders: No Hx Liver Disease: No Hx Genitourinary Disorders: No Hx Sexually Transmitted Disorders: No Hx Renal Disease (ESRD): No Hx Thyroid Disease: No Hx Human Immunodeficiency Virus (HIV): No (Negative 2018) Hx Hepatitis C: No Hx Depression: Yes Hx Suicide Attempt: No Hx Bipolar Disorder: Yes (Not on medication) Hx Schizophrenia: No Other Medical History: no suicidal,no homicidal - Patient Surgical History Past Surgical History: Yes Hx Neurologic Surgery: No Hx Cataract Extraction: No Hx Cardiac Surgery: No Hx Lung Surgery: No Hx Breast Surgery: No Hx Breast Biopsy: No Hx Abdominal Surgery: No Hx Appendectomy: No Hx Cholecystectomy: No Hx Genitourinary Surgery: No Hx Section: No Hx Orthopedic Surgery: No Other Surgical History: right inguinal hernia repair in 2007 Anesthesia Reaction: No - PPD History Previous Implant?: Yes Documented Results: Negative w/proof Implanted On Prior R Admission?: Yes Date: 11/14/17 Results: 0 mm PPD to be Administered?: No - Smoking Cessation Smoking history: Current every day smoker Have you smoked in the past 12 months: Yes Aproximately how many cigarettes per day: 4 Cigars Per Day: 0 Hx Chewing Tobacco Use: No Initiated information on smoking cessation: Yes 'Breaking Loose' booklet given: 07/11/18 - Substance & Tx. History Hx Alcohol Use: Yes Hx Substance Use: Yes Substance Use Type: Alcohol, Cocaine, Marijuana, Tranquilizers - Substances Abused Alcohol Route: Oral Frequency: Daily Amount used: 2 pints of vodka/2 of 40 ozs of beer Age of first use: 15 Date of Last Use: 07/10/18 Cocaine Route: Inhalation Frequency: Daily Amount used: 50$ Age of first use: 15 Date of Last Use: 07/10/18 Marijuana/Hashish Route: Smoking Frequency: Daily Amount used: 20$ Age of first use: 15 Date of Last Use: 07/10/18 Alprazolam (Xanax) Route: Oral Frequency: 1-2 times per week Amount used: 2 mgs Age of first use: 50 Date of Last Use: 07/04/18 k2 Route: Smoking Frequency: Daily Amount used: 20$ Age of first use: 49 Date of Last Use: 07/10/18 Family Disease History - Family Disease History Family History: Denies Family Disease History: Diabetes: Grandparent Admission Physical Exam S - Vital Signs Vital Signs: Vital Signs - 24 hr 07/11/18 09:02 Temperature 97.9 F Pulse Rate 97 H Respiratory 18 Rate Blood Pressure 145/90 - Physical General Appearance: Yes: Moderate Distress, Tremorous, Irritable, Sweating, Anxious HEENTM: Yes: Normal ENT Inspection, TC, Pharynx Normal Respiratory: Yes: Lungs Clear, Normal Breath Sounds, No Respiratory Distress Neck: Yes: Within Normal Limits, Supple, Trachea in good position Breast: Yes: Within Normal Limits Cardiology: Yes: Within Normal Limits, Regular Rhythm, Regular Rate, S1, S2 Abdominal: Yes: Within Normal Limits, Normal Bowel Sounds, Non Tender, Flat, Soft Genitourinary: Yes: Within Normal Limits Musculoskeletal: Yes: Back pain, Muscle Pain Extremities: Yes: Within Normal Limits, Normal Range of Motion, Tremors, Other ( tinea pedis) Neurological: Yes: project manager retail II-XII NML intact, Fully Oriented, Alert, Motor Strength 5/5 Integumentary: Yes: Dry Lymphatic: Yes: Within Normal Limits - Diagnostic (1) Alcohol dependence with uncomplicated withdrawal Current Visit: No Status: Acute (2) Xanax use disorder, mild, abuse Current Visit: Yes Status: Acute (3) Syncope Current Visit: No Status: Active (4) Cocaine dependence Current Visit: No Status: Acute (5) DM Diabetes mellitus type 2 Current Visit: No Status: Chronic (6) K2 DEPENDENCE Current Visit: No Status: Chronic (7) Nicotine dependence Current Visit: No Status: Chronic Qualifiers: Nicotine product type: cigarettes Substance use status: uncomplicated Qualified Code(s): F17.210 - Nicotine dependence, cigarettes, uncomplicated (8) Tinea pedis Current Visit: No Status: Chronic Qualifiers: (9) Bipolar disorder Current Visit: Yes Status: Acute Cleared for Admission S - Detox or Rehab [facility] Level of Care: Medically Managed (ativan detox requested by patient) [facility] Breath Alcohol Content Breath Alcohol Content: 0.049 Urine Drug Screen - Results Drug Screen Negative: No Urine Drug Screen Results: THC-Marijuana, GUERRERO-Cocaine Inpatient Rehab Admission - Rehab Decision to Admit Inpatient rehab admission?: No
[2018-07-11] MEDS ORDERED: MELATONIN 5 MG TABLETS PO PRN (10:56)
[2018-07-11] MEDS ORDERED: METHOCARBAMOL 500 MG TABLET PO PRN (10:56)
[2018-07-11] MEDS ORDERED: MAGNESIUM CITRATE 300 ML BOTTLE PO PRN (10:56)
[2018-07-11] MEDS ORDERED: LORazepam 1 MG TABLET PO PRN (10:56)
[2018-07-11] MEDS ORDERED: BISMUTH SUBSALICYLATE 524 MG/30 ML UD PO PRN (10:56)
[2018-07-11] MEDS ORDERED: MAG HYDROX/AL HYDROX/SIMETH 30 ML UNIT-DOSE CUP PO PRN (10:56)
[2018-07-11] MEDS ORDERED: MENTHOL/PHENOL 1 EACH UD MM PRN (10:56)
[2018-07-11] MEDS ORDERED: IBUPROFEN 400 MG TABLET (FP) PO PRN (10:56)
[2018-07-11] MEDS ORDERED: hydrOXYzine PAMOATE 25 MG CAPSULE (FP) PO PRN (10:56)
[2018-07-11] MEDS ORDERED: ACETAMINOPHEN 325 MG TABLET (FP) PO PRN ×2 (10:56)
[2018-07-11] MEDS ORDERED: MAGNESIUM HYDROX 2400MG/30ML ORAL SUSPENSION 30 ML CUP PO PRN (10:56)
[2018-07-11] MEDS ORDERED: INSULIN (NOVOLOG) ASPART 100 UNITS/ML 10ML VIAL ONE ×2 (16:58→21:54)
[2018-07-11] MEDS: metFORMIN HCL 500 MG TABLET (FP) PO SCH (17:24)
[2018-07-11] MEDS: INSULIN (NOVOLOG) ASPART 100 UNITS/ML 10ML VIAL SQ SCH ×2 (17:24→22:53)
[2018-07-11] MEDS: LORazepam 2 MG TABLET PO SCH ×2 (17:24→22:49)
[2018-07-11 19:32] LABS: EPI CELLS 0.4 /HPF (0-5); URINE APPEARANCE CLEAR; URINE BACTERIA 1.9 /hpf (NEGATIVE); URINE BILIRUBIN NEGATIVE (NEGATIVE); URINE CASTS 2 /hpf (0-8); URINE COLOR YELLOW; URINE GLUCOSE (UA) 3+ (NEGATIVE); URINE KETONE 1+ (NEGATIVE); URINE LEUK ESTERASE NEGATIVE (NEGATIVE); URINE NITRITE NEGATIVE (NEGATIVE); URINE PROTEIN 3+ (NEGATIVE); URINE RBC 1 /hpf (0-4); URINE WBC 0 /hpf (0-5)
[2018-07-11] MEDS: THIAMINE HCL 100 MG TABLET (FP) PO SCH (22:51)
[2018-07-11] MEDS: INSULIN (LEVEMIR) 100 UNITS/ML UNITS SQ SCH (22:54)
[2018-07-12] MEDS: LORazepam 2 MG TABLET PO SCH ×2 (07:38→10:33)
[2018-07-12] MEDS: metFORMIN HCL 500 MG TABLET (FP) PO SCH ×2 (07:38→17:55)
[2018-07-12] MEDS: INSULIN (NOVOLOG) ASPART 100 UNITS/ML 10ML VIAL SQ SCH ×4 (07:39→22:50)
[2018-07-12] MEDS: PRENATAL VITAMINS W/ FOLIC ACID TABLET (FP) PO SCH (10:33)
[2018-07-12 10:38] LABS: ALBUMIN 2.8 g/dl (3.4-5.0); ALK PHOS 98 U/L (45-117); ANION GAP 4 MMOL/L (8-16); BILIRUBIN,TOTAL 0.2 mg/dL (0.2-1); BLOOD UREA NITROGEN 8 mg/dL (7-18); CHLORIDE 105 mmol/L (98-107); CO2 29 mmol/L (21-32); CREATININE 0.8 mg/dL (0.55-1.3); GLUCOSE,RANDOM 104 mg/dL (74-106); POTASSIUM 3.8 mmol/L (3.5-5.1); SGOT/AST 21 U/L (15-37); SGPT/ALT 43 U/L (13-61); SODIUM 138 mmol/L (136-145); TOT PROT 6.5 g/dl (6.4-8.2)
[2018-07-12 10:52] LABS: HEMATOCRIT 36.5 % (35.4-49); HEMOGLOBIN 11.6 GM/dL (11.7-16.9); MCH 23.4 pg (25.7-33.7); MCHC 31.7 g/dl (32.0-35.9); MEAN CELL VOLUME 73.8 fl (80-96); MEAN PLT VOLUME 9.5 fl (7.5-11.1); PLATELET COUNT 225 K/MM3 (134-434); RBC 4.95 M/mm3 (4.00-5.60); RDW 15.7 % (11.9-15.9); WHITE BLOOD COUNT 5.8 K/mm3 (4.0-10.0)
--- NOTE | 2018-07-12 14:13 | PN ---
[facility] CIWA - CIWA Score Nausea/Vomitin-No Nausea/No Vomiting Muscle Tremors: 1-None Visible, but [place] Anxiety: 4-Mod. Anxious/Guarded Agitation: 3 Paroxysmal Sweats: 2 Orientation: 0-Oriented Tacttile Disturbances: 0-None Auditory Disturbances: 0-None Visual Disturbances: 0-None Headache: 0-None Present CIWA-Ar Total Score: 10 S Progress Note (SOAP) Subjective: I feeling fine agitation anxiety interrupted sleep Objective: 07/12/18 14:11 Vital Signs Temperature 97.5 F L 07/12/18 10:04 Pulse Rate 76 07/12/18 10:04 Respiratory Rate 18 07/12/18 10:04 Blood Pressure 134/73 07/12/18 10:04 O2 Sat by Pulse Oximetry (%) Laboratory Tests 07/11/18 07/11/18 07/11/18 12:32 15:47 16:25 WBC RBC Hgb Hct MCV MCH MCHC RDW Plt Count MPV Sodium Potassium Chloride Carbon Dioxide Anion Gap BUN Creatinine Creat Clearance w eGFR POC Glucometer 429 300 Random Glucose Calcium Total Bilirubin AST ALT Alkaline Phosphatase Total Protein Albumin Urine Color Yellow Urine Appearance Clear Urine pH 5.0 Ur Specific [place] 1.024 Urine Protein 3+ H Urine Glucose (UA) 3+ H Urine Ketones 1+ H Urine Blood Negative Urine Nitrite Negative Urine Bilirubin Negative Urine Urobilinogen 1.0 Ur Leukocyte Esterase Negative Urine WBC (Auto) 0 Urine RBC (Auto) 1 Urine Casts (Auto) 2 U Epithel Cells (Auto) 0.4 Urine Bacteria (Auto) 1.9 RPR Titer 07/11/18 07/12/18 07/12/18 21:43 07:04 07:30 WBC 5.8 RBC 4.95 Hgb 11.6 L Hct 36.5 MCV 73.8 L MCH 23.4 L MCHC 31.7 L RDW 15.7 Plt Count 225 MPV 9.5 Sodium Potassium Chloride Carbon Dioxide Anion Gap BUN Creatinine Creat Clearance w eGFR POC Glucometer 184 112 Random Glucose Calcium Total Bilirubin AST ALT Alkaline Phosphatase Total Protein Albumin Urine Color Urine Appearance Urine pH Ur Specific [place] Urine Protein Urine Glucose (UA) Urine Ketones Urine Blood Urine Nitrite Urine Bilirubin Urine Urobilinogen Ur Leukocyte Esterase Urine WBC (Auto) Urine RBC (Auto) Urine Casts (Auto) U Epithel Cells (Auto) Urine Bacteria (Auto) RPR Titer 03/31/19 03/31/19 07:30 07:30 WBC RBC Hgb Hct MCV MCH MCHC RDW Plt Count MPV Sodium 138 Potassium 3.8 Chloride 105 Carbon Dioxide 29 Anion Gap 4 L BUN 8 Creatinine 0.8 Creat Clearance w eGFR 102.32 POC Glucometer Random Glucose 104 Calcium 8.0 L Total Bilirubin 0.2 AST 21 ALT 43 Alkaline Phosphatase 98 Total Protein 6.5 Albumin 2.8 L Urine Color Urine Appearance Urine pH Ur Specific [place] Urine Protein Urine Glucose (UA) Urine Ketones Urine Blood Urine Nitrite Urine Bilirubin Urine Urobilinogen Ur Leukocyte Esterase Urine WBC (Auto) Urine RBC (Auto) Urine Casts (Auto) U Epithel Cells (Auto) Urine Bacteria (Auto) RPR Titer Nonreactive aaox3 ambulating no acute distress Assessment: 07/12/18 14:12 withdrawal sx Plan: continue detox increase fluids
[2018-07-12] MEDS: LORazepam 1 MG TABLET PO SCH ×2 (17:53→22:50)
[2018-07-12] MEDS: INSULIN (LEVEMIR) 100 UNITS/ML UNITS SQ SCH (22:50)
[2018-07-12] MEDS: THIAMINE HCL 100 MG TABLET (FP) PO SCH (22:51)
[2018-07-13] MEDS: LORazepam 1 MG TABLET PO SCH (07:12)
[2018-07-13] MEDS: metFORMIN HCL 500 MG TABLET (FP) PO SCH ×2 (07:13→17:02)
[2018-07-13] MEDS: INSULIN (NOVOLOG) ASPART 100 UNITS/ML 10ML VIAL SQ SCH ×4 (07:16→22:26)
--- NOTE | 2018-07-13 10:10 | CONSULT ---
[facility] Psychiatric Consult - Data Date of interview: 07/13/18 Admission source: Self-referred Identifying data: Mr Zazueta is a 52 years old Black male, unemployed receiving SSI, homeless seeking detox treatment for alcohol, cocaine , benzodiazepine, cannabis Substance Abuse History: Reports history of alcohol, cocaine, xanax, marijuana and k2 use. Refer to addiction counselor's summary for further information Medical History: Significant for GERD, eczema, diabetes mellitus and a history of surgery for right inguinal hernia repair in 2007. 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 He acknowledges being diagnosed with Schizoaffective Disorder in 2005 and has had few previous admissions mostly to [facility]. Reports chronic non adherence to OPD care and medications. Reports that he used to be on Seroquel, Risperdal, Abilify etc. Denies history of suicidal attempt. At present, reports feeling irritable and sleeping poorly. Requests to take Risperdal and Trazadone during this amission course Physical/Sexual Abuse/Trauma History: Denies Mental Status Exam - Mental Status Exam Alert and Oriented to: Time, Place, Person Cognitive Function: Fair Patient Appearance: Disheveled Mood: Depressed, Irritable Affect: Appropriate Patient Behavior: Cooperative (superficially) Speech Pattern: Clear Voice Loudness: Normal Thought Process: Intact, Goal Oriented Hallucinations: Denies Suicidal Ideation: Denies Homicidal Ideation: Denies Insight/Judgement: Fair Sleep: Poorly Appetite: Good Gait/Station: Normal Psychiatric Findings - Problem List ([place] 1, 2,3) (1) Schizoaffective disorder Current Visit: No Status: Chronic (2) Bipolar disorder Current Visit: Yes Status: Ruled-out (3) Substance induced mood disorder Current Visit: Yes Status: Acute (4) Substance-induced sleep disorder Current Visit: Yes Status: Acute (5) Alcohol dependence with uncomplicated withdrawal Current Visit: No Status: Acute (6) Cocaine dependence Current Visit: No Status: Acute (7) Cannabis dependence Current Visit: No Status: Acute (8) Sedative, hypnotic or anxiolytic abuse Current Visit: Yes Status: Acute (9) Nicotine dependence Current Visit: Yes Status: Chronic (10) DM Diabetes mellitus type 2 Current Visit: No Status: Chronic (11) GERD (gastroesophageal reflux disease) Current Visit: Yes Status: Chronic - Initial Treatment Plan Initial Treatment Plan: 1) Start Risperdal 2 mg po HS and Trazadone 100 mg po HS. 2) Continue inpatient detoxification
[2018-07-13] MEDS: PRENATAL VITAMINS W/ FOLIC ACID TABLET (FP) PO SCH (10:32)
[2018-07-13] MEDS: LORazepam 0.5 MG TABLET PO SCH ×2 (10:33→22:24)
[2018-07-13] MEDS ORDERED: INSULIN (NOVOLOG) ASPART 100 UNITS/ML 10ML VIAL ONE ×2 (10:52→22:50)
--- NOTE | 2018-07-13 11:14 | PN ---
[facility] CIWA - CIWA Score Nausea/Vomitin-No Nausea/No Vomiting Muscle Tremors: 3 Anxiety: 3 Agitation: 3 Paroxysmal Sweats: No Perspiration Orientation: 0-Oriented Tacttile Disturbances: 0-None Auditory Disturbances: 0-None Visual Disturbances: 0-None Headache: 0-None Present CIWA-Ar Total Score: 9 S Progress Note (SOAP) Subjective: tired interrupted sleep anxiety Objective: 07/13/18 11:13 Vital Signs Temperature 97.0 F L 07/13/18 08:59 Pulse Rate 82 07/13/18 08:59 Respiratory Rate 18 07/13/18 08:59 Blood Pressure 146/81 07/13/18 08:59 O2 Sat by Pulse Oximetry (%) Laboratory Tests 07/11/18 07/11/18 07/11/18 12:32 15:47 16:25 WBC RBC Hgb Hct MCV MCH MCHC RDW Plt Count MPV Sodium Potassium Chloride Carbon Dioxide Anion Gap BUN Creatinine Creat Clearance w eGFR POC Glucometer 429 300 Random Glucose Calcium Total Bilirubin AST ALT Alkaline Phosphatase Total Protein Albumin Urine Color Yellow Urine Appearance Clear Urine pH 5.0 Ur Specific [place] 1.024 Urine Protein 3+ H Urine Glucose (UA) 3+ H Urine Ketones 1+ H Urine Blood Negative Urine Nitrite Negative Urine Bilirubin Negative Urine Urobilinogen 1.0 Ur Leukocyte Esterase Negative Urine WBC (Auto) 0 Urine RBC (Auto) 1 Urine Casts (Auto) 2 U Epithel Cells (Auto) 0.4 Urine Bacteria (Auto) 1.9 RPR Titer 07/11/18 07/12/18 07/12/18 21:43 07:04 07:30 WBC 5.8 RBC 4.95 Hgb 11.6 L Hct 36.5 MCV 73.8 L MCH 23.4 L MCHC 31.7 L RDW 15.7 Plt Count 225 MPV 9.5 Sodium Potassium Chloride Carbon Dioxide Anion Gap BUN Creatinine Creat Clearance w eGFR POC Glucometer 184 112 Random Glucose Calcium Total Bilirubin AST ALT Alkaline Phosphatase Total Protein Albumin Urine Color Urine Appearance Urine pH Ur Specific [place] Urine Protein Urine Glucose (UA) Urine Ketones Urine Blood Urine Nitrite Urine Bilirubin Urine Urobilinogen Ur Leukocyte Esterase Urine WBC (Auto) Urine RBC (Auto) Urine Casts (Auto) U Epithel Cells (Auto) Urine Bacteria (Auto) RPR Titer 07/12/18 07/12/1819 07:30 07:30 21:53 WBC RBC Hgb Hct MCV MCH MCHC RDW Plt Count MPV Sodium 138 Potassium 3.8 Chloride 105 Carbon Dioxide 29 Anion Gap 4 L BUN 8 Creatinine 0.8 Creat Clearance w eGFR 102.32 POC Glucometer 254 Random Glucose 104 Calcium 8.0 L Total Bilirubin 0.2 AST 21 ALT 43 Alkaline Phosphatase 98 Total Protein 6.5 Albumin 2.8 L Urine Color Urine Appearance Urine pH Ur Specific [place] Urine Protein Urine Glucose (UA) Urine Ketones Urine Blood Urine Nitrite Urine Bilirubin Urine Urobilinogen Ur Leukocyte Esterase Urine WBC (Auto) Urine RBC (Auto) Urine Casts (Auto) U Epithel Cells (Auto) Urine Bacteria (Auto) RPR Titer Nonreactive 07/13/18 07/13/18 07:10 10:45 WBC RBC Hgb Hct MCV MCH MCHC RDW Plt Count MPV Sodium Potassium Chloride Carbon Dioxide Anion Gap BUN Creatinine Creat Clearance w eGFR POC Glucometer 152 218 Random Glucose Calcium Total Bilirubin AST ALT Alkaline Phosphatase Total Protein Albumin Urine Color Urine Appearance Urine pH Ur Specific [place] Urine Protein Urine Glucose (UA) Urine Ketones Urine Blood Urine Nitrite Urine Bilirubin Urine Urobilinogen Ur Leukocyte Esterase Urine WBC (Auto) Urine RBC (Auto) Urine Casts (Auto) U Epithel Cells (Auto) Urine Bacteria (Auto) RPR Titer aaox3 ambulating no acute distress Assessment: 07/13/18 11:13 withdrawal sx Plan: continue detox increase fluids d/c in am
[2018-07-13] MEDS ORDERED: LORazepam 0.5 MG TABLET PO PRN (17:00)
[2018-07-13] MEDS ORDERED: LORazepam 0.5 MG TABLET PO SCH (17:00)
[2018-07-13] MEDS: THIAMINE HCL 100 MG TABLET (FP) PO SCH (22:24)
[2018-07-13] MEDS: INSULIN (LEVEMIR) 100 UNITS/ML UNITS SQ SCH (22:27)
[2018-07-14] MEDS: metFORMIN HCL 500 MG TABLET (FP) PO SCH (07:18)
[2018-07-14] MEDS: INSULIN (NOVOLOG) ASPART 100 UNITS/ML 10ML VIAL SQ SCH ×2 (07:18→11:43)
--- NOTE | 2018-07-14 09:10 | DS ---
[facility] Detox Discharge Summary Admission Date: 07/11/18 Discharge Date: 07/14/18 - History Present History: Alcohol Dependence, Cannabis Dependence, Cocaine Dependence, Sedative Dependence, Pcp Dependence - Physical Exam Results Vital Signs: Vital Signs Temperature 97.7 F 07/14/18 06:00 Pulse Rate 85 07/14/18 06:00 Respiratory Rate 18 07/14/18 06:00 Blood Pressure 137/91 07/14/18 06:00 O2 Sat by Pulse Oximetry (%) - Treatment Hospital Course: Detox Protocol Followed, Detoxed Safely, Responded well, Discharged Condition Good, Rehab Referral Accepted - Medication Discharge Medications: Ambulatory Orders Insulin Glargine,Hum.rec.anlog [Lantus Solostar PEN -] 25 units SQ HS 30 Days ins 11/28/17 Pen Needle, Diabetic [Novofine 32] 1 each MC DAILY #1 box 11/28/17 metFORMIN HCL [Glucophage -] 1,000 mg PO BID@0700,1630 #120 mg 11/28/17 - Diagnosis (1) Sedative, hypnotic or anxiolytic abuse Current Visit: Yes Status: Chronic (2) Substance induced mood disorder Current Visit: Yes Status: Acute (3) Substance-induced sleep disorder Current Visit: Yes Status: Acute (4) Xanax use disorder, mild, abuse Current Visit: Yes Status: Chronic (5) GERD (gastroesophageal reflux disease) Current Visit: Yes Status: Chronic Qualifiers: Esophagitis presence: without esophagitis Qualified Code(s): K21.9 - Gastro -esophageal reflux disease without esophagitis (6) Nicotine dependence Current Visit: Yes Status: Chronic Qualifiers: Nicotine product type: cigarettes Substance use status: uncomplicated Qualified Code(s): F17.210 - Nicotine dependence, cigarettes, uncomplicated (7) Bipolar disorder Current Visit: Yes Status: Ruled-out (8) Syncope Current Visit: No Status: Active (9) Alcohol dependence with uncomplicated withdrawal Current Visit: Yes Status: Chronic (10) Cannabis dependence Current Visit: Yes Status: Chronic (11) Cocaine dependence Current Visit: Yes Status: Chronic (12) Drug-induced mood disorder Current Visit: No Status: Acute (13) PCP (phencyclidine) abuse Current Visit: Yes Status: Chronic (14) Substance induced mood disorder Current Visit: No Status: Acute (15) Substance induced mood disorder Current Visit: No Status: Acute (16) gerd Current Visit: Yes Status: Chronic (17) Anemia Current Visit: No Status: Chronic Qualifiers: Anemia type: unspecified type Qualified Code(s): D64.9 - Anemia, unspecified (18) DM Diabetes mellitus type 2 Current Visit: No Status: Chronic (19) Eczema Current Visit: Yes Status: Chronic Qualifiers: Eczema type: unspecified Qualified Code(s): L30.9 - Dermatitis, unspecified (20) GERD (gastroesophageal reflux disease) Current Visit: Yes Status: Chronic Qualifiers: Esophagitis presence: without esophagitis Qualified Code(s): K21.9 - Gastro -esophageal reflux disease without esophagitis (21) K2 DEPENDENCE Current Visit: Yes Status: Chronic (22) Nicotine dependence Current Visit: Yes Status: Chronic Qualifiers: Nicotine product type: cigarettes Substance use status: uncomplicated Qualified Code(s): F17.210 - Nicotine dependence, cigarettes, uncomplicated (23) Schizoaffective disorder Current Visit: No Status: Chronic (24) depression Current Visit: No Status: Chronic - AMA Did Patient Leave Against Medical Advice: No (referred to rehab.)
[2018-07-14] MEDS: PRENATAL VITAMINS W/ FOLIC ACID TABLET (FP) PO SCH (10:12)
[2018-07-14] MEDS: LORazepam 0.5 MG TABLET PO SCH (10:12)
[2018-07-14] MEDS ORDERED: INSULIN (NOVOLOG) ASPART 100 UNITS/ML 10ML VIAL ONE (11:39)
[2018-07-14 14:16] VITALS: BP 155/93; PULSE 86; TEMP 98.2
== END 2018-07-14 14:35 | disposition other institution (70) | DRG 774 ==
LOC: YASAS 08:32 → Y6N 11:48
PROVIDERS: ADMIT Surgery; ATTEND Surgery
PROC: HZ2ZZZZ Detoxification Services for Substance Abuse Treatment (ICD-10-PCS; principal; 2018-07-11)
DX: F10.230 Alcohol dependence with withdrawal, uncomplicated (principal); F13.230 Sedative, hypnotic or anxiolytic dependence with withdrawal, uncomplicated; F14.20 Cocaine dependence, uncomplicated; F12.20 Cannabis dependence, uncomplicated; F16.20 Hallucinogen dependence, uncomplicated; F19.20 Other psychoactive substance dependence, uncomplicated; F17.210 Nicotine dependence, cigarettes, uncomplicated; F19.24 Other psychoactive substance dependence with psychoactive substance-induced mood disorder; F19.282 Other psychoactive substance dependence with psychoactive substance-induced sleep disorder; F25.9 Schizoaffective disorder, unspecified; F32.9 Major depressive disorder, single episode, unspecified; K21.9 Gastro-esophageal reflux disease without esophagitis; L30.9 Dermatitis, unspecified; D64.9 Anemia, unspecified; E11.9 Type 2 diabetes mellitus without complications; Z79.84 Long term (current) use of oral hypoglycemic drugs; B35.3 Tinea pedis
CPT/HCPCS: 36415; 80053; 81003; 82962; 85027; 86593

== ENCOUNTER 2018-07-14 14:45 | Inpatient (IN) | payer OTHER ==
--- NOTE | 2018-07-14 14:43 | HP ---
[facility] Rehab Assess/Revision - Admission History Admitted to Rehab from: [facility] Date of Admission to Rehab: 07/14/2018 - Findings Detox History & Physical reviewed: Yes Concur with findings: Yes Inpatient Rehab Admission - Rehab Decision to Admit Inpatient rehab admission?: Yes - Initial Determination Are CD services needed?: Yes Free of communicable disease: Yes Not in need of hospitalization: Yes - Rehab Admission Criteria Previous failed treatment: Yes Poor recovery environment: Yes Comorbidities: Yes Lacks judgement: Yes Patient is meeting Inpatient Rehab admission criteria:: Yes
[~2018-07-14 14:45] MED LIST: ACETAMINOPHEN 325 MG TABLET (FP) PO PRN; IBUPROFEN 400 MG TABLET (FP) PO PRN; LOPERAMIDE HCL 2 MG CAPSULE PO PRN; MAG HYDROX/AL HYDROX/SIMETH 30 ML UNIT-DOSE CUP PO PRN; MAGNESIUM CITRATE 300 ML BOTTLE PO PRN; MAGNESIUM HYDROX 2400MG/30ML ORAL SUSPENSION 30 ML CUP PO PRN; MENTHOL/PHENOL 1 EACH UD MM PRN; NICOTINE POLACRILEX 4 MG GUM BUC PRN; P-EPHED 60MG/TRIPROLIDI 2.5MG TABLET PO PRN; guaiFENesin 200 MG/10 ML 10 ML UNIT-DOSE CUPS PO PRN; hydrOXYzine PAMOATE 50 MG CAPSULE (FP) PO PRN
[2018-07-14] MEDS ORDERED: LISINOPRIL 10 MG TABLET (FP) PO ONE (15:44)
--- NOTE | 2018-07-14 15:45 | PN ---
S Progress Note Note: pt failed to mention he has a h/o of HTN; researched with his outside pharmacy [facility] and pt p/u lisinopril 10mg june 2018. will start pt with Lisinopril 10mg today.
[2018-07-14] MEDS: HYDROCHLOROTHIAZIDE 12.5 MG CAPSULE (FP) PO SCH (16:01)
[2018-07-14] MEDS: metFORMIN HCL 500 MG TABLET (FP) PO SCH (16:46)
[2018-07-14] MEDS ORDERED: INSULIN (NOVOLOG) ASPART 100 UNITS/ML 10ML VIAL ONE (16:48)
[2018-07-14] MEDS: INSULIN SLIDING SCALE (NOVOLOG) 1 VIAL SQ SCH (16:49)
[2018-07-14] MEDS: THIAMINE HCL 100 MG TABLET (FP) PO SCH (22:02)
[2018-07-14] MEDS: INSULIN (LEVEMIR) 100 UNITS/ML UNITS SQ SCH (22:03)
[2018-07-14] MEDS: MELATONIN 5 MG TABLETS PO PRN (22:03)
[2018-07-15] MEDS: metFORMIN HCL 500 MG TABLET (FP) PO SCH ×2 (07:49→16:53)
[2018-07-15] MEDS: INSULIN SLIDING SCALE (NOVOLOG) 1 VIAL SQ SCH ×3 (07:52→16:56)
[2018-07-15] MEDS: LISINOPRIL 10 MG TABLET (FP) PO SCH (10:38)
[2018-07-15] MEDS: PRENATAL VITAMINS W/ FOLIC ACID TABLET (FP) PO SCH (10:38)
[2018-07-15] MEDS: HYDROCHLOROTHIAZIDE 12.5 MG CAPSULE (FP) PO SCH (10:38)
[2018-07-15] MEDS: NICOTINE 21 MG/24 HOURS TOPICAL PATCH TD SCH (10:39)
[2018-07-15] MEDS ORDERED: INSULIN (NOVOLOG) ASPART 100 UNITS/ML 10ML VIAL ONE ×2 (12:04→16:55)
[2018-07-15] MEDS: THIAMINE HCL 100 MG TABLET (FP) PO SCH (21:41)
[2018-07-15] MEDS: INSULIN (LEVEMIR) 100 UNITS/ML UNITS SQ SCH (21:41)
[2018-07-16] MEDS: metFORMIN HCL 500 MG TABLET (FP) PO SCH ×2 (06:51→16:55)
[2018-07-16] MEDS: INSULIN SLIDING SCALE (NOVOLOG) 1 VIAL SQ SCH ×3 (07:03→16:58)
[2018-07-16] MEDS: PRENATAL VITAMINS W/ FOLIC ACID TABLET (FP) PO SCH (10:24)
[2018-07-16] MEDS: HYDROCHLOROTHIAZIDE 12.5 MG CAPSULE (FP) PO SCH (10:24)
[2018-07-16] MEDS: LISINOPRIL 10 MG TABLET (FP) PO SCH (10:24)
[2018-07-16] MEDS: NICOTINE 21 MG/24 HOURS TOPICAL PATCH TD SCH (10:24)
--- NOTE | 2018-07-16 11:11 | CONSULT ---
[facility] Psychiatric Consult - Data Date of interview: 07/16/18 Admission source: 6N Identifying data: Mr Zazueta is a 52 years old Black male, unemployed receiving SSI, homeless seeking detox treatment for alcohol, cocaine , benzodiazepine, cannabis Substance Abuse History: Reports history of alcohol, cocaine, xanax, marijuana and k2 use. Refer to addiction counselor's summary for further information Medical History: Significant for GERD, eczema, diabetes mellitus and a history of surgery for right inguinal hernia repair in 2007. smokes 4 cigarettes daily Psychiatric History: Significant for GERD, eczema, diabetes mellitus and a history of surgery for right inguinal hernia repair in 2007. smokes 4 cigarettes daily. 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 He acknowledges being diagnosed with Schizoaffective Disorder in 2005 and has had few previous admissions mostly to [facility]. Reports chronic non adherence to OPD care and medications. Reports that he used to be on Seroquel, Risperdal, Abilify etc. Denies history of suicidal attempt. At present, reports feeling irritable and sleeping poorly. Requests to take Risperdal and Trazadone during this amission course Physical/Sexual Abuse/Trauma History: Denies history of emotional, physical or sexual abuse as well as DV relationship. No service Additional Comment: Reports history of 5 previous arrests including 4 felony convictions.Denies being on parole/probation Mental Status Exam - Mental Status Exam Alert and Oriented to: Time, Place, Person Cognitive Function: Fair Patient Appearance: Well Groomed Mood: Depressed Affect: Appropriate Patient Behavior: Cooperative Speech Pattern: Clear Voice Loudness: Normal Thought Process: Intact, Goal Oriented Thought Disorder: Not Present Hallucinations: Denies Suicidal Ideation: Denies Homicidal Ideation: Denies Insight/Judgement: Fair Sleep: Poorly Appetite: Good Muscle strength/Tone: Normal Gait/Station: Normal Psychiatric Findings - Problem List ([place] 1, 2,3) (1) Schizoaffective disorder Current Visit: No Status: Chronic (2) Bipolar disorder Current Visit: No Status: Ruled-out (3) Substance induced mood disorder Current Visit: No Status: Acute (4) Substance-induced sleep disorder Current Visit: No Status: Acute (5) Alcohol dependence with uncomplicated withdrawal Current Visit: No Status: Acute (6) Cocaine dependence Current Visit: No Status: Acute (7) Cannabis dependence Current Visit: No Status: Acute (8) Nicotine dependence Current Visit: No Status: Chronic Qualifiers: Nicotine product type: cigarettes Substance use status: uncomplicated Qualified Code(s): F17.210 - Nicotine dependence, cigarettes, uncomplicated (9) Anemia Current Visit: No Status: Chronic Qualifiers: Anemia type: unspecified type Qualified Code(s): D64.9 - Anemia, unspecified (10) DM Diabetes mellitus type 2 Current Visit: No Status: Chronic (11) Eczema Current Visit: No Status: Chronic Qualifiers: Eczema type: unspecified Qualified Code(s): L30.9 - Dermatitis, unspecified (12) GERD (gastroesophageal reflux disease) Current Visit: No Status: Chronic Qualifiers: Esophagitis presence: without esophagitis Qualified Code(s): K21.9 - Gastro -esophageal reflux disease without esophagitis - Initial Treatment Plan Initial Treatment Plan: 1) Continue Risperdal 2 mg po HS and Trazadone 100 mg po HS. 2) Continue inpatient rehabilitation
[2018-07-16] MEDS ORDERED: INSULIN (NOVOLOG) ASPART 100 UNITS/ML 10ML VIAL ONE ×2 (11:51→16:57)
[2018-07-16] MEDS: INSULIN (LEVEMIR) 100 UNITS/ML UNITS SQ SCH (21:51)
[2018-07-16] MEDS: THIAMINE HCL 100 MG TABLET (FP) PO SCH (21:52)
[2018-07-17] MEDS: INSULIN SLIDING SCALE (NOVOLOG) 1 VIAL SQ SCH ×3 (06:06→16:46)
[2018-07-17] MEDS: metFORMIN HCL 500 MG TABLET (FP) PO SCH ×2 (06:06→16:45)
[2018-07-17] MEDS: HYDROCHLOROTHIAZIDE 12.5 MG CAPSULE (FP) PO SCH (10:23)
[2018-07-17] MEDS: PRENATAL VITAMINS W/ FOLIC ACID TABLET (FP) PO SCH (10:23)
[2018-07-17] MEDS: LISINOPRIL 10 MG TABLET (FP) PO SCH (10:23)
[2018-07-17] MEDS: NICOTINE 21 MG/24 HOURS TOPICAL PATCH TD SCH (10:24)
[2018-07-17] MEDS ORDERED: MAGNESIUM SULFATE 16 OZ CRYSTALS TP ONE (11:20)
--- NOTE | 2018-07-17 11:26 | PN ---
S Progress Note Note: PATIENT SEEN FOR C/O FUNGAL RASH TO FEET. PATIENT HAS HX OF ATHLETES FOOT AND TREATED WITH TINACTIN AND EPSOM SALT SOAKS. Vital Signs Temperature 97.8 F 07/17/18 07:08 Pulse Rate 81 07/17/18 07:08 Respiratory Rate 18 07/17/18 07:08 Blood Pressure 141/94 07/17/18 07:08 O2 Sat by Pulse Oximetry (%) PE: ALERT AND ORIENTED X 3 SKIN WARM AND DRY EXT FULL ROM, NO SWELLING, + FUNGAL RASH IN BETWEEN TOES AMB AD ADAN A/P: ATHLETES FOOT WILL ORDER TINACTIN CREAM AND EPSOM SALT SOAK CONTINUE TO MONITOR CLINICALLY
[2018-07-17] MEDS ORDERED: INSULIN (NOVOLOG) ASPART 100 UNITS/ML 10ML VIAL ONE (12:06)
[2018-07-17] MEDS: TOLNAFTATE 1% CREAM 15 GM TUBE TP SCH ×2 (12:11→21:42)
[2018-07-17] MEDS: THIAMINE HCL 100 MG TABLET (FP) PO SCH (21:39)
[2018-07-17] MEDS: INSULIN (LEVEMIR) 100 UNITS/ML UNITS SQ SCH (21:42)
[2018-07-17] MEDS: traZODone HCL 100 MG TABLET (FP) PO SCH (21:42)
[2018-07-17] MEDS: risperiDONE 2 MG TABLET PO SCH (21:42)
[2018-07-18] MEDS: metFORMIN HCL 500 MG TABLET (FP) PO SCH ×2 (07:11→16:38)
[2018-07-18] MEDS: INSULIN SLIDING SCALE (NOVOLOG) 1 VIAL SQ SCH ×3 (07:12→16:40)
[2018-07-18] MEDS: HYDROCHLOROTHIAZIDE 12.5 MG CAPSULE (FP) PO SCH (10:15)
[2018-07-18] MEDS: PRENATAL VITAMINS W/ FOLIC ACID TABLET (FP) PO SCH (10:15)
[2018-07-18] MEDS: LISINOPRIL 10 MG TABLET (FP) PO SCH (10:15)
[2018-07-18] MEDS: TOLNAFTATE 1% CREAM 15 GM TUBE TP SCH ×2 (10:15→21:54)
[2018-07-18] MEDS: NICOTINE 21 MG/24 HOURS TOPICAL PATCH TD SCH (10:16)
[2018-07-18] MEDS ORDERED: INSULIN (NOVOLOG) ASPART 100 UNITS/ML 10ML VIAL ONE ×2 (11:43→16:39)
[2018-07-18] MEDS: risperiDONE 2 MG TABLET PO SCH (21:53)
[2018-07-18] MEDS: THIAMINE HCL 100 MG TABLET (FP) PO SCH (21:53)
[2018-07-18] MEDS: traZODone HCL 100 MG TABLET (FP) PO SCH (21:53)
[2018-07-18] MEDS: INSULIN (LEVEMIR) 100 UNITS/ML UNITS SQ SCH (21:54)
[2018-07-19] MEDS: metFORMIN HCL 500 MG TABLET (FP) PO SCH ×2 (06:36→16:49)
[2018-07-19] MEDS: INSULIN SLIDING SCALE (NOVOLOG) 1 VIAL SQ SCH ×3 (06:37→16:51)
[2018-07-19] MEDS: LISINOPRIL 10 MG TABLET (FP) PO SCH (10:36)
[2018-07-19] MEDS: PRENATAL VITAMINS W/ FOLIC ACID TABLET (FP) PO SCH (10:36)
[2018-07-19] MEDS: HYDROCHLOROTHIAZIDE 12.5 MG CAPSULE (FP) PO SCH (10:36)
[2018-07-19] MEDS: NICOTINE 21 MG/24 HOURS TOPICAL PATCH TD SCH (10:36)
[2018-07-19] MEDS: TOLNAFTATE 1% CREAM 15 GM TUBE TP SCH ×2 (10:37→22:25)
[2018-07-19] MEDS ORDERED: INSULIN (NOVOLOG) ASPART 100 UNITS/ML 10ML VIAL ONE (11:54)
--- NOTE | 2018-07-19 21:46 | PN ---
S Progress Note Note: Vital Signs Temperature 98.1 F 07/19/18 21:30 Pulse Rate 90 07/19/18 21:30 Respiratory Rate 20 07/19/18 21:30 Blood Pressure 162/89 07/19/18 21:30 O2 Sat by Pulse Oximetry (%)
[2018-07-19] MEDS: THIAMINE HCL 100 MG TABLET (FP) PO SCH (22:20)
[2018-07-19] MEDS: risperiDONE 2 MG TABLET PO SCH (22:20)
[2018-07-19] MEDS: MELATONIN 5 MG TABLETS PO PRN (22:20)
[2018-07-19] MEDS: traZODone HCL 100 MG TABLET (FP) PO SCH (22:20)
[2018-07-19] MEDS: INSULIN (LEVEMIR) 100 UNITS/ML UNITS SQ SCH (22:25)
[2018-07-20] MEDS ORDERED: INSULIN (NOVOLOG) ASPART 100 UNITS/ML 10ML VIAL ONE ×2 (07:23→11:36)
[2018-07-20] MEDS: metFORMIN HCL 500 MG TABLET (FP) PO SCH ×2 (07:31→16:46)
[2018-07-20] MEDS: INSULIN SLIDING SCALE (NOVOLOG) 1 VIAL SQ SCH ×3 (07:32→16:47)
[2018-07-20] MEDS: PRENATAL VITAMINS W/ FOLIC ACID TABLET (FP) PO SCH (10:15)
[2018-07-20] MEDS: HYDROCHLOROTHIAZIDE 12.5 MG CAPSULE (FP) PO SCH (10:15)
[2018-07-20] MEDS: NICOTINE 21 MG/24 HOURS TOPICAL PATCH TD SCH (10:15)
[2018-07-20] MEDS: LISINOPRIL 10 MG TABLET (FP) PO SCH (10:16)
[2018-07-20] MEDS: TOLNAFTATE 1% CREAM 15 GM TUBE TP SCH ×2 (10:42→21:08)
--- NOTE | 2018-07-20 12:13 | PN ---
[facility] Progress Note Note: PATIENT C/O ITCHING AND RASH TO LOWER ABDOMINAL FOLD. SKIN WARM AND DRY, NO OPEN AREAS VISIBLE. +MILD REDNESS DUE TO SCRATCHING. WILL ORDER HYDROCORTISONE 0.5% CREAM BID TO AREA. MONITOR CLINICALLY. Vital Signs Period Temp Pulse Resp BP Sys/Green Pulse Ox Last 24 Hr 97.5 F-98.6 F 80-102 18-20 136-163/81-90
[2018-07-20] MEDS: HYDROCORTISONE 0.5% TOPICAL CREAM 30 GM TUBE TP SCH ×2 (12:36→22:18)
[2018-07-20] MEDS: traZODone HCL 100 MG TABLET (FP) PO SCH (21:07)
[2018-07-20] MEDS: INSULIN (LEVEMIR) 100 UNITS/ML UNITS SQ SCH (21:07)
[2018-07-20] MEDS: risperiDONE 2 MG TABLET PO SCH (21:08)
[2018-07-20] MEDS: THIAMINE HCL 100 MG TABLET (FP) PO SCH (21:08)
[2018-07-21] MEDS: INSULIN SLIDING SCALE (NOVOLOG) 1 VIAL SQ SCH ×3 (07:04→16:55)
[2018-07-21] MEDS: metFORMIN HCL 500 MG TABLET (FP) PO SCH ×2 (07:10→16:53)
[2018-07-21] MEDS: HYDROCHLOROTHIAZIDE 12.5 MG CAPSULE (FP) PO SCH (10:09)
[2018-07-21] MEDS: PRENATAL VITAMINS W/ FOLIC ACID TABLET (FP) PO SCH (10:09)
[2018-07-21] MEDS: HYDROCORTISONE 0.5% TOPICAL CREAM 30 GM TUBE TP SCH ×2 (10:09→21:30)
[2018-07-21] MEDS: LISINOPRIL 10 MG TABLET (FP) PO SCH (10:09)
[2018-07-21] MEDS: NICOTINE 21 MG/24 HOURS TOPICAL PATCH TD SCH (10:10)
[2018-07-21] MEDS: TOLNAFTATE 1% CREAM 15 GM TUBE TP SCH ×2 (10:10→21:55)
[2018-07-21] MEDS ORDERED: INSULIN (NOVOLOG) ASPART 100 UNITS/ML 10ML VIAL ONE ×2 (11:34→22:05)
[2018-07-21] MEDS: THIAMINE HCL 100 MG TABLET (FP) PO SCH (21:29)
[2018-07-21] MEDS: risperiDONE 2 MG TABLET PO SCH (21:31)
[2018-07-21] MEDS: traZODone HCL 100 MG TABLET (FP) PO SCH (21:31)
[2018-07-21] MEDS: INSULIN (LEVEMIR) 100 UNITS/ML UNITS SQ SCH (21:32)
[2018-07-21] MEDS: MELATONIN 5 MG TABLETS PO PRN (23:31)
[2018-07-22] MEDS: metFORMIN HCL 500 MG TABLET (FP) PO SCH ×2 (06:23→16:30)
[2018-07-22] MEDS: INSULIN SLIDING SCALE (NOVOLOG) 1 VIAL SQ SCH ×3 (06:24→16:32)
[2018-07-22] MEDS: HYDROCHLOROTHIAZIDE 12.5 MG CAPSULE (FP) PO SCH (10:17)
[2018-07-22] MEDS: LISINOPRIL 10 MG TABLET (FP) PO SCH (10:17)
[2018-07-22] MEDS: PRENATAL VITAMINS W/ FOLIC ACID TABLET (FP) PO SCH (10:17)
[2018-07-22] MEDS: TOLNAFTATE 1% CREAM 15 GM TUBE TP SCH ×2 (10:18→21:47)
[2018-07-22] MEDS: HYDROCORTISONE 0.5% TOPICAL CREAM 30 GM TUBE TP SCH ×2 (10:18→21:47)
[2018-07-22] MEDS: NICOTINE 21 MG/24 HOURS TOPICAL PATCH TD SCH (10:19)
[2018-07-22] MEDS ORDERED: INSULIN (NOVOLOG) ASPART 100 UNITS/ML 10ML VIAL ONE (11:38)
[2018-07-22] MEDS: traZODone HCL 100 MG TABLET (FP) PO SCH (21:44)
[2018-07-22] MEDS: THIAMINE HCL 100 MG TABLET (FP) PO SCH (21:44)
[2018-07-22] MEDS: MELATONIN 5 MG TABLETS PO PRN (21:45)
[2018-07-22] MEDS: risperiDONE 2 MG TABLET PO SCH (21:45)
[2018-07-22] MEDS: INSULIN (LEVEMIR) 100 UNITS/ML UNITS SQ SCH (21:47)
[2018-07-23] MEDS: metFORMIN HCL 500 MG TABLET (FP) PO SCH (06:28)
[2018-07-23] MEDS: INSULIN SLIDING SCALE (NOVOLOG) 1 VIAL SQ SCH ×2 (06:29→12:06)
[2018-07-23 07:05] VITALS: TEMP 97.5
[2018-07-23] MEDS: HYDROCHLOROTHIAZIDE 12.5 MG CAPSULE (FP) PO SCH (10:02)
[2018-07-23] MEDS: LISINOPRIL 10 MG TABLET (FP) PO SCH (10:02)
[2018-07-23] MEDS: PRENATAL VITAMINS W/ FOLIC ACID TABLET (FP) PO SCH (10:02)
[2018-07-23] MEDS: NICOTINE 21 MG/24 HOURS TOPICAL PATCH TD SCH (10:03)
[2018-07-23] MEDS: TOLNAFTATE 1% CREAM 15 GM TUBE TP SCH (10:03)
[2018-07-23] MEDS: HYDROCORTISONE 0.5% TOPICAL CREAM 30 GM TUBE TP SCH (10:03)
[2018-07-23 10:10] VITALS: BP 138/90; PULSE 94
[2018-07-23] MEDS ORDERED: INSULIN (NOVOLOG) ASPART 100 UNITS/ML 10ML VIAL ONE (12:07)
--- NOTE | 2018-07-23 13:49 | PN ---
[facility] Progress Note (SOAP) Subjective: Patient wants to leave today for personal reasons. Objective: 07/23/18 13:45 Vital Signs (72 hours) 07/21/18 07/21/18 07/21/18 00:30 03:30 06:43 Temperature 98.1 F Pulse Rate 82 Respiratory 18 18 18 Rate Blood Pressure 144/90 07/21/18 07/22/18 07/22/18 10:00 00:30 03:30 Temperature Pulse Rate 83 Respiratory 18 18 Rate Blood Pressure 153/90 07/22/18 07/22/18 07/23/18 07:01 09:30 00:30 Temperature 97.3 F L Pulse Rate 80 90 Respiratory 18 18 18 Rate Blood Pressure 145/92 138/87 07/23/18 07/23/18 07/23/18 03:30 07:04 09:30 Temperature 97.5 F L Pulse Rate 84 94 H Respiratory 18 18 18 Rate Blood Pressure 156/95 138/90 07/23/18 13:45 A+O x3, CN 2-12 intact, no neurological deficits noted, Lungs clear, Heart rate regular, s1s2 audible. 07/23/18 13:47 Laboratory 07/16/18 07/16/18 07/17/18 16:55 21:51 06:05 POC Glucometer 238 UNITS UNITS 258 UNITS UNITS 133 UNITS UNITS (80-120) (80-120) (80-120) 07/17/18 07/17/18 07/17/18 11:58 16:42 21:40 POC Glucometer 243 UNITS UNITS 125 UNITS UNITS 223 UNITS UNITS (80-120) (80-120) (80-120) 07/18/18 07/18/18 07/18/18 07:09 11:41 16:37 POC Glucometer 101 UNITS UNITS 287 UNITS UNITS 205 UNITS UNITS (80-120) (80-120) (80-120) 07/18/18 07/19/18 07/19/18 21:52 06:35 11:50 POC Glucometer 184 UNITS UNITS 104 UNITS UNITS 221 UNITS UNITS (80-120) (80-120) (80-120) 07/19/18 07/19/18 07/20/18 16:49 20:59 06:20 POC Glucometer 274 UNITS UNITS 194 UNITS UNITS 135 UNITS UNITS (80-120) (80-120) (80-120) 07/20/18 07/20/18 07/20/18 11:32 16:45 21:05 POC Glucometer 203 UNITS UNITS 279 UNITS UNITS 206 UNITS UNITS (80-120) (80-120) (80-120) 07/21/18 07/21/18 07/21/18 06:00 11:32 16:53 POC Glucometer 129 UNITS UNITS 238 UNITS UNITS 167 UNITS UNITS (80-120) (80-120) (80-120) 07/21/18 07/22/18 07/22/18 21:32 06:22 11:35 POC Glucometer 230 UNITS UNITS 120 UNITS UNITS 194 UNITS UNITS (80-120) (80-120) (80-120) 07/22/18 07/22/18 07/23/18 16:31 21:46 06:28 POC Glucometer 202 UNITS UNITS 259 UNITS UNITS 137 UNITS UNITS (80-120) (80-120) (80-120) 07/23/18 12:05 POC Glucometer 181 UNITS UNITS (80-120) Assessment: Medically stable for discharge Diagnoses: Cocaine abuse, chronic Diabetes, type 2 GERD K2 dependence Cannabis dependence, chronic 07/23/18 13:57 Plan: patient states he will return to nursing home and make his own arrangements for aftercare and primary care. prescriptions transmitted to his pharmacy.
--- NOTE | 2018-07-23 14:06 | PN ---
[facility] Progress Note Note: Patient is scheduled for discharged today. Scripts for 30 days supply of medications(Risperdal, Trazadone) are electronically transmitted to [facility] at [address] [place] [id number]
== END 2018-07-23 14:10 | disposition home or self-care (01) | DRG 772 ==
LOC: YASAS 14:45 → Y5N 14:46 → Y3W 07-19 22:10
PROVIDERS: ADMIT Neuromusculoskeletal Medicine & OMM; ATTEND Neuromusculoskeletal Medicine & OMM
PROC: HZ42ZZZ Group Counseling for Substance Abuse Treatment, Cognitive-Behavioral (ICD-10-PCS; principal; 2018-07-14)
DX: F10.20 Alcohol dependence, uncomplicated (principal); F14.20 Cocaine dependence, uncomplicated; F12.20 Cannabis dependence, uncomplicated; F17.210 Nicotine dependence, cigarettes, uncomplicated; F25.9 Schizoaffective disorder, unspecified; F31.9 Bipolar disorder, unspecified; F19.24 Other psychoactive substance dependence with psychoactive substance-induced mood disorder; F19.282 Other psychoactive substance dependence with psychoactive substance-induced sleep disorder; I10 Essential (primary) hypertension; D64.9 Anemia, unspecified; E11.9 Type 2 diabetes mellitus without complications; B35.3 Tinea pedis; L30.9 Dermatitis, unspecified; K21.9 Gastro-esophageal reflux disease without esophagitis; Z79.4 Long term (current) use of insulin
CPT/HCPCS: 82962

== ENCOUNTER 2019-03-20 14:25 | Inpatient (IN) | payer OTHER ==
[2019-03-20 17:08] VITALS: BMI 25.1
--- NOTE | 2019-03-20 18:31 | HP ---
CIWA Score Nausea/Vomitin Muscle Tremors: 2 Anxiety: 3 Agitation: 3 Paroxysmal Sweats: 1-Minimal Palms Moist Orientation: 0-Oriented Tacttile Disturbances: 1-Very Mild Itch/Numbness Auditory Disturbances: 0-None Visual Disturbances: 0-None Headache: 2-Mild CIWA-Ar Total Score: 14 - Admission Criteria [facility]ASAS Guidelines: Admission for Medically Managed Detox: Requires at least one of the followin. CIWA greater than 12 2. Seizures within the past 24 hours 3. Delirium tremens within the past 24 hours 4. Hallucinations within the past 24 hours 5. Acute intervention needed for co occurring medical disorder 6. Acute intervention needed for co occurring psychiatric disorder 7. Severe withdrawal that cannot be handled at a lower level of care (continued vomiting, continued diarrhea, abnormal vital signs) requiring intravenous medication and/or fluids 8. Admitting History and Physical - Admission Chief Complaint: i need help to stop driknig alcohol,cocaine and k2 History Source: Patient Limitations to Obtaining History: No Limitations - Past Medical History Cardiovascular: Yes: HTN Endocrine: Yes: Diabetes Mellitus - Past Surgical History Past Surgical History: Yes: Hernia Repair Additional Past Surgical History: right inguinal hernia in 2007 - Smoking History Smoking history: Current every day smoker Have you smoked in the past 12 months: Yes Aproximately how many cigarettes per day: 4 - Alcohol/Substance Use Hx Alcohol Use: Yes History of Substance Use: reports: Cocaine, Marijuana - Social History Usual Living Arrangement: Yes: Other ([facility]) Occupation: unemployed,collect ssi History of Recent Travel: No Other Social History: 53 years old male with alcohol dependence,cocaine abused, matijuna abused,k2 abused,syncope,no seizure,. living in [facility],amoke 4 cigarette,need in patient detox from alcohol,cocaine and marijuana abused Admission [facility] Chief Complaint: i need help to stop drinking alcohol,cocaine and marijuana abused,k2 Allergies/Adverse Reactions: Allergies Allergy/AdvReac Type Severity Reaction Status Date / Time No Known Allergies Allergy Verified 03/20/19 16:51 History of Present Illness: this 53 years old male with alcohol,cocaine,marijuana dependence and k2 abused, seeking detox,withdrawal symptom, multiple admissions in detox,last [facility] 07/12/18 to 07/14/18 detox,rehab 07/14/18 to 07/23/18 syncope denied seizure type 2 dm.also on insulin hypertension nicotine dependence 4 cigarette longest period of sobriety 3 years plan for rehab after detox bipolar disorder,not on medication - Ebola screening Have you traveled outside of the country in the last 21 days: No Have you had contact with anyone from an Ebola affected area: No - Review of Systems Constitutional: Loss of Appetite, Night Sweats, Changes in sleep EENT: reports: Tearing, Nose Congestion Respiratory: reports: No Symptoms reported Cardiac: reports: No Symptoms Reported GI: reports: Nausea, Poor Appetite, Abdominal cramping : reports: No Symptoms Reported Musculoskeletal: reports: Back Pain, Muscle Pain Neuro: reports: Headache, Tremors Endocrine: reports: No Symptoms Reported Hematology: reports: No Symptoms Reported Psychiatric: reports: No Sypmtoms Reported, Judgement Intact, Mood/Affect Appropiate, Orientated x3, other (bipolar disorder) Patient History - Patient Medical History Hx Anemia: No Hx Asthma: No Hx Chronic Obstructive Pulmonary Disease (COPD): No Hx Cancer: No Hx Cardiac Disorders: No Hx Congestive Heart Failure: No Hx Hypertension: Yes (on lisinopril 10 mgs po daily last 2 days) Hx Hypercholesterolemia: No Hx Pacemaker: No HX Cerebrovascular Accident: No Hx Seizures: No Hx Dementia: No Hx Diabetes: Yes (on metformin 1000 mgs po bid,levimir 20 units at night) Hx Gastrointestinal Disorders: No Hx Liver Disease: No Hx Genitourinary Disorders: No Hx Sexually Transmitted Disorders: No Hx Renal Disease (ESRD): No Hx Thyroid Disease: No Hx Human Immunodeficiency Virus (HIV): No (Negative 2017) Hx Hepatitis C: No Hx Depression: Yes Hx Suicide Attempt: No Hx Bipolar Disorder: Yes (Not on medication) Hx Schizophrenia: Yes (SCHIZOAFFECTIVE DISORDER) Other Medical History: no suicidal,no homicidal - Patient Surgical History Past Surgical History: Yes Hx Neurologic Surgery: No Hx Cataract Extraction: No Hx Cardiac Surgery: No Hx Lung Surgery: No Hx Breast Surgery: No Hx Breast Biopsy: No Hx Abdominal Surgery: No Hx Appendectomy: No Hx Cholecystectomy: No Hx Genitourinary Surgery: No Hx Section: No Hx Orthopedic Surgery: No Other Surgical History: right inguinal hernia repair in 2007 Anesthesia Reaction: No - PPD History Previous Implant?: Yes Documented Results: Negative w/o proof Implanted On Prior R Admission?: Yes Date: 11/14/17 Results: 0 mm PPD to be Administered?: Yes - Smoking Cessation Smoking history: Current every day smoker Have you smoked in the past 12 months: Yes Aproximately how many cigarettes per day: 4 Cigars Per Day: 0 Hx Chewing Tobacco Use: No Initiated information on smoking cessation: Yes 'Breaking Loose' booklet given: 03/20/19 - Substance & Tx. History Hx Alcohol Use: Yes Hx Substance Use: Yes Substance Use Type: Alcohol, Cocaine, Marijuana Hx Substance Use Treatment: Yes ([facility] 07/11/18 to 07/14/18,rehab 07/14/18 to 03/02) - Substances abused K2/Spice Substance route: Smoking Frequency: Daily Amount used: 2 sticks Age of first use: 51 Date of last use: 03/18/19 Cocaine Substance route: Smoking Frequency: Daily Amount used: 2 grams Age of first use: 19 Date of last use: 03/18/19 Alcohol Substance route: Oral Frequency: Daily Amount used: 2 of 40 ounces of beer or 1 pint of liqour/ Age of first use: 15 Date of last use: 03/20/19 Admission Physical Exam S - Vital Signs Vital Signs: Vital Signs - 24 hr 03/20/19 17:00 Temperature 97.1 F L Pulse Rate 90 Respiratory 18 Rate Blood Pressure 135/83 - Physical General Appearance: Yes: Moderate Distress, Tremorous, Irritable, Sweating, Anxious HEENTM: Yes: Within Normal Limits, Normal ENT Inspection, TC Respiratory: Yes: Within Normal Limits, Lungs Clear, Normal Breath Sounds Neck: Yes: Within Normal Limits, Supple, Trachea in good position Breast: Yes: Within Normal Limits Cardiology: Yes: Within Normal Limits, Regular Rhythm, Regular Rate, S1, S2 Abdominal: Yes: Within Normal Limits, Normal Bowel Sounds, Non Tender, Flat, Soft Genitourinary: Yes: Within Normal Limits Musculoskeletal: Yes: Back pain, Muscle Pain Extremities: Yes: Tremors Neurological: Yes: facilities engineering manager II-XII NML intact, Fully Oriented, Alert, Motor Strength 5/5 Integumentary: Yes: Dry Lymphatic: Yes: Within Normal Limits - Diagnostic (1) Syncope Current Visit: No Status: Active (2) Alcohol dependence with uncomplicated withdrawal Current Visit: No Status: Acute (3) Cannabis dependence Current Visit: No Status: Acute (4) Cocaine dependence Current Visit: No Status: Acute (5) DM Diabetes mellitus type 2 Current Visit: No Status: Chronic (6) Nicotine dependence Current Visit: No Status: Chronic Qualifiers: Nicotine product type: cigarettes Substance use status: uncomplicated Qualified Code(s): F17.210 - Nicotine dependence, cigarettes, uncomplicated (7) Bipolar disorder Current Visit: No Status: Ruled-out Cleared for Admission S - Detox or Rehab [facility] Level of Care: Medically Managed (ativan regimen) Breathalyzer - Breathalyzer Breathalyzer: 0 Urine Drug Screen - Test Device Lot number: [id number] Expiration date: 11/10/20 - Control Is test valid?: Yes - Results Drug screen NEGATIVE: No Urine drug screen results: GUERRERO-Cocaine Inpatient Rehab Admission - Rehab Decision to Admit Inpatient rehab admission?: No
[2019-03-20] MEDS ORDERED: NICOTINE POLACRILEX 2 MG GUM BUC PRN (18:49)
[2019-03-20] MEDS ORDERED: MELATONIN 5 MG TABLETS PO PRN (18:49)
[2019-03-20] MEDS ORDERED: hydrOXYzine PAMOATE 25 MG CAPSULE (FP) PO PRN (18:49)
[2019-03-20] MEDS ORDERED: MENTHOL/PHENOL 1 EACH UD MM PRN (18:49)
[2019-03-20] MEDS ORDERED: MAG HYDROX/AL HYDROX/SIMETH 30 ML UNIT-DOSE CUP PO PRN (18:49)
[2019-03-20] MEDS ORDERED: MAGNESIUM HYDROX 2400MG/30ML ORAL SUSPENSION 30 ML CUP PO PRN (18:49)
[2019-03-20] MEDS ORDERED: BISMUTH SUBSALICYLATE 524 MG/30 ML UD PO PRN (18:49)
[2019-03-20] MEDS ORDERED: ACETAMINOPHEN 325 MG TABLET (FP) PO PRN ×2 (18:49)
[2019-03-20] MEDS ORDERED: MAGNESIUM CITRATE 300 ML BOTTLE PO PRN (18:49)
[2019-03-20] MEDS ORDERED: METHOCARBAMOL 500 MG TABLET PO PRN (18:49)
[2019-03-20] MEDS ORDERED: LORazepam 1 MG TABLET PO PRN (18:49)
[2019-03-20] MEDS ORDERED: IBUPROFEN 400 MG TABLET (FP) PO PRN (18:49)
[2019-03-20] MEDS: LISINOPRIL 10 MG TABLET (FP) PO SCH (19:51)
[2019-03-20] MEDS: THIAMINE HCL 100 MG TABLET (FP) PO SCH (21:59)
[2019-03-20] MEDS: INSULIN (LEVEMIR) 100 UNITS/ML UNITS SQ SCH (21:59)
[2019-03-20] MEDS: LORazepam 2 MG TABLET PO SCH (21:59)
[2019-03-20] MEDS: INSULIN SLIDING SCALE (NOVOLOG) 1 VIAL SQ SCH (22:00)
[2019-03-21] MEDS: LORazepam 2 MG TABLET PO SCH ×4 (06:06→22:13)
[2019-03-21] MEDS: INSULIN SLIDING SCALE (NOVOLOG) 1 VIAL SQ SCH ×4 (06:43→22:13)
[2019-03-21] MEDS: metFORMIN HCL 500 MG TABLET (FP) PO SCH ×2 (06:49→17:33)
[2019-03-21] MEDS ORDERED: INSULIN SLIDING SCALE (NOVOLOG) 1 VIAL SQ ONE ×2 (06:51→12:14)
--- NOTE | 2019-03-21 09:24 | CONSULT ---
[facility] Psychiatric Consult - Data Date of interview: 03/21/19 Admission source: [facility] Substance Abuse History: Smoking Cessation. Smoking history: Current every day smoker. Have you smoked in the past 12 months: Yes. Aproximately how many cigarettes per day: 4. Cigars Per Day: 0. Hx Chewing Tobacco Use: No. Initiated information on smoking cessation: Yes. 'Breaking Loose' booklet given : 03/20/19. - Substance & Tx. History. Hx Alcohol Use: Yes. Hx Substance Use : Yes. Substance Use Type: Alcohol, Cocaine, Marijuana. Hx Substance Use Treatment: Yes ([facility] 07/11/18 to 07/14/18,rehab 07/14/18 to 07/23/18). - Substances abused. K2/Spice. Substance route: Smoking. Frequency: Daily. Amount used: 2 sticks. Age of first use: 51. Date of last use: 03/18/19. Cocaine. Substance route: Smoking. Frequency: Daily. Amount used: 2 grams. Age of first use: 19. Date of last use: 03/18/19. Alcohol. Substance route : Oral. Frequency: Daily. Amount used: 2 of 40 ounces of beer or 1 pint of liqour/. Age of first use: 15. Date of last use: 03/20/19
--- NOTE | 2019-03-21 09:33 | CONSULT ---
[facility] Psychiatric Consult - Data Date of interview: 03/21/19 Admission source: [facility] Identifying data: Patient is a 53 year old single male, without children, unemployed, homeless, and is supported by [facility]. This is one of multiple admissions for patient. Patient admitted to for alcohol and cocaine dependence. Substance Abuse History: Smoking Cessation. Smoking history: Current every day smoker. Have you smoked in the past 12 months: Yes. Aproximately how many cigarettes per day: 4. Cigars Per Day: 0. Hx Chewing Tobacco Use: No. Initiated information on smoking cessation: Yes. 'Breaking Loose' booklet given : 03/20/19. - Substance & Tx. History. Hx Alcohol Use: Yes. Hx Substance Use : Yes. Substance Use Type: Alcohol, Cocaine, Marijuana. Hx Substance Use Treatment: Yes ([facility] 07/11/18 to 07/14/18,rehab 07/14/18 to 07/23/18). - Substances abused. K2/Spice. Substance route: Smoking. Frequency: Daily. Amount used: 2 sticks. Age of first use: 51. Date of last use: 03/18/19. Cocaine. Substance route: Smoking. Frequency: Daily. Amount used: 2 grams. Age of first use: 19. Date of last use: 03/18/19. Alcohol. Substance route : Oral. Frequency: Daily. Amount used: 2 of 40 ounces of beer or 1 pint of liqour/. Age of first use: 15. Date of last use: 03/20/19 Medical History: Significant for GERD, eczema, diabetes mellitus and a history of surgery for right inguinal hernia repair in 2007. Psychiatric History: Mr. Solomon's first psychiatric contact was in 2005 after he begun to hear voices and had thoughts to hurt himself. He was admitted to [facility], diagnosed with schizoaffective disorder and prescribed seroquel 100mg. After discharge he continued psychiatric outpatient treatment at [facility]. Throughout the years he reports additional hospitalizations at and most recently at [facility] two years ago after bizzare behavior secondary to drug use. Mr. solomon reports past treatment with risperdal when admitted to detox/rehab faciliites. States the seroquel caused him to gain weight while in rehab in the past. Reports receiving risperdal 2mg last night while at [facility] after seeking admission due to depressed mood. Patient is not currently followed by an outpatient psychiatrist. He denies auditory/visual hallucinations, suicidal/ homicidal ideation. Physical/Sexual Abuse/Trauma History: denies. Mental Status Exam - Mental Status Exam Alert and Oriented to: Time, Place, Person Cognitive Function: Good Patient Appearance: Well Groomed Mood: Withdrawn Affect: Appropriate Patient Behavior: Cooperative Speech Pattern: Appropriate Voice Loudness: Normal Thought Process: Goal Oriented Thought Disorder: Not Present Hallucinations: Denies Suicidal Ideation: Denies Homicidal Ideation: Denies Insight/Judgement: Poor Sleep: Poorly Appetite: Fair Muscle strength/Tone: Normal Gait/Station: Normal Psychiatric Findings - Problem List ([place] 1, 2,3) (1) Alcohol dependence with uncomplicated withdrawal Current Visit: Yes Status: Acute (2) Cannabis dependence Current Visit: Yes Status: Acute (3) Cocaine dependence Current Visit: Yes Status: Acute (4) Schizoaffective disorder Current Visit: Yes Status: Chronic (5) Substance induced mood disorder Current Visit: Yes Status: Acute - Initial Treatment Plan Initial Treatment Plan: Psychoeducation provided. Rehab in progress. Will order Risperdal 2mg HS. Benefits and side effects discussed. Verbal consent given.
[2019-03-21 10:04] LABS: HEMATOCRIT 36.3 % (35.4-49); HEMOGLOBIN 11.4 GM/dL (11.7-16.9); MCH 23.1 pg (25.7-33.7); MCHC 31.4 g/dl (32.0-35.9); MEAN CELL VOLUME 73.6 fl (80-96); MEAN PLT VOLUME 9.7 fl (7.5-11.1); PLATELET COUNT 217 K/MM3 (134-434); RBC 4.93 M/mm3 (4.00-5.60); RDW 17.1 % (11.9-15.9); WHITE BLOOD COUNT 5.7 K/mm3 (4.0-10.0)
[2019-03-21] MEDS: PRENATAL VITAMINS W/ FOLIC ACID TABLET (FP) PO SCH (10:10)
[2019-03-21] MEDS: LISINOPRIL 10 MG TABLET (FP) PO SCH (10:11)
[2019-03-21 10:16] LABS: ALBUMIN 3.1 g/dl (3.4-5.0); BILIRUBIN,TOTAL 0.3 mg/dL (0.2-1); BLOOD UREA NITROGEN 21.3 mg/dL (7-18); CALCIUM 8.3 mg/dL (8.5-10.1); CREATININE 0.9 mg/dL (0.55-1.3); POTASSIUM 4.5 mmol/L (3.5-5.1); TOT PROT 6.9 g/dl (6.4-8.2)
[2019-03-21] MEDS ORDERED: FLU VACCINE QUAD 60 MCG/0.5 ML (MDV 19-20) IM ONE (12:00)
--- NOTE | 2019-03-21 15:38 | PN ---
S CIWA - CIWA Score Nausea/Vomitin-Mild Nausea/No Vomiting Muscle Tremors: 4-Moderate,w/Arms Extend Anxiety: 3 Agitation: 1-Slight > Activity Paroxysmal Sweats: 2 Orientation: 0-Oriented Tacttile Disturbances: 0-None Auditory Disturbances: 0-None Visual Disturbances: 0-None Headache: 2-Mild CIWA-Ar Total Score: 13 S Progress Note (SOAP) Subjective: 53 years old male admitted on 03/20/19 for alcohol withdrawal sx management treated wtih ativan detox regimen resting on bed feeling tired limited conversation with staff Objective: 03/21/19 15:39 Vital Signs Temperature 98.1 F 03/21/19 13:06 Pulse Rate 100 H 03/21/19 13:06 Respiratory Rate 18 03/21/19 13:06 Blood Pressure 150/94 03/21/19 13:06 O2 Sat by Pulse Oximetry (%) Laboratory Last Values WBC 5.7 K/mm3 (4.0-10.0) 03/21/19 07:50 RBC 4.93 M/mm3 (4.00-5.60) 03/21/19 07:50 Hgb 11.4 GM/dL (11.7-16.9) L 03/21/19 07:50 Hct 36.3 % (35.4-49) 03/21/19 07:50 MCV 73.6 fl (80-96) L 03/21/19 07:50 MCH 23.1 pg (25.7-33.7) L 03/21/19 07:50 MCHC 31.4 g/dl (32.0-35.9) L 03/21/19 07:50 RDW 17.1 % (11.9-15.9) H 03/21/19 07:50 Plt Count 217 K/MM3 (134-434) 03/21/19 07:50 MPV 9.7 fl (7.5-11.1) 03/21/19 07:50 Sodium 137 mmol/L (136-145) 03/21/19 07:50 Potassium 4.5 mmol/L (3.5-5.1) 03/21/19 07:50 Chloride 103 mmol/L (98-107) 03/21/19 07:50 Carbon Dioxide 28 mmol/L (21-32) 03/21/19 07:50 Anion Gap 5 MMOL/L (8-16) L 03/21/19 07:50 BUN 21.3 mg/dL (7-18) H 03/21/19 07:50 Creatinine 0.9 mg/dL (0.55-1.3) 03/21/19 07:50 Est GFR (CKD-EPI)AfAm 114.21 03/21/19 07:50 Est GFR (CKD-EPI)NonAf 98.54 03/21/19 07:50 POC Glucometer 425 UNITS (80-120) 03/21/19 12:10 Random Glucose 278 mg/dL (74-106) H 03/21/19 07:50 Calcium 8.3 mg/dL (8.5-10.1) L 03/21/19 07:50 Total Bilirubin 0.3 mg/dL (0.2-1) 03/21/19 07:50 AST 19 U/L (15-37) 03/21/19 07:50 ALT 42 U/L (13-61) 03/21/19 07:50 Alkaline Phosphatase 116 U/L (45-117) 03/21/19 07:50 Total Protein 6.9 g/dl (6.4-8.2) 03/21/19 07:50 Albumin 3.1 g/dl (3.4-5.0) L 03/21/19 07:50 RPR Titer Nonreactive (NONREACTIVE) 03/21/19 07:50 lab noted 03/21/19 15:40 long history of diabetes with glucose elevation Assessment: 03/21/19 15:40 alcohol withdrawal sx Plan: continue ativan detox regimen
[2019-03-21] MEDS: THIAMINE HCL 100 MG TABLET (FP) PO SCH (22:13)
[2019-03-21] MEDS: risperiDONE 2 MG TABLET PO SCH (22:13)
[2019-03-21] MEDS: INSULIN (LEVEMIR) 100 UNITS/ML UNITS SQ SCH (22:14)
[2019-03-22] MEDS: LORazepam 1 MG TABLET PO SCH ×4 (05:55→22:18)
[2019-03-22] MEDS: INSULIN SLIDING SCALE (NOVOLOG) 1 VIAL SQ SCH ×4 (07:45→21:04)
[2019-03-22] MEDS: metFORMIN HCL 500 MG TABLET (FP) PO SCH ×2 (07:45→16:48)
--- NOTE | 2019-03-22 10:19 | PN ---
S CIWA - CIWA Score Nausea/Vomitin-Mild Nausea/No Vomiting Muscle Tremors: 3 Anxiety: 2 Agitation: 0-Normal Activity Paroxysmal Sweats: 2 Orientation: 0-Oriented Tacttile Disturbances: 0-None Auditory Disturbances: 0-None Visual Disturbances: 0-None Headache: 2-Mild CIWA-Ar Total Score: 10 S Progress Note (SOAP) Subjective: 53 years old male admitted on 03/20/19 for alcohol withdrawal sx management treated with ativan detox regimen c/o headache from alcohol withdrawal tylenal 650 mg po x 1 Objective: 03/22/19 10:18 Vital Signs Temperature 96.4 F L 03/22/19 09:10 Pulse Rate 87 03/22/19 09:10 Respiratory Rate 18 03/22/19 09:10 Blood Pressure 135/82 03/22/19 09:10 O2 Sat by Pulse Oximetry (%) Laboratory Last Values WBC 5.7 K/mm3 (4.0-10.0) 03/21/19 07:50 RBC 4.93 M/mm3 (4.00-5.60) 03/21/19 07:50 Hgb 11.4 GM/dL (11.7-16.9) L 03/21/19 07:50 Hct 36.3 % (35.4-49) 03/21/19 07:50 MCV 73.6 fl (80-96) L 03/21/19 07:50 MCH 23.1 pg (25.7-33.7) L 03/21/19 07:50 MCHC 31.4 g/dl (32.0-35.9) L 03/21/19 07:50 RDW 17.1 % (11.9-15.9) H 03/21/19 07:50 Plt Count 217 K/MM3 (134-434) 03/21/19 07:50 MPV 9.7 fl (7.5-11.1) 03/21/19 07:50 Sodium 137 mmol/L (136-145) 03/21/19 07:50 Potassium 4.5 mmol/L (3.5-5.1) 03/21/19 07:50 Chloride 103 mmol/L (98-107) 03/21/19 07:50 Carbon Dioxide 28 mmol/L (21-32) 03/21/19 07:50 Anion Gap 5 MMOL/L (8-16) L 03/21/19 07:50 BUN 21.3 mg/dL (7-18) H 03/21/19 07:50 Creatinine 0.9 mg/dL (0.55-1.3) 03/21/19 07:50 Est GFR (CKD-EPI)AfAm 114.21 03/21/19 07:50 Est GFR (CKD-EPI)NonAf 98.54 03/21/19 07:50 POC Glucometer 205 UNITS (80-120) 03/22/19 05:54 Random Glucose 278 mg/dL (74-106) H 03/21/19 07:50 Calcium 8.3 mg/dL (8.5-10.1) L 03/21/19 07:50 Total Bilirubin 0.3 mg/dL (0.2-1) 03/21/19 07:50 AST 19 U/L (15-37) 03/21/19 07:50 ALT 42 U/L (13-61) 03/21/19 07:50 Alkaline Phosphatase 116 U/L (45-117) 03/21/19 07:50 Total Protein 6.9 g/dl (6.4-8.2) 03/21/19 07:50 Albumin 3.1 g/dl (3.4-5.0) L 03/21/19 07:50 RPR Titer Nonreactive (NONREACTIVE) 03/21/19 07:50 lab noted long history of diabetes treated with insulin 03/22/19 10:18 Assessment: 03/22/19 10:19 alcohol withdrawal sx Plan: ativan detox regimen
[2019-03-22] MEDS: PRENATAL VITAMINS W/ FOLIC ACID TABLET (FP) PO SCH (10:27)
[2019-03-22] MEDS: LISINOPRIL 10 MG TABLET (FP) PO SCH (10:28)
[2019-03-22] MEDS ORDERED: ACETAMINOPHEN 325 MG TABLET (FP) PO ONE (11:00)
[2019-03-22] MEDS ORDERED: INSULIN SLIDING SCALE (NOVOLOG) 1 VIAL SQ ONE (21:02)
[2019-03-22] MEDS: INSULIN (LEVEMIR) 100 UNITS/ML UNITS SQ SCH (21:04)
[2019-03-22] MEDS: risperiDONE 2 MG TABLET PO SCH (21:57)
[2019-03-22] MEDS: THIAMINE HCL 100 MG TABLET (FP) PO SCH (22:19)
[2019-03-23] MEDS ORDERED: LORazepam 0.5 MG TABLET PO PRN
[2019-03-23] MEDS: LORazepam 0.5 MG TABLET PO SCH ×4 (05:42→22:05)
[2019-03-23] MEDS: INSULIN SLIDING SCALE (NOVOLOG) 1 VIAL SQ SCH ×4 (06:13→22:03)
[2019-03-23] MEDS ORDERED: INSULIN SLIDING SCALE (NOVOLOG) 1 VIAL SQ ONE (06:13)
[2019-03-23] MEDS: metFORMIN HCL 500 MG TABLET (FP) PO SCH ×2 (06:38→16:30)
[2019-03-23] MEDS: LISINOPRIL 10 MG TABLET (FP) PO SCH (10:15)
[2019-03-23] MEDS: PRENATAL VITAMINS W/ FOLIC ACID TABLET (FP) PO SCH (10:15)
--- NOTE | 2019-03-23 10:45 | PN ---
S CIWA - CIWA Score Nausea/Vomitin-No Nausea/No Vomiting Muscle Tremors: 1-None Visible, but [place] Anxiety: 2 Agitation: 1-Slight > Activity Paroxysmal Sweats: 1-Minimal Palms Moist Orientation: 0-Oriented Tacttile Disturbances: 0-None Auditory Disturbances: 0-None Visual Disturbances: 0-None Headache: 0-None Present CIWA-Ar Total Score: 5 [facility] Progress Note (SOAP) Subjective: 53 years old male admitted on 03/20/19 for alcohol withdrawal sx management treated with ativan detox regimen feeling better today slept through the night less tremor discuss aftercare with staff Objective: 03/23/19 10:43 Vital Signs Temperature 96.3 F L 03/23/19 09:12 Pulse Rate 84 03/23/19 09:12 Respiratory Rate 16 03/23/19 09:12 Blood Pressure 125/76 03/23/19 09:12 O2 Sat by Pulse Oximetry (%) Laboratory Last Values WBC 5.7 K/mm3 (4.0-10.0) 03/21/19 07:50 RBC 4.93 M/mm3 (4.00-5.60) 03/21/19 07:50 Hgb 11.4 GM/dL (11.7-16.9) L 03/21/19 07:50 Hct 36.3 % (35.4-49) 03/21/19 07:50 MCV 73.6 fl (80-96) L 03/21/19 07:50 MCH 23.1 pg (25.7-33.7) L 03/21/19 07:50 MCHC 31.4 g/dl (32.0-35.9) L 03/21/19 07:50 RDW 17.1 % (11.9-15.9) H 03/21/19 07:50 Plt Count 217 K/MM3 (134-434) 03/21/19 07:50 MPV 9.7 fl (7.5-11.1) 03/21/19 07:50 Sodium 137 mmol/L (136-145) 03/21/19 07:50 Potassium 4.5 mmol/L (3.5-5.1) 03/21/19 07:50 Chloride 103 mmol/L (98-107) 03/21/19 07:50 Carbon Dioxide 28 mmol/L (21-32) 03/21/19 07:50 Anion Gap 5 MMOL/L (8-16) L 03/21/19 07:50 BUN 21.3 mg/dL (7-18) H 03/21/19 07:50 Creatinine 0.9 mg/dL (0.55-1.3) 03/21/19 07:50 Est GFR (CKD-EPI)AfAm 114.21 03/21/19 07:50 Est GFR (CKD-EPI)NonAf 98.54 03/21/19 07:50 POC Glucometer 254 UNITS (80-120) 03/23/19 05:44 Random Glucose 278 mg/dL (74-106) H 03/21/19 07:50 Calcium 8.3 mg/dL (8.5-10.1) L 03/21/19 07:50 Total Bilirubin 0.3 mg/dL (0.2-1) 03/21/19 07:50 AST 19 U/L (15-37) 03/21/19 07:50 ALT 42 U/L (13-61) 03/21/19 07:50 Alkaline Phosphatase 116 U/L (45-117) 03/21/19 07:50 Total Protein 6.9 g/dl (6.4-8.2) 03/21/19 07:50 Albumin 3.1 g/dl (3.4-5.0) L 03/21/19 07:50 RPR Titer Nonreactive (NONREACTIVE) 03/21/19 07:50 lab noted glucose elevation long history of diabetes health teaching on dietary regimen 03/23/19 10:45 Assessment: 03/23/19 10:45 alcohol withdrawal sx Plan: ativan regimen
[2019-03-23 15:50] LABS: EPI CELLS 0.6 /HPF (0-5/HPF); HYALINE CASTS 0 /lpf (0-8); URINE APPEARANCE CLEAR; URINE BACTERIA 4.1 /hpf (NEGATIVE); URINE BILIRUBIN NEGATIVE (NEGATIVE); URINE COLOR YELLOW; URINE GLUCOSE (UA) 3+ (NEGATIVE); URINE KETONE NEGATIVE (NEGATIVE); URINE LEUK ESTERASE NEGATIVE (NEGATIVE); URINE NITRITE NEGATIVE (NEGATIVE); URINE PROTEIN 2+ (NEGATIVE); URINE RBC 1 /hpf (0-4); URINE UROBILINOGEN 0.2 mg/dL (0.2-1.0); URINE WBC 1 /hpf (0-5)
[2019-03-23] MEDS: INSULIN (LEVEMIR) 100 UNITS/ML UNITS SQ SCH (22:03)
[2019-03-23] MEDS: THIAMINE HCL 100 MG TABLET (FP) PO SCH (22:04)
[2019-03-23] MEDS: risperiDONE 2 MG TABLET PO SCH (22:05)
[2019-03-24] MEDS ORDERED: LORazepam 0.5 MG TABLET PO ONE (05:00)
[2019-03-24] MEDS: metFORMIN HCL 500 MG TABLET (FP) PO SCH (06:34)
[2019-03-24] MEDS: INSULIN SLIDING SCALE (NOVOLOG) 1 VIAL SQ SCH ×2 (06:34→11:58)
[2019-03-24 09:15] VITALS: TEMP 98.5
[2019-03-24] MEDS: PRENATAL VITAMINS W/ FOLIC ACID TABLET (FP) PO SCH (10:10)
[2019-03-24] MEDS: LISINOPRIL 10 MG TABLET (FP) PO SCH (10:10)
[2019-03-24 11:25] VITALS: BP 126/72; PULSE 85
--- NOTE | 2019-03-24 12:07 | DS ---
[facility] Detox Discharge Summary Admission Date: 03/20/19 Discharge Date: 03/24/19 - History Present History: Alcohol Dependence Additional Comments: 53 years old male admitted on 03/20/19 for alcohol withdrawal sx management treated with ativan detox regimen patient tolerated well alert oriented x 3 cardiac s1s2 regular rate rhythm respiratory clear lung bilaterally on auscultation skin warm and dry - Physical Exam Results Vital Signs: Vital Signs Temperature 98.5 F 03/24/19 09:13 Pulse Rate 85 03/24/19 11:24 Respiratory Rate 18 03/24/19 11:24 Blood Pressure 126/72 03/24/19 11:24 O2 Sat by Pulse Oximetry (%) Pertinent Admission Physical Exam Findings: alcohol withdrawal sx Laboratory Last Values WBC 5.7 K/mm3 (4.0-10.0) 03/21/19 07:50 RBC 4.93 M/mm3 (4.00-5.60) 03/21/19 07:50 Hgb 11.4 GM/dL (11.7-16.9) L 03/21/19 07:50 Hct 36.3 % (35.4-49) 03/21/19 07:50 MCV 73.6 fl (80-96) L 03/21/19 07:50 MCH 23.1 pg (25.7-33.7) L 03/21/19 07:50 MCHC 31.4 g/dl (32.0-35.9) L 03/21/19 07:50 RDW 17.1 % (11.9-15.9) H 03/21/19 07:50 Plt Count 217 K/MM3 (134-434) 03/21/19 07:50 MPV 9.7 fl (7.5-11.1) 03/21/19 07:50 Sodium 137 mmol/L (136-145) 03/21/19 07:50 Potassium 4.5 mmol/L (3.5-5.1) 03/21/19 07:50 Chloride 103 mmol/L (98-107) 03/21/19 07:50 Carbon Dioxide 28 mmol/L (21-32) 03/21/19 07:50 Anion Gap 5 MMOL/L (8-16) L 03/21/19 07:50 BUN 21.3 mg/dL (7-18) H 03/21/19 07:50 Creatinine 0.9 mg/dL (0.55-1.3) 03/21/19 07:50 Est GFR (CKD-EPI)AfAm 114.21 03/21/19 07:50 Est GFR (CKD-EPI)NonAf 98.54 03/21/19 07:50 POC Glucometer 322 UNITS (80-120) 03/24/19 11:14 Random Glucose 278 mg/dL (74-106) H 03/21/19 07:50 Calcium 8.3 mg/dL (8.5-10.1) L 03/21/19 07:50 Total Bilirubin 0.3 mg/dL (0.2-1) 03/21/19 07:50 AST 19 U/L (15-37) 03/21/19 07:50 ALT 42 U/L (13-61) 03/21/19 07:50 Alkaline Phosphatase 116 U/L (45-117) 03/21/19 07:50 Total Protein 6.9 g/dl (6.4-8.2) 03/21/19 07:50 Albumin 3.1 g/dl (3.4-5.0) L 03/21/19 07:50 Urine Color Yellow 03/23/19 13:30 Urine Appearance Clear 03/23/19 13:30 Urine pH 6.0 (5.0-8.0) 03/23/19 13:30 Ur Specific [place] 1.024 (1.010-1.035) 03/23/19 13:30 Urine Protein 2+ (NEGATIVE) H 03/23/19 13:30 Urine Glucose (UA) 3+ (NEGATIVE) H 03/23/19 13:30 Urine Ketones Negative (NEGATIVE) 03/23/19 13:30 Urine Blood Negative (NEGATIVE) 03/23/19 13:30 Urine Nitrite Negative (NEGATIVE) 03/23/19 13:30 Urine Bilirubin Negative (NEGATIVE) 03/23/19 13:30 Urine Urobilinogen 0.2 mg/dL (0.2-1.0) 03/23/19 13:30 Ur Leukocyte Esterase Negative (NEGATIVE) 03/23/19 13:30 Urine WBC (Auto) 1 /hpf (0-5) 03/23/19 13:30 Urine RBC (Auto) 1 /hpf (0-4) 03/23/19 13:30 Urine Casts (Auto) 0 /lpf (0-8) 03/23/19 13:30 U Epithel Cells (Auto) 0.6 /HPF (0-5/HPF) 03/23/19 13:30 Urine Bacteria (Auto) 4.1 /hpf (NEGATIVE) 03/23/19 13:30 RPR Titer Nonreactive (NONREACTIVE) 03/21/19 07:50 lab noted long history of diabetes - Treatment Hospital Course: Detox Protocol Followed, Detoxed Safely, Responded well, Discharged Condition Good, Rehab Referral Accepted Patient has Accepted [facility] - Medication Discharge Medications: Ambulatory Orders Insulin Glargine,Hum.rec.anlog [Lantus Solostar PEN -] 25 units SQ HS 30 Days ins 07/23/18 Pen Needle, Diabetic [Novofine 32] 1 each MC DAILY #1 box 07/23/18 Risperidone [Risperdal -] 2 mg PO HS #30 tablet 07/23/18 metFORMIN HCL [Glucophage -] 1,000 mg PO BID@0700,1630 #120 mg 07/23/18 traZODone HCL [Desyrel -] 100 mg PO HS #30 tablet 07/23/18 Lisinopril 10 mg PO DAILY 03/20/19 - Diagnosis (1) DM Diabetes mellitus type 2 Current Visit: Yes Status: Chronic (2) gerd Current Visit: Yes Status: Chronic (3) Eczema Current Visit: Yes Status: Chronic Qualifiers: Eczema type: unspecified Qualified Code(s): L30.9 - Dermatitis, unspecified (4) Alcohol dependence with uncomplicated withdrawal Current Visit: Yes Status: Acute (5) Substance induced mood disorder Current Visit: Yes Status: Suspected (6) GERD (gastroesophageal reflux disease) Current Visit: Yes Status: Chronic Qualifiers: Esophagitis presence: without esophagitis Qualified Code(s): K21.9 - Gastro -esophageal reflux disease without esophagitis (7) Nicotine dependence Current Visit: Yes Status: Acute Qualifiers: Nicotine product type: cigarettes Substance use status: in withdrawal Qualified Code(s): F17.213 - Nicotine dependence, cigarettes, with withdrawal - AMA Did Patient Leave Against Medical Advice: No CIWA Score - CIWA Score Nausea/Vomitin-No Nausea/No Vomiting Muscle Tremors: None Anxiety: 1-Mildly Anxious Agitation: 1-Slight > Activity Paroxysmal Sweats: No Perspiration Orientation: 0-Oriented Tacttile Disturbances: 0-None Auditory Disturbances: 0-None Visual Disturbances: 0-None Headache: 0-None Present CIWA-Ar Total Score: 2
== END 2019-03-24 12:14 | disposition other institution (70) | DRG 774 ==
LOC: YASAS 14:25 → Y3N 19:02
PROVIDERS: ADMIT Allergy & Immunology; ATTEND Allergy & Immunology
PROC: HZ2ZZZZ Detoxification Services for Substance Abuse Treatment (ICD-10-PCS; principal; 2019-03-20)
DX: F10.230 Alcohol dependence with withdrawal, uncomplicated (principal); F14.20 Cocaine dependence, uncomplicated; F12.20 Cannabis dependence, uncomplicated; F17.210 Nicotine dependence, cigarettes, uncomplicated; F19.24 Other psychoactive substance dependence with psychoactive substance-induced mood disorder; F25.9 Schizoaffective disorder, unspecified; F32.9 Major depressive disorder, single episode, unspecified; I10 Essential (primary) hypertension; E11.9 Type 2 diabetes mellitus without complications; Z79.4 Long term (current) use of insulin; K21.9 Gastro-esophageal reflux disease without esophagitis; L30.9 Dermatitis, unspecified
CPT/HCPCS: 36415; 80053; 81003; 82962; 85027; 86593

== ENCOUNTER 2019-03-24 12:22 | Inpatient (IN) | payer OTHER ==
--- NOTE | 2019-03-24 12:16 | HP ---
CORI [facility]RAFT Rehab Assess/Revision - Admission History Admitted to Rehab [facility]: [facility] Date of Admission to Rehab: 03/24/19 - Findings Detox History & Physical reviewed: Yes Concur with findings: Yes Comments/Additional Findings: trasnferred from detox to rehab admission as per protocol Inpatient Rehab Admission - Rehab Decision to Admit Inpatient rehab admission?: Yes - Initial Determination Are CD services needed?: Yes Free of communicable disease: Yes Not in need of hospitalization: Yes - Rehab Admission Criteria Previous failed treatment: Yes Poor recovery environment: Yes Comorbidities: Yes Lacks judgement: Yes Patient is meeting Inpatient Rehab admission criteria:: Yes
[~2019-03-24 12:22] MED LIST changes: +NICOTINE 7 MG/24 HOURS TOPICAL PATCH TD PRN; -NICOTINE POLACRILEX 4 MG GUM BUC PRN; -hydrOXYzine PAMOATE 50 MG CAPSULE (FP) PO PRN
[2019-03-24] MEDS: metFORMIN HCL 500 MG TABLET (FP) PO SCH (16:55)
[2019-03-24] MEDS: INSULIN SLIDING SCALE (NOVOLOG) 1 VIAL SQ SCH ×2 (16:55→21:14)
[2019-03-24] MEDS: THIAMINE HCL 100 MG TABLET (FP) PO SCH (21:13)
[2019-03-24] MEDS: MELATONIN 5 MG TABLETS PO PRN (21:13)
[2019-03-24] MEDS: risperiDONE 2 MG TABLET PO SCH (21:13)
[2019-03-24] MEDS ORDERED: INSULIN (NOVOLOG) ASPART 100 UNITS/ML 10ML VIAL ONE (22:00)
[2019-03-24] MEDS ORDERED: INSULIN (LEVEMIR) 100 UNITS/ML UNITS SQ SCH (22:00)
[2019-03-25] MEDS: metFORMIN HCL 500 MG TABLET (FP) PO SCH ×2 (06:45→16:45)
[2019-03-25] MEDS: INSULIN SLIDING SCALE (NOVOLOG) 1 VIAL SQ SCH ×4 (06:46→21:22)
--- NOTE | 2019-03-25 09:31 | CONSULT ---
[facility] Psychiatric Consult - Data Date of interview: 03/25/19 Admission source: Self-referred Identifying data: Mr Solomon is a 52 years old Black male, unemployed receiving SSI, homeless seeking detox treatment for alcohol, cocaine , benzodiazepine, cannabis Substance Abuse History: Reports history of alcohol, cocaine, xanax, marijuana and k2 use. Refer to addiction counselor's summary for further information Medical History: Significant for GERD, eczema, diabetes mellitus and a history of surgery for right inguinal hernia repair in 2007. smokes 4 cigarettes daily Psychiatric History: Patient is known to this facility from previous admissions. Historical narrative remains consistent. He reports that his first psychiatric contact occured in 2005 when he was admitted to [facility] due to auditory hallucinations and suicidal ideations. He was diagnosed with schizoaffective disorder and prescribed seroquel 100mg. After discharge he continued psychiatric outpatient treatment at [facility]. Throughout the years he reports additional hospitalizations at [facility] and most recently at [facility] two years ago after bizzare behavior secondary to drug use. Mr. solomon reports past treatment with risperdal when admitted to detox/rehab faciliites. States the seroquel caused him to gain weight while in rehab in the past. Reports receiving Risperdal 2mg last night while at [facility] after seeking admission due to depressed mood. Patient is not currently followed by an outpatient psychiatrist. He was seen by MAXIMILIANO Patino on 03/21/19 and he was continued on Risperdal 2 mg/hs. He denies experiencing psychotic, manic or depressive symptoms, S/H ideation. However, reports feeling anxious and sleeping poorly. Requests to be ordered Trazadone 100 mg/hs to which he responded favorably in the past. Physical/Sexual Abuse/Trauma History: Denies history of emotional, physical or sexual abuse as well as DV relationship. No service Additional Comment: Reports history of 5 previous arrests including 4 felony convictions.Denies being on parole/probation Mental Status Exam - Mental Status Exam Alert and Oriented to: Time, Place, Person Cognitive Function: Fair Patient Appearance: Well Groomed Mood: Anxious Affect: Appropriate Patient Behavior: Cooperative Speech Pattern: Clear Voice Loudness: Normal Thought Process: Intact, Goal Oriented Thought Disorder: Not Present Hallucinations: Denies Suicidal Ideation: Denies Homicidal Ideation: Denies Insight/Judgement: Fair Sleep: Poorly Appetite: Good Muscle strength/Tone: Normal Gait/Station: Normal Psychiatric Findings - Problem List ([place] 1, 2,3) (1) Schizoaffective disorder Current Visit: No Status: Chronic (2) Bipolar disorder Current Visit: No Status: Ruled-out (3) Substance-induced anxiety disorder Current Visit: Yes Status: Acute (4) Substance-induced sleep disorder Current Visit: Yes Status: Acute (5) Alcohol dependence Current Visit: Yes Status: Acute (6) Cocaine dependence Current Visit: No Status: Acute (7) Cannabis dependence Current Visit: No Status: Acute (8) Nicotine dependence Current Visit: Yes Status: Chronic (9) Anemia Current Visit: No Status: Chronic Qualifiers: Anemia type: unspecified type Qualified Code(s): D64.9 - Anemia, unspecified (10) DM Diabetes mellitus type 2 Current Visit: No Status: Chronic (11) Eczema Current Visit: No Status: Chronic Qualifiers: Eczema type: unspecified Qualified Code(s): L30.9 - Dermatitis, unspecified (12) GERD (gastroesophageal reflux disease) Current Visit: No Status: Chronic Qualifiers: Esophagitis presence: without esophagitis Qualified Code(s): K21.9 - Gastro -esophageal reflux disease without esophagitis (13) HTN (hypertension) Current Visit: Yes Status: Acute - Initial Treatment Plan Initial Treatment Plan: 1) Continue Risperdal 2 mg po HS. 2) Start Trazadone 100 mg po HS. 3) Continue inpatient rehabilitation
[2019-03-25] MEDS ORDERED: FLU VACCINE QUAD 60 MCG/0.5 ML (MDV 19-20) IM ONE (10:00)
[2019-03-25] MEDS ORDERED: LISINOPRIL 10 MG TABLET (FP) PO SCH (10:00)
[2019-03-25] MEDS: PRENATAL VITAMINS W/ FOLIC ACID TABLET (FP) PO SCH (10:10)
[2019-03-25] MEDS ORDERED: INSULIN (NOVOLOG) ASPART 100 UNITS/ML 10ML VIAL ONE ×4 (11:22→21:54)
[2019-03-25] MEDS ORDERED: PNEUMOCOCCAL 23 VACCINE 0.5 ML VIAL IM ONE (12:00)
[2019-03-25] MEDS ORDERED: PNEUMOC 13-VAL CONJ-DIP CRM/PF 0.5 ML DISP.SYRIN IM ONE (13:42)
--- NOTE | 2019-03-25 14:01 | PN ---
[facility] Progress Note Note: Pt was admitted to this unit from [facility] after completing detox. Pt was in detox for alcohol,cocaine and k2 use. Pt has MH history- was seen by Dr. Munoz this morning and put on meds. Pt states he is tolerating them so far. b/s is getting better- exercising. Vital Signs - 24 hr 03/25/19 03/25/19 00:30 06:50 Temperature 97.1 F L Pulse Rate 83 Respiratory 18 18 Rate Blood Pressure 160/91 BP a bit high today,on lisinopril a/p: substance use disorder- continue rehab HTN- on lisinopril will increase by 5mg to 15mg, clonidine prn DM- will monitor, and increase the levemir per pt request
--- NOTE | 2019-03-25 14:46 | EKG ---
Test Reason : Blood Pressure : / mmHG Vent. Rate : 088 BPM Atrial Rate : 088 BPM P-R Int : 156 ms QRS Dur : 088 ms QT Int : 354 ms P-R-T Axes : 058 037 037 degrees QTc Int : 428 ms SINUS RHYTHM WITH PREMATURE ATRIAL COMPLEXES WITH ABERRANT CONDUCTION POSSIBLE LEFT ATRIAL ENLARGEMENT NONSPECIFIC T WAVE ABNORMALITY ABNORMAL ECG WHEN COMPARED WITH ECG OF 13-NOV-2017 09:55, ABERRANT CONDUCTION IS NOW PRESENT Confirmed by DAREK KRAFT, ARLEEN ([id number]) on 03/25/2019 2:46:14 PM Referred By: Zita SCALES Confirmed By:ARLEEN OSWALD MD
[2019-03-25] MEDS: risperiDONE 2 MG TABLET PO SCH (21:19)
[2019-03-25] MEDS: traZODone HCL 100 MG TABLET (FP) PO SCH (21:19)
[2019-03-25] MEDS: THIAMINE HCL 100 MG TABLET (FP) PO SCH (21:19)
[2019-03-25] MEDS: INSULIN (LEVEMIR) 100 UNITS/ML UNITS SQ SCH (21:23)
[2019-03-26] MEDS: cloNIDine HCL 0.1 MG TABLET PO PRN (06:12)
[2019-03-26] MEDS: metFORMIN HCL 500 MG TABLET (FP) PO SCH ×2 (06:12→16:46)
[2019-03-26] MEDS: INSULIN SLIDING SCALE (NOVOLOG) 1 VIAL SQ SCH ×4 (06:13→21:19)
[2019-03-26] MEDS: PRENATAL VITAMINS W/ FOLIC ACID TABLET (FP) PO SCH (10:17)
[2019-03-26] MEDS: LISINOPRIL 5 MG TABLET (FP) PO SCH (10:18)
[2019-03-26] MEDS ORDERED: INSULIN (NOVOLOG) ASPART 100 UNITS/ML 10ML VIAL ONE ×2 (12:09→16:46)
[2019-03-26] MEDS: THIAMINE HCL 100 MG TABLET (FP) PO SCH (21:16)
[2019-03-26] MEDS: risperiDONE 2 MG TABLET PO SCH (21:16)
[2019-03-26] MEDS: traZODone HCL 100 MG TABLET (FP) PO SCH (21:16)
[2019-03-26] MEDS: INSULIN (LEVEMIR) 100 UNITS/ML UNITS SQ SCH (21:17)
[2019-03-27] MEDS: metFORMIN HCL 500 MG TABLET (FP) PO SCH ×2 (07:14→16:58)
[2019-03-27] MEDS: INSULIN SLIDING SCALE (NOVOLOG) 1 VIAL SQ SCH ×4 (07:14→21:53)
[2019-03-27] MEDS: LISINOPRIL 5 MG TABLET (FP) PO SCH (09:39)
[2019-03-27] MEDS: PRENATAL VITAMINS W/ FOLIC ACID TABLET (FP) PO SCH (09:39)
[2019-03-27] MEDS ORDERED: INSULIN (NOVOLOG) ASPART 100 UNITS/ML 10ML VIAL ONE ×2 (12:04→16:55)
[2019-03-27] MEDS: THIAMINE HCL 100 MG TABLET (FP) PO SCH (21:53)
[2019-03-27] MEDS: traZODone HCL 100 MG TABLET (FP) PO SCH (21:53)
[2019-03-27] MEDS: risperiDONE 2 MG TABLET PO SCH (21:54)
[2019-03-27] MEDS: INSULIN (LEVEMIR) 100 UNITS/ML UNITS SQ SCH (21:57)
[2019-03-28] MEDS: metFORMIN HCL 500 MG TABLET (FP) PO SCH ×2 (07:03→16:28)
[2019-03-28] MEDS: NICOTINE POLACRILEX 2 MG GUM BUC PRN ×2 (07:04→10:01)
[2019-03-28] MEDS: INSULIN SLIDING SCALE (NOVOLOG) 1 VIAL SQ SCH ×4 (07:04→21:18)
[2019-03-28] MEDS: PRENATAL VITAMINS W/ FOLIC ACID TABLET (FP) PO SCH (10:00)
[2019-03-28] MEDS: LISINOPRIL 5 MG TABLET (FP) PO SCH (10:00)
[2019-03-28] MEDS ORDERED: INSULIN (NOVOLOG) ASPART 100 UNITS/ML 10ML VIAL ONE (12:03)
[2019-03-28] MEDS: INSULIN (LEVEMIR) 100 UNITS/ML UNITS SQ SCH (21:20)
[2019-03-28] MEDS: traZODone HCL 100 MG TABLET (FP) PO SCH (21:21)
[2019-03-28] MEDS: risperiDONE 2 MG TABLET PO SCH (21:21)
[2019-03-28] MEDS: THIAMINE HCL 100 MG TABLET (FP) PO SCH (21:21)
[2019-03-28] MEDS: MELATONIN 5 MG TABLETS PO PRN (21:22)
[2019-03-29] MEDS: metFORMIN HCL 500 MG TABLET (FP) PO SCH ×2 (07:15→16:43)
[2019-03-29] MEDS: INSULIN SLIDING SCALE (NOVOLOG) 1 VIAL SQ SCH ×4 (07:16→21:15)
[2019-03-29] MEDS: LISINOPRIL 5 MG TABLET (FP) PO SCH (10:15)
[2019-03-29] MEDS: PRENATAL VITAMINS W/ FOLIC ACID TABLET (FP) PO SCH (10:15)
[2019-03-29] MEDS: NICOTINE POLACRILEX 2 MG GUM BUC PRN ×3 (10:28→21:14)
[2019-03-29] MEDS ORDERED: INSULIN (NOVOLOG) ASPART 100 UNITS/ML 10ML VIAL ONE ×3 (11:34→21:56)
[2019-03-29] MEDS: risperiDONE 2 MG TABLET PO SCH (21:13)
[2019-03-29] MEDS: traZODone HCL 100 MG TABLET (FP) PO SCH (21:13)
[2019-03-29] MEDS: THIAMINE HCL 100 MG TABLET (FP) PO SCH (21:14)
[2019-03-29] MEDS: MELATONIN 5 MG TABLETS PO PRN (21:14)
[2019-03-29] MEDS: INSULIN (LEVEMIR) 100 UNITS/ML UNITS SQ SCH (21:15)
[2019-03-30] MEDS: metFORMIN HCL 500 MG TABLET (FP) PO SCH ×2 (06:36→16:33)
[2019-03-30] MEDS: NICOTINE POLACRILEX 2 MG GUM BUC PRN ×2 (06:38→16:35)
[2019-03-30] MEDS: cloNIDine HCL 0.1 MG TABLET PO PRN (06:39)
[2019-03-30] MEDS: INSULIN SLIDING SCALE (NOVOLOG) 1 VIAL SQ SCH ×4 (08:10→21:20)
[2019-03-30] MEDS ORDERED: COLLOIDAL OATMEAL 1 BAR EACH TP PRN (09:28)
[2019-03-30] MEDS: PRENATAL VITAMINS W/ FOLIC ACID TABLET (FP) PO SCH (09:57)
[2019-03-30] MEDS: LISINOPRIL 5 MG TABLET (FP) PO SCH (09:57)
[2019-03-30] MEDS: TOLNAFTATE 1% CREAM 15 GM TUBE TP SCH ×2 (10:00→21:21)
[2019-03-30] MEDS: HYDROCORTISONE 1% TOPICAL CREAM 30 GM TUBE TP PRN (10:00)
[2019-03-30] MEDS ORDERED: INSULIN (NOVOLOG) ASPART 100 UNITS/ML 10ML VIAL ONE ×3 (11:37→22:01)
[2019-03-30] MEDS: MINERAL OIL/PETROLAT/WATER TOPICAL CREAM 113 GM JAR TP SCH (11:49)
[2019-03-30] MEDS: traZODone HCL 100 MG TABLET (FP) PO SCH (21:19)
[2019-03-30] MEDS: risperiDONE 2 MG TABLET PO SCH (21:19)
[2019-03-30] MEDS: MELATONIN 5 MG TABLETS PO PRN (21:19)
[2019-03-30] MEDS: THIAMINE HCL 100 MG TABLET (FP) PO SCH (21:19)
[2019-03-30] MEDS: INSULIN (LEVEMIR) 100 UNITS/ML UNITS SQ SCH (21:20)
[2019-03-31] MEDS: metFORMIN HCL 500 MG TABLET (FP) PO SCH ×2 (06:23→16:31)
[2019-03-31] MEDS: NICOTINE POLACRILEX 2 MG GUM BUC PRN ×2 (06:25→10:17)
[2019-03-31] MEDS: INSULIN SLIDING SCALE (NOVOLOG) 1 VIAL SQ SCH ×4 (06:25→21:19)
[2019-03-31] MEDS: LISINOPRIL 5 MG TABLET (FP) PO SCH (10:14)
[2019-03-31] MEDS: MINERAL OIL/PETROLAT/WATER TOPICAL CREAM 113 GM JAR TP SCH (10:14)
[2019-03-31] MEDS: PRENATAL VITAMINS W/ FOLIC ACID TABLET (FP) PO SCH (10:14)
[2019-03-31] MEDS: HYDROCORTISONE 1% TOPICAL CREAM 30 GM TUBE TP PRN (10:15)
[2019-03-31] MEDS: TOLNAFTATE 1% CREAM 15 GM TUBE TP SCH ×2 (10:15→21:21)
[2019-03-31] MEDS: INSULIN (LEVEMIR) 100 UNITS/ML UNITS SQ SCH (21:18)
[2019-03-31] MEDS: MELATONIN 5 MG TABLETS PO PRN (21:20)
[2019-03-31] MEDS: traZODone HCL 100 MG TABLET (FP) PO SCH (21:20)
[2019-03-31] MEDS: THIAMINE HCL 100 MG TABLET (FP) PO SCH (21:20)
[2019-03-31] MEDS: risperiDONE 2 MG TABLET PO SCH (21:20)
[2019-04-01] MEDS: metFORMIN HCL 500 MG TABLET (FP) PO SCH ×2 (06:52→16:36)
[2019-04-01] MEDS: cloNIDine HCL 0.1 MG TABLET PO PRN (06:54)
[2019-04-01] MEDS: INSULIN SLIDING SCALE (NOVOLOG) 1 VIAL SQ SCH ×4 (06:55→21:20)
[2019-04-01] MEDS: LISINOPRIL 5 MG TABLET (FP) PO SCH (10:30)
[2019-04-01] MEDS: PRENATAL VITAMINS W/ FOLIC ACID TABLET (FP) PO SCH (10:30)
[2019-04-01] MEDS: MINERAL OIL/PETROLAT/WATER TOPICAL CREAM 113 GM JAR TP SCH (10:32)
[2019-04-01] MEDS: TOLNAFTATE 1% CREAM 15 GM TUBE TP SCH ×2 (10:32→21:20)
[2019-04-01] MEDS: NICOTINE POLACRILEX 2 MG GUM BUC PRN ×2 (10:34→21:20)
[2019-04-01] MEDS: HYDROCORTISONE 1% TOPICAL CREAM 30 GM TUBE TP PRN (10:34)
[2019-04-01] MEDS: THIAMINE HCL 100 MG TABLET (FP) PO SCH (21:17)
[2019-04-01] MEDS: risperiDONE 2 MG TABLET PO SCH (21:17)
[2019-04-01] MEDS: traZODone HCL 100 MG TABLET (FP) PO SCH (21:17)
[2019-04-01] MEDS: INSULIN (LEVEMIR) 100 UNITS/ML UNITS SQ SCH (21:19)
[2019-04-02] MEDS: metFORMIN HCL 500 MG TABLET (FP) PO SCH ×2 (06:35→16:51)
[2019-04-02] MEDS: NICOTINE POLACRILEX 2 MG GUM BUC PRN ×2 (06:36→16:55)
[2019-04-02] MEDS: INSULIN SLIDING SCALE (NOVOLOG) 1 VIAL SQ SCH ×4 (06:49→21:17)
[2019-04-02] MEDS: MINERAL OIL/PETROLAT/WATER TOPICAL CREAM 113 GM JAR TP SCH (10:08)
[2019-04-02] MEDS: PRENATAL VITAMINS W/ FOLIC ACID TABLET (FP) PO SCH (10:08)
[2019-04-02] MEDS: LISINOPRIL 5 MG TABLET (FP) PO SCH (10:08)
[2019-04-02] MEDS: TOLNAFTATE 1% CREAM 15 GM TUBE TP SCH ×2 (10:08→21:17)
[2019-04-02] MEDS: HYDROCORTISONE 1% TOPICAL CREAM 30 GM TUBE TP PRN (10:11)
[2019-04-02] MEDS: METHOCARBAMOL 500 MG TABLET PO PRN ×2 (14:29→21:17)
[2019-04-02] MEDS ORDERED: INSULIN (NOVOLOG) ASPART 100 UNITS/ML 10ML VIAL ONE (21:03)
[2019-04-02] MEDS: risperiDONE 2 MG TABLET PO SCH (21:15)
[2019-04-02] MEDS: THIAMINE HCL 100 MG TABLET (FP) PO SCH (21:15)
[2019-04-02] MEDS: INSULIN (LEVEMIR) 100 UNITS/ML UNITS SQ SCH (21:15)
[2019-04-02] MEDS: traZODone HCL 100 MG TABLET (FP) PO SCH (21:15)
[2019-04-03] MEDS: metFORMIN HCL 500 MG TABLET (FP) PO SCH ×2 (06:51→16:28)
[2019-04-03] MEDS: INSULIN SLIDING SCALE (NOVOLOG) 1 VIAL SQ SCH ×4 (06:52→21:14)
[2019-04-03] MEDS: PRENATAL VITAMINS W/ FOLIC ACID TABLET (FP) PO SCH (10:22)
[2019-04-03] MEDS: LISINOPRIL 5 MG TABLET (FP) PO SCH (10:22)
[2019-04-03] MEDS: TOLNAFTATE 1% CREAM 15 GM TUBE TP SCH ×2 (10:22→21:15)
[2019-04-03] MEDS: MINERAL OIL/PETROLAT/WATER TOPICAL CREAM 113 GM JAR TP SCH (10:22)
[2019-04-03] MEDS: NICOTINE POLACRILEX 2 MG GUM BUC PRN (10:23)
[2019-04-03] MEDS: METHOCARBAMOL 500 MG TABLET PO PRN ×2 (10:23→21:13)
[2019-04-03] MEDS ORDERED: INSULIN (NOVOLOG) ASPART 100 UNITS/ML 10ML VIAL ONE ×2 (12:06→16:43)
[2019-04-03] MEDS: risperiDONE 2 MG TABLET PO SCH (21:13)
[2019-04-03] MEDS: traZODone HCL 100 MG TABLET (FP) PO SCH (21:13)
[2019-04-03] MEDS: INSULIN (LEVEMIR) 100 UNITS/ML UNITS SQ SCH (21:14)
[2019-04-03] MEDS: THIAMINE HCL 100 MG TABLET (FP) PO SCH (21:15)
[2019-04-04] MEDS: metFORMIN HCL 500 MG TABLET (FP) PO SCH ×2 (06:38→16:38)
[2019-04-04] MEDS: NICOTINE POLACRILEX 2 MG GUM BUC PRN ×2 (06:40→09:48)
[2019-04-04] MEDS: METHOCARBAMOL 500 MG TABLET PO PRN ×2 (06:40→09:47)
[2019-04-04] MEDS: INSULIN SLIDING SCALE (NOVOLOG) 1 VIAL SQ SCH ×4 (06:41→21:19)
[2019-04-04] MEDS: PRENATAL VITAMINS W/ FOLIC ACID TABLET (FP) PO SCH (09:47)
[2019-04-04] MEDS: LISINOPRIL 5 MG TABLET (FP) PO SCH (09:47)
[2019-04-04] MEDS: TOLNAFTATE 1% CREAM 15 GM TUBE TP SCH ×2 (09:48→22:12)
[2019-04-04] MEDS: MINERAL OIL/PETROLAT/WATER TOPICAL CREAM 113 GM JAR TP SCH (09:48)
[2019-04-04] MEDS: risperiDONE 2 MG TABLET PO SCH (21:17)
[2019-04-04] MEDS: THIAMINE HCL 100 MG TABLET (FP) PO SCH (21:17)
[2019-04-04] MEDS: traZODone HCL 100 MG TABLET (FP) PO SCH (21:17)
[2019-04-04] MEDS: INSULIN (LEVEMIR) 100 UNITS/ML UNITS SQ SCH (21:18)
[2019-04-05] MEDS: metFORMIN HCL 500 MG TABLET (FP) PO SCH (06:51)
[2019-04-05] MEDS: NICOTINE POLACRILEX 2 MG GUM BUC PRN (06:51)
[2019-04-05 07:08] VITALS: BP 155/95; PULSE 77; TEMP 97.8
== END 2019-04-05 07:15 | disposition left against medical advice (07) | DRG 770 ==
LOC: YASAS 12:22 → Y5N 12:23
PROVIDERS: ADMIT Neuromusculoskeletal Medicine & OMM; ATTEND Neuromusculoskeletal Medicine & OMM
PROC: HZ42ZZZ Group Counseling for Substance Abuse Treatment, Cognitive-Behavioral (ICD-10-PCS; principal; 2019-03-24)
DX: F10.20 Alcohol dependence, uncomplicated (principal); F14.20 Cocaine dependence, uncomplicated; F12.20 Cannabis dependence, uncomplicated; F17.210 Nicotine dependence, cigarettes, uncomplicated; F31.9 Bipolar disorder, unspecified; F19.280 Other psychoactive substance dependence with psychoactive substance-induced anxiety disorder; F19.282 Other psychoactive substance dependence with psychoactive substance-induced sleep disorder; E11.9 Type 2 diabetes mellitus without complications; K21.9 Gastro-esophageal reflux disease without esophagitis; L30.9 Dermatitis, unspecified; D64.9 Anemia, unspecified
CPT/HCPCS: 82962; 93005; 93010; G0008; J0735; Q2036